=== PATIENT | male | born 1950 | race Caucasian/White ===

== ENCOUNTER 2021-02-06 06:33 | Day surgery (SDC) | payer OTHER ==
--- NOTE | 2021-02-05 14:53 | RAD REPORT ---
EXAM DESCRIPTION: RAD - Chest Pa And Lat (2 Views) - 02/05/2021 2:48 pm CLINICAL HISTORY: preop Chest pain. COMPARISON: CHEST PA AND LAT 2 VIEW dated 08/25/2012 FINDINGS: The lungs are clear. The heart is moderately enlarged in size. No displaced fractures.
[2021-02-05 14:56] LABS: Absolute Lymphocytes (CBC) 0.9 K/uL (0.7-4.9); Basophils % 0.5 % (0-1.3); Hematocrit 38.7 % (39.6-49.0); Lymphocytes % 9.6 % (15.3-44.8); MPV 10.2 fL (7.6-11.3); RBC Red Blood Cell Count 4.23 M/uL (4.33-5.43)
[2021-02-05 15:10] LABS: Potassium 3.9 mmol/L (3.5-5.1)
[2021-02-06] MEDS ORDERED: Ringers Lactate 1,000 ML IV ONE ×2 (07:10→08:52)
[2021-02-06] MEDS ORDERED: propofoL 200 MG/20 ML VIAL IV ONE (07:43)
[2021-02-06] MEDS ORDERED: LIDOCAINE 2% MPF 5 ML VIAL ONE (07:44)
[2021-02-06] MEDS ORDERED: ONDANSETRON 4 MG/2 ML VIAL ONE ×2 (07:44→09:22)
[2021-02-06] MEDS ORDERED: FENTANYL CITR 100 MCG/2 ML ONE ×2 (07:44→08:16)
[2021-02-06] MEDS ORDERED: KETOROLAC 30 MG/ML INJ ONE (07:44)
[2021-02-06] MEDS ORDERED: dexAMETHasone 4 MG/ML VIAL ONE (07:44)
[2021-02-06] MEDS ORDERED: CEFAZOLIN/SWI 1gm 1 GM/10 ML SYR ONE (07:48)
[2021-02-06] MEDS ORDERED: Phenylephrine HCl 10 MG/ML 1 ML VIAL ONE (08:04)
[2021-02-06] MEDS ORDERED: NS 0.9% VIAL 10 ML ONE (08:04)
[2021-02-06] MEDS ORDERED: ROCURONIUM 50 MG/5 ML VIAL IV ONE (08:06)
--- NOTE | 2021-02-06 08:35 | P.BOP ---
Preoperative diagnosis: tender recurrent right inguinal hernia, tender umbilical hernia Postoperative diagnosis: same Primary procedure: 1. Open repair tender recurrent right inguinal hernia with mesh Secondary procedure: 2. Open repair tender umbilical hernia Learning And Development Officer: YELENA ROUSSEAU (TELECOM SPECIALIST) Estimated blood loss: <10cc Specimen: hernia sac Findings: as above Anesthesia: General Complications: None Implants: medium mesh and plug Transferred to: Recovery Room Condition: Good
[2021-02-06] MEDS ORDERED: NA CHLORIDE 0.9% 50 ML ONE (08:44)
[2021-02-06] MEDS ORDERED: GLYCOPYRROLATE 0.2 MG/ML SYR ONE (08:47)
[2021-02-06] MEDS ORDERED: NEOSTIGMINE 1 MG/ML -5 ML ONE (08:51)
[2021-02-06] MEDS: FENTANYL CITR 250 MCG/5 ML ONE ×3 (09:07→09:18)
[2021-02-06] MEDS ORDERED: HYDROMORPHONE HCL 1 MG/ML INJ ONE (09:42)
[2021-02-06] MEDS ORDERED: PROMETHAZINE INJ 25 MG/ML AMP ONE (09:42)
[2021-02-06] MEDS ORDERED: HYDROCODONE/APAP 10/325 TAB ONE (10:37)
[2021-02-06 11:22] VITALS: BP 148/99; TEMP 96.9
[2021-02-06 11:24] VITALS: O2SAT 95
== END 2021-02-06 10:24 | disposition home or self-care (01) ==
LOC: OR 06:33
PROVIDERS: ATTEND Surgery
PROC: 0WQF0ZZ Repair Abdominal Wall, Open Approach (ICD-10-PCS; principal; 2021-02-06 07:30)
PROC: 0YU50JZ Supplement Right Inguinal Region with Synthetic Substitute, Open Approach (ICD-10-PCS; 2021-02-06 07:30)
DX: K40.91 Unilateral inguinal hernia, without obstruction or gangrene, recurrent (principal); K42.9 Umbilical hernia without obstruction or gangrene; Z20.822 Contact with and (suspected) exposure to COVID-19
CPT/HCPCS: 85025; 80048; 36415; 88302; 71046; 49585; 49505; U0003; J2704; J1100; J2550; J2370; J3010 ×3; J1170; J2710; J0690; J7120 ×2; J2405 ×2; 88304

== ENCOUNTER 2021-04-12 20:05 | Emergency (ER) | payer OTHER ==
[2021-04-12 21:11] LABS: Basophils % 1.3 % (0-1.3); Hematocrit 16.5 % (39.6-49.0); Lymphocytes % 16.5 % (15.3-44.8); MPV 9.1 fL (7.6-11.3); RBC Red Blood Cell Count 2.12 M/uL (4.33-5.43)
[2021-04-12 21:18] LABS: Protime INR 3.82
[2021-04-12] MEDS ORDERED: NA CHLORIDE 0.9% 250 ML ONE ×2 (21:22→22:38)
[2021-04-12] MEDS ORDERED: PANTOPRAZOLE 40 MG INJ ONE (21:22)
--- NOTE | 2021-04-12 21:27 | RAD REPORT ---
EXAM DESCRIPTION: CT - Head Brain Wo Cont - 04/12/2021 9:15 pm CLINICAL HISTORY: Syncope;Dizziness Headache, drowsiness COMPARISON: Abdomen Pelvis Wo Contrast dated 04/12/2021 TECHNIQUE: All CT scans are performed using dose optimization technique as appropriate and may inclu de automated exposure control or mA/KV adjustment according to patient size. FINDINGS: No intracranial hemorrhage, hydrocephalus or extra-axial fluid collection.Mild generalized brain atrophy noted.No areas of brain edema or evidence of midline shift. The paranasal sinuses and mastoids are clear. The calvarium is intact. IMPRESSION: No acute intracranial abnormality.
--- NOTE | 2021-04-12 21:33 | RAD REPORT ---
EXAM DESCRIPTION: CT - Abdomen Pelvis Wo Contrast - 04/12/2021 9:21 pm CLINICAL HISTORY: Abdominal pain. GI BLEED COMPARISON: No comparisons TECHNIQUE: CT imaging of the abdomen and pelvis was performed without contrast. Solid organ, bowel a nd vascular assessment is limited due to lack of IV and oral contrast. All CT scans are performed using dose optimization technique as appropriate and may include automated exposure control or mA/KV adjustment according to patient size. FINDINGS: Small right pleural effusion.Mild free fluid is seen in the upper abdomen. The liver contains a vague 12 mm low-density lesion in the left lobe, incompletely assessed.No aggres sive liver lesion or biliary dilatation seen. The spleen, pancreas, adrenal glands and kidneys are wi thin normal limits. Mild free fluid is seen in the pelvis. There is significant stool in the rectosigmoid colon. Prominen t diverticulosis of the sigmoid colon is present. No evidence of diverticulitis. No free air or bowel obstruction. The appendix is normal. The osseous structures are within normal limits. IMPRESSION: Advanced sigmoid diverticulosis coli without diverticulitis. Small right pleural effusion. Mild free fluid in the abdomen and pelvis. A limited non-contrast examination was performed as detailed.
[2021-04-12 21:36] LABS: Anisocytosis 1+; Bilirubin Direct 0.7 mg/dL (0-0.2); Bilirubin Total 1.4 mg/dL (0.2-1.0); Blood Morphology Comment NOTED (NOT SEEN); Magnesium 2.2 mg/dL (1.8-2.4); Platelet Estimate ADEQ; Protein, Total 6.1 g/dL (6.4-8.2); Troponin (Emerg Dept Use Only) 0.02 ng/mL (0.0-0.045); White Blood Cell Scan OK (OK)
[2021-04-12 21:37] LABS: Potassium 2.9 mmol/L (3.5-5.1)
--- NOTE | 2021-04-12 21:45 | RAD REPORT ---
EXAM DESCRIPTION: RAD - Chest Single View - 04/12/2021 9:36 pm CLINICAL HISTORY: dizziness Chest pain. COMPARISON: Chest Pa And Lat (2 Views) dated 02/05/2021; CHEST PA AND LAT 2 VIEW dated 08/25/2012 FINDINGS: Portable technique limits examination quality. The lungs are grossly clear. The heart is moderately enlarged. No displaced fractures.
[2021-04-12 21:58] LABS: Urine Blood 1+ (Negative); Urine Glucose Negative (Negative); Urine Protein 1+ (Negative); Urine Specific Gravity 1.015 (1.005-1.030)
--- NOTE | 2021-04-12 22:34 | EDPHYS ---
[facility] Name: Deonte Rojo Age: 70 yrs Sex: Male : 1950 Arrival Date: 04/12/2021 Time: 20:10 Bed 4 Private MD: ED Physician Gavin Lee HPI: 04/12 20:43 This 70 yrs old Male presents to ER via EMS with complaints of Near Syncope. mh7 20:43 The patient has experienced near-syncope, almost passed out, felt dizzy, felt faint. mh7 Onset: The symptoms/episode began/occurred today. Duration: This was a single episode, that lasted an unknown period of time. Context: the episode(s) was witnessed, by no one, occurred at home, occurred while the patient was standing, walking, Just prior to the episode the patient experienced dizziness, lightheadedness. Associated injury: The patient did not suffer any apparent associated injury. 20:44 Associated signs and symptoms: Pertinent positives: dizziness, lightheadedness, mh7 shortness of breath, Pertinent negatives: abdominal pain, agitation, ataxia, blurred vision, chest pain, combativeness, confusion, diaphoresis, diarrhea, headache, nausea, numbness, palpitations, seizure, tingling, vertigo, vomiting, weakness, dark stools for the past few days. Current symptoms: Currently, the patient is not experiencing any symptoms, the patient feels back to baseline, no decreased level of consciousness, no confusion, no dysphasia, no headache, no paralysis, no visual changes. Historical: - Allergies: 20:15 No Known Allergies; em - PMHx: 20:15 Hyperlipidemia; Hypertension; Atrial Fib; em - PSHx: 20:15 Hernia repair; em - Immunization history:: Adult Immunizations up to date, Client reports receiving the 2nd dose of the Covid vaccine. - Social history:: Smoking status: Patient denies any tobacco usage or history of. ROS: 20:44 Constitutional: Negative for fever, chills, and weight loss, Eyes: Negative for injury, mh7 pain, redness, and discharge, ENT: Negative for injury, pain, and discharge, Neck: Negative for injury, pain, and swelling, Cardiovascular: Negative for chest pain, palpitations, and edema, Respiratory: Negative for shortness of breath, cough, wheezing, and pleuritic chest pain, Abdomen/GI: Negative for abdominal pain, nausea, vomiting, diarrhea, and constipation, Back: Negative for injury and pain, : Negative for injury, bleeding, discharge, and swelling, MS/Extremity: Negative for injury and deformity, Skin: Negative for injury, rash, and discoloration, Neuro: Negative for headache, weakness, numbness, tingling, and seizure, Psych: Negative for depression, anxiety, suicide ideation, homicidal ideation, and hallucinations, Allergy/Immunology: Negative for hives, rash, and allergies, Endocrine: Negative for neck swelling, polydipsia, polyuria, polyphagia, and marked weight changes, Hematologic/Lymphatic: Negative for swollen nodes, abnormal bleeding, and unusual bruising. Exam: 20:44 Constitutional: This is a well developed, well nourished patient who is awake, alert, mh7 and in no acute distress. Head/Face: Normocephalic, atraumatic. 20:44 Neck: Trachea midline, no thyromegaly or masses palpated, and no cervical lymphadenopathy. Supple, full range of motion without nuchal rigidity, or vertebral point tenderness. No Meningismus. Chest/axilla: Normal chest wall appearance and motion. Nontender with no deformity. No lesions are appreciated. Cardiovascular: Regular rate and rhythm with a normal S1 and S2. No gallops, murmurs, or rubs. Normal PMI, no JVD. No pulse deficits. Respiratory: Lungs have equal breath sounds bilaterally, clear to auscultation and percussion. No rales, rhonchi or wheezes noted. No increased work of breathing, no retractions or nasal flaring. Abdomen/GI: Soft, non-tender, with normal bowel sounds. No distension or tympany. No guarding or rebound. No evidence of tenderness throughout. 20:44 Back: No spinal tenderness. No costovertebral tenderness. Full range of motion. 20:44 MS/ Extremity: Pulses equal, no cyanosis. Neurovascular intact. Full, normal range of motion. Neuro: Awake and alert, GCS 15, oriented to person, place, time, and situation. Cranial nerves II-XII grossly intact. Motor strength 5/5 in all extremities. Sensory grossly intact. Cerebellar exam normal. Normal gait. Psych: Awake, alert, with orientation to person, place and time. Behavior, mood, and affect are within normal limits. 20:44 Eyes: Periorbital structures: appear normal, Pupils: equal, round, and reactive to light and accomodation, Extraocular movements: intact throughout, Conjunctiva: pale, bilaterally, Corneas: are normal, Sclera: no appreciated abnormality. 20:44 Abdomen/GI: Rectal exam: Prostate: normal, rectal tone normal, Stool: brown, guaiac positive, hemorrhoid(s), are not appreciated, mass, is not appreciated, swelling, is not appreciated, tenderness, is not appreciated, fecal impaction, is not appreciated, the exam is chaperoned by the nurse. 20:44 Skin: Appearance: Color: pale. Vital Signs: 20:10 BP 132 / 82; Pulse 89; Resp 18; Temp 97.8(O); Pulse Ox 97% on R/A; Weight 97.98 kg; em Height 6 ft. 1 in. (185.42 cm); Pain 0/10; 22:47 BP 112 / 69; Pulse 82; Resp 15; Temp 98.8; Pulse Ox 100% on 2 lpm NC; ea 23:27 BP 106 / 72; Pulse 83; Resp 14 S; Pulse Ox 97% ; bb 04/13 01:00 BP 116 / 70; Pulse 83; Resp 16; Temp 98.1; Pulse Ox 99% ; ea 02:00 BP 134 / 81; Pulse 80; Resp 16; Temp 97.8; Pulse Ox 99% ; ea 04/12 20:10 Body Mass Index 28.50 (97.98 kg, 185.42 cm) em MDM: 04/12 22:31 Differential Diagnosis: cardiac arrhythmia, cerebrovascular accident, drug effect, mh7 emotional response, GI bleed, idiopathic syncope, pseudo seizure, seizure, sepsis, transient ischemic attack, vasovagal episode. Data reviewed: vital signs, nurses notes, EMS record, lab test result(s), cardiac enzymes, CBC, electrolytes, urinalysis. Data interpreted: Pulse oximetry: on room air is 97 %. Interpretation: normal. Counseling: I had a detailed discussion with the patient and/or guardian regarding: the historical points, exam findings, and any diagnostic results supporting the discharge/admit diagnosis, lab results, radiology results, the need to transfer to another facility, [facility] does not immediately have the required specialist. Response to treatment: the patient's symptoms have mildly improved after treatment. 22:33 Patient medically screened. [facility] 04/12 20:34 Order name: Basic Metabolic Panel [facility] 04/12 20:34 Order name: CBC with Diff [facility] 04/12 20:34 Order name: LFT's [facility] 04/12 20:34 Order name: Magnesium [facility] 04/12 20:34 Order name: NT PRO-BNP; Complete Time: 21:43 [facility] 04/12 20:34 Order name: PT-INR; Complete Time: 21:25 [facility] 04/12 20:34 Order name: Troponin (emerg Dept Use Only); Complete Time: 21:43 [facility] 04/12 20:34 Order name: Type And Screen [facility] 04/12 20:35 Order name: Basic Metabolic Panel; Complete Time: 21:43 [facility] 04/12 20:35 Order name: CBC with Automated Diff; Complete Time: 21:43 [facility] 04/12 20:35 Order name: Liver (Hepatic) Function; Complete Time: 21:43 [facility] 04/12 20:35 Order name: Magnesium; Complete Time: 21:43 [facility] 04/12 21:05 Order name: Lipase; Complete Time: 21:43 [facility] 04/12 20:34 Order name: XRAY Chest (1 view); Complete Time: 21:51 [facility] 04/12 20:34 Order name: EKG; Complete Time: 20:35 [facility] 04/12 20:34 Order name: Cardiac monitoring; Complete Time: 21:10 [facility] 04/12 20:34 Order name: EKG - Nurse/Tech; Complete Time: 21:10 [facility] 04/12 20:42 Order name: CT Head Brain wo Cont; Complete Time: 21:35 [facility] 04/12 20:42 Order name: CT Abd/Pelvis - Without Contrast; Complete Time: 21:35 [facility] 04/12 21:36 Order name: CBC Smear Scan; Complete Time: 21:43 [facility] 04/12 21:52 Order name: Packed RBC Leukored [facility] 04/12 21:57 Order name: Urine Dipstick-Ancillary; Complete Time: 22:00 [facility] 04/12 22:35 Order name: ABO/RH no charge [facility] 04/12 20:34 Order name: IV Saline Lock; Complete Time: 21:10 [facility] 04/12 20:34 Order name: Labs collected and sent; Complete Time: 21:10 [facility] 04/12 20:34 Order name: O2 Per Protocol; Complete Time: 21:10 [facility] 04/12 20:34 Order name: O2 Sat Monitoring; Complete Time: 21:10 [facility] 04/12 20:34 Order name: Urine Dipstick-Ancillary (obtain specimen); Complete Time: 22:00 [facility] Administered Medications: 21:09 Drug: ProTONIX (pantoprazole) 80 mg Route: IVP; Site: right antecubital; 22:01 Follow up: Response: No adverse reaction 21:09 Drug: ProTONIX (pantoprazole) 8 mg/hr Route: IV; Rate: 25 ml/hr; Site: right ea antecubital; 04/13 02:16 Follow up: Response: No adverse reaction; IV Status: Infusion continued upon transfer 04/12 23:28 Drug: D5-1/2 NS with KCl 20 mEq/L 1000 ml Route: IV; Rate: 100 ml/hr; Site: right ea antecubital; 04/13 02:17 Follow up: Response: No adverse reaction; IV Status: Infusion continued upon transfer Disposition: 04/12/21 22:33 Transfer ordered to [facility]. Diagnosis are Symptomatic Anemia, GI Bleed, Coagulopathy. - Reason for transfer: Higher level of care. - Accepting physician is Dr. Burgos. - Condition is Stable. - Problem is new. - Symptoms have improved. Signatures: Dispatcher [employer] EDOR Jovan Morales RN RN em Attema, Lee, AR[employer] RANGER-C AR[employer] RANGER-Cla1 Yvette Sadnhu RN RN ea Holmes, Maurice, MD MD [facility] Corrections: (The following items were deleted from the chart) 04/12 21:05 20:43 LIPASE+C.LAB.BRZ ordered. EDOR EDMS 21:50 21:19 PACKED RBC LEUKORED -1+BB.LAB.BRZ ordered. EDOR EDMS 21:50 21:20 ABO/RH typing ordered. [facility] EDOR 21:50 21:20 Antibody Screen ordered. [facility] 04/13 00:02 04/12 22:33 04/12/2021 22:33 Transfer ordered to [facility]. mh7 Diagnosis is Symptomatic Anemia; GI Bleed; Coagulopathy. Reason for transfer: Higher level of care. Accepting physician is Dr. Coffey. Condition is Stable. Problem is new. Symptoms have improved. mh7 04/13 02:16 00:02 04/12/2021 22:33 Transfer ordered to [facility]. ea Diagnosis is Symptomatic Anemia; GI Bleed; Coagulopathy. Reason for transfer: Higher level of care. Accepting physician is Dr. Burgos. Condition is Stable. Problem is new. Symptoms have improved. mh7
--- NOTE | 2021-04-12 22:34 | ER ---
Nurse's Notes [facility] Name: Deonte Rojo Age: 70 yrs Sex: Male : 1950 Arrival Date: 04/12/2021 Time: 20:10 Bed 4 Private MD: Diagnosis: Symptomatic Anemia;GI Bleed;Coagulopathy Presentation: 04/12 20:10 Chief complaint: EMS states: was at home and had a near syncope, felt dizzy for a few em days, also reports dark stools for a few days, denies pain, had a hernia repair on February 13. Coronavirus screen: Client denies travel out of the [place] in the last 14 days. Ebola Screen: Patient negative for fever greater than or equal to 101.5 degrees Fahrenheit, and additional compatible Ebola Virus Disease symptoms Patient denies exposure to infectious person. Patient denies travel to an Ebola-affected area in the 21 days before illness onset. No symptoms or risks identified at this time. Initial Sepsis Screen: Does the patient meet any 2 criteria? No. Patient's initial sepsis screen is negative. Does the patient have a suspected source of infection? No. Patient's initial sepsis screen is negative. Risk Assessment: Do you want to hurt yourself or someone else? Patient reports no desire to harm self or others. Onset of symptoms was April 12, 2021. 20:10 Method Of Arrival: EMS: [facility] em 20:10 Acuity: [place] 3 em Historical: - Allergies: 20:15 No Known Allergies; em - PMHx: 20:15 Hyperlipidemia; Hypertension; Atrial Fib; em - PSHx: 20:15 Hernia repair; em - Immunization history:: Adult Immunizations up to date, Client reports receiving the 2nd dose of the Covid vaccine. - Social history:: Smoking status: Patient denies any tobacco usage or history of. Screenin:43 Abuse screen: Denies threats or abuse. Nutritional screening: No deficits noted. ea Tuberculosis screening: No symptoms or risk factors identified. Fall Risk IV access (20 points). Assessment: 20:50 General: Appears in no apparent distress. Behavior is appropriate for age. Pain: Denies ea pain. Neuro: Level of Consciousness is awake, alert, obeys commands, Oriented to person, place, situation. Cardiovascular: Patient's skin is warm and dry. Respiratory: Airway is patent Respiratory effort is even, unlabored, Respiratory pattern is regular, symmetrical. Derm: Skin is dry, Skin is pale, Skin temperature is warm. 21:30 Reassessment: Patient and/or family updated on plan of care and expected duration. Pain ea level reassessed. Pt alert and oriented x 3. Respirations unlabored, skin warm, and dry. 23:28 Reassessment: Patient is alert, oriented x 3, equal unlabored respirations, skin bb warm/dry/pink. pt awaiting transfer. 04/13 01:10 Reassessment: Patient and/or family updated on plan of care and expected duration. Pain ea level reassessed. Patient is alert, oriented x 3, equal unlabored respirations, skin warm/dry/pink. Report called to receiving nurse at [facility]. Awaiting on ambulance for transportation. 02:14 Reassessment: Patient and/or family updated on plan of care and expected duration. Pain ea level reassessed. Patient is alert, oriented x 3, equal unlabored respirations, skin warm/dry/pink. [facility] at facility for transfer. Pt left ED via stretcher per EMS. Pt tolerating well. Vital Signs: 04/12 20:10 BP 132 / 82; Pulse 89; Resp 18; Temp 97.8(O); Pulse Ox 97% on R/A; Weight 97.98 kg; em Height 6 ft. 1 in. (185.42 cm); Pain 0/10; 22:47 BP 112 / 69; Pulse 82; Resp 15; Temp 98.8; Pulse Ox 100% on 2 lpm NC; ea 23:27 BP 106 / 72; Pulse 83; Resp 14 S; Pulse Ox 97% ; bb 04/13 01:00 BP 116 / 70; Pulse 83; Resp 16; Temp 98.1; Pulse Ox 99% ; ea 02:00 BP 134 / 81; Pulse 80; Resp 16; Temp 97.8; Pulse Ox 99% ; ea 04/12 20:10 Body Mass Index 28.50 (97.98 kg, 185.42 cm) em ED Course: 04/12 20:10 Patient arrived in ED. em 20:15 Triage completed. em 20:15 Arm band placed on. em 20:20 Gavin Lee MD is Attending Physician. [facility] 20:43 Yvette Sandhu, RN is Primary Nurse. ea 20:50 Patient has correct armband on for positive identification. Bed in low position. Call ea light in reach. Side rails up X2. 21:15 CT Head Brain wo Cont In Process Unspecified. EDMS 21:21 CT Abd/Pelvis - Without Contrast In Process Unspecified. EDMS 21:37 XRAY Chest (1 view) In Process Unspecified. EDMS 21:46 initiated a transfer with Leslie Dinh from [facility]. mw2 22:[address] Lee with the GI doctor from [facility]. mw2 22:02 No provider procedures requiring assistance completed. ea 22:[address] Lee with the Hospitalist from [facility]. mw2 22:[address] [facility] called to inform us that "we will have beds mw2 to accommodate the patient, but they are dirty right now when they are available we will call you back.". 23:34 Patient transferred, IV remains in place. ea 23:55 administrative approval given by Leslie Dinh/ patient has been accepted to [address] bed 2439/ Dr. Burgos accepted the patient in transfer/ report to be called to [phone]. Administered Medications: 21:09 Drug: ProTONIX (pantoprazole) 80 mg Route: IVP; Site: right antecubital; ea 22:01 Follow up: Response: No adverse reaction ea 21:09 Drug: ProTONIX (pantoprazole) 8 mg/hr Route: IV; Rate: 25 ml/hr; Site: right ea antecubital; 04/13 02:16 Follow up: Response: No adverse reaction; IV Status: Infusion continued upon transfer 04/12 23:28 Drug: D5-1/2 NS with KCl 20 mEq/L 1000 ml Route: IV; Rate: 100 ml/hr; Site: right ea antecubital; 04/13 02:17 Follow up: Response: No adverse reaction; IV Status: Infusion continued upon transfer Outcome: 04/12 22:33 ER care complete, transfer ordered by . [facility] 23:34 Instructed on the need for transfer, Demonstrated understanding of instructions. ea 04/13 02:14 Transferred by ground EMS to [facility], Transfer form completed. ea Condition: stable 02:16 Patient left the ED. ea Signatures: Dispatcher [employer] Jovan Hoffmann RN RN Hermila Montoya RN RN bb Antunez, Elena, RN RN ea [place], MyKena 2 Gavin Lee MD MD mh7
[2021-04-12] MEDS ORDERED: D5.45NS W/KCL 20MEQ 1,000 ML IV ONE (23:10)
[2021-04-13 02:30] VITALS: O2SAT 99
[2021-04-13 02:32] VITALS: BP 134/81; TEMP 97.8
--- NOTE | 2021-04-13 06:57 | EKG ---
Test Date: 2021-04-12 Test Time: 20:55:57 Blueprint Processor: SHELLIE MEASUREMENT RESULTS: Intervals: Rate: 86 HI: QRSD: 108 QT: 428 QTc: 512 [place]: P: HI: QRS: 91 T: -68 INTERPRETIVE STATEMENTS: Atrial fibrillation Rightward axis Cannot rule out Anterior infarct, age undetermined ST & T wave abnormality, consider inferolateral ischemia or digitalis effect Prolonged QT Abnormal ECG Compared to ECG 12/16/2017 08:05:54 Right-axis deviation now present Myocardial infarct finding now present ST (T wave) deviation now present Possible ischemia now present Prolonged QT interval now present Sinus bradycardia no longer present Sinus arrhythmia no longer present Electronically Signed On 04-13-21 06:56:11 CDT by Paddy Sanz
== END 2021-04-13 02:16 | disposition short-term general hospital (02) ==
LOC: ER 20:05
PROC: 30233N1 Transfusion of Nonautologous Red Blood Cells into Peripheral Vein, Percutaneous Approach (ICD-10-PCS; principal; 2021-04-13)
DX: D64.9 Anemia, unspecified (principal); D68.9 Coagulation defect, unspecified; K92.2 Gastrointestinal hemorrhage, unspecified; I10 Essential (primary) hypertension; I48.91 Unspecified atrial fibrillation
CPT/HCPCS: 93005; 85025; 80048; 36415; 86900; 83735; 86850; 85610; 86901; 80076; 81003; 84484; 83690; 83880; 70450; 74176; 71045; 36430; C9113; P9016 ×2; J7050 ×2; 96365; 96366; 99285

== ENCOUNTER 2022-02-10 23:03 | Inpatient (IN) | payer OTHER ==
--- OUTSIDE RECORDS SUMMARY | 2022-02-10 23:08 | XMS REPORT | Continuity of Care Document ---
:1950 Author Organization [facility] t Address [address] [place] [address] Care Team Providers Name Role Phone Unknown Primary Care Physician Unavailable RUY Attending Clinician Unavailable NITESH HIGH Attending Clinician Unavailable LILLY Attending Clinician Unavailable RUY Attending Clinician Unavailable RUY Admitting Clinician Unavailable NITESH HIGH Admitting Clinician Unavailable Payers Payer Name Policy Type Policy Number Effective Date Expiration Date S el MEDICARE A B [id number] 2013 00:00:00 GENERIC MEDICARE [id number] 2021 SUPPLEMENT 00:00:00 MEDICARE PART A AND [id number] 2013 B 00:00:00 MEDICARE PART A \\T\\ [id number] 2013 B - MEDICARE 00:00:00 MEDIGAP-GENERIC - [id number] 2021 GENERIC PAYOR 00:00:00 Problems This patient has no known problems. Allergies, Adverse Reactions, Alerts Allergy Allergy Status Severity Reaction(s) Onset Inactive Treating Comm ents Source Name Type Date Date Clinician NO KNOWN Allergy Active [facility] Social History Social Habit Start Date Stop Date Quantity Comments Source Exposure to Not sure [facility] SARS-CoV-2 (event) Tobacco use and 2021-11-18 2021-11-18 Former smokeless [facility] exposure 00:00:00 00:00:00 tobacco user Alcohol intake 2021-11-18 2021-11-18 Ex-drinker [facility] 00:00:00 00:00:00 (finding) Sex Assigned At [birth year] [facility] 00:00:00 00:00:00 Smoking Status Start Date Stop Date Source Ex-smoker 2021-11-18 00:00:00 2021-11-18 [facility]00:00 [facility] Ordered Filled Start Stop Current Ordering Indication Dosage Frequency Signature Comments Components Source Medication Medication Date Date Medication? Clinician (SIG) Name Name atenolol Yes 1{tbl} QD Take 1 [facility] (Tenormin) 1-28 tablet by [facility] th 100 MG 00:00: mouth 1 tablet 00 (one) time each day. furosemide Yes 40mg QD Take 40 mg U T (Lasix) 40 1-20 by mouth 1 Hea lth MG tablet 00:00: (one) time 00 each day. Eliquis 5 Yes 5mg Q.5D Take 5 mg UT MG tablet 1-20 by mouth 2 Heal th 00:00: (two) 00 times a day. azelastine Yes 1{spray QD Administer UT (Astelin) 1-13 } 1 spray [facility] 0.1 % nasal 00:00: into each spray 00 nostril 1 (one) time each day. zolpidem Yes 1{tbl} QD Take 1 UT (Ambien) 10 1-11 tablet by [facility] lth MG tablet 00:00: mouth 1 00 (one) time each day. potassium 2020-10 Yes 20meq QD Take 20 UT chloride CR 2-20 mEq by [facility] (Klor-Con 00:00: mouth 1 M20) 20 MEQ 00 (one) time ER tablet each day. with food irbesartan 2020-10 Yes 150mg QD Take 150 UT (Avapro) 2-16 mg by [facility] 150 MG 00:00: mouth 1 tablet 00 (one) time each day. rosuvastati 2020-10 Yes 1{tbl} QD Take 1 UT n (Crestor) 2-02 tablet by [facility] lt 20 MG 00:00: mouth 1 tablet 00 (one) time each day. gabapentin Yes 300mg Take 300 UT (Neurontin) 9-29 mg by [facility] 300 MG 00:00: mouth capsule 00 every night. TAKE 1 CAPSULE BY MOUTH EVERY DAY AT BEDTIME potassium 2020-0 2021- No 40meq QD Take 40 UT chloride CR 6-29 11-[facility] (K-Tab[facility] 20 00:00: 00:00 mouth 1 MEQ ER 00 :00 (one) time tablet each day. Flovent HFA Yes 1{puff} Inhale 1 UT 110 MCG/ACT 5-31 puff 1 Health inhaler 00:00: (one) time 00 each day if needed. hydroCHLORO Yes 12.5mg QD Take 12.5 UT thiazide 4-13 mg by Health (HYDRODiuri 00:00: mouth 1 l) 12.5 MG 00 (one) time tablet each day. Xarelto 20 Yes 20mg Take 20 mg U T MG tablet 4-11 by mouth 1 Heal th 00:00: (one) time 00 each day before evening meal. Vital Signs Vital Name Observation Time Observation Value Comments Source WEIGHT 2021-04-13 03:37:00 99.111 kg HEIGHT 2021-04-13 03:37:00 188 cm Systolic blood pressure 2021-11-18 16:29:00 161 mm[Hg] [facility] Diastolic blood pressure 2021-11-18 16:29:00 93 mm[Hg] [facility] Heart rate 2021-11-18 16:29:00 89 /min [facility] Body temperature 2021-11-18 16:29:00 36.28 Marie [facility] Body height 2021-11-18 16:29:00 185.4 cm [facility] 2021-11-18 16:29:00 82.555 kg [facility] BMI 2021-11-18 16:29:00 24.01 kg/m2 [facility] WEIGHT 2021-04-13 03:37:00 99.111 kg HEIGHT 2021-04-13 03:37:00 188 cm Procedures This patient has no known procedures. Encounters Start End Encounter Admission Attending Care Care Encounter Source Date/Time Date/Time Type Type Clinicians Facility Department ID 2021-07-28 Outpatient CARINA REDMOND Surgery [id number] [facility] 04:47:31 [facility] 2021-04-13 Inpatient ER CARINA HIGH Internal [id number] [facility] 03:21:00 [facility] 2021-11-18 2021-11-18 Office [facility] [id number] [place] 10:45:00 11:15:00 Visit ARIEL BURNS [id number] H [facility] [id number] [facility] [id number] 2021-05-01 2021-05-01 Outpatient DOM REDMOND M [id number] [facility] 16:21:23 16:38:26 [facility] Results Test Description Test Time Test Comments Results Result Comments Source TISSUE EXAM 2021-04-17 Surgical Pathology 08:12:00 Report Case: [id number] Authorizing Provider: Chester Redmond MD Collected: 04/15/2021 02:56 PM Ordering Location: [address] Received: 04/16/2021 09:23 AM Service Pathologist: Liam Daniel MD Specimens: A) - Polyp, Colon - Right/Ascending, Ascending Colon Polyp with Hot Snare B) - Polyp, Colon - Sigmoid, Sigmoid Colon Polyp with Hot Snare PART A RIGHT ASCENDING COLON POLYP, POLYPECTOMY:SPECIMEN CONSISTS OF FIBRINOUS DEBRIS AND ACUTE INFLAMMATORY CELLS. PART B SIGMOID COLON POLYP, POLYPECTOMY:TUBULAR ADENOMA. Signing Pathologist Direct Phone Line: [phone] ically signed by Liam Daniel MD on 04/17/2021 at 8:12 [id number] BLEEDA. Ascending colonB. Sigmoid colonA. Received in formalin labeled the patient's name, accession number and "ascending colon polyp" is a 0.8 x 0.3 x 0.2 cm velasquez soft tissue fragment which is submitted in toto in A1.B. Received in formalin labeled the patient's name, accession number and "sigmoid colon polyp" is a 0.2 x 0.2 x 0.1 cm velasquez soft tissue fragment which is filtered and submitted in toto in B1.LAKSHMI Laio, MILTON (ASCP)[facility], [facility] of Pathology, [address] [place] [address], [facility], Department of Pathology, [address] [place] [address], [facility], Department of Pathology, [address] [place] [address], [place] [address], BASIC METABOLIC PANEL 2021-04-16 07:41:00 Test Item Value Reference Range Interpretation Comme nts SODIUM (BEAKER) (test code 138 meq/L 136-145 = 381) POTASSIUM (BEAKER) (test 3.2 meq/L 3.5-5.1 L code = 379) CHLORIDE (BEAKER) (test 110 meq/L 98-107 H code = 382) CO2 (BEAKER) (test code = 21 meq/L 22-29 L 355) BLOOD UREA NITROGEN 9 mg/dL 7-21 (BEAKER) (test code = 354) CREATININE (BEAKER) (test 1.02 mg/dL 0.57-1.25 code = 358) GLUCOSE RANDOM (BEAKER) 95 mg/dL 70-105 (test code = 652) CALCIUM (BEAKER) (test code 8.5 mg/dL 8.4-10.2 = 697) EGFR (BEAKER) (test code = 72 mL/min/1.73 sq m ESTIMATED GFR IS NOT 1092) ACCURATE CRE ATININE CLEARANCE IN SC EDICTING GLOMERULAR FILT RATION RATE. ESTIMATED GFR IS NOT APPLICABLE FOR DIALYSIS PATIENTS. Metaphysics Teacher ID - BOBRAHUL [id number] 07:41:00 Test Item Value Reference Range Interpretation Comments MAGNESIUM (BEAKER) (test code = 2.2 mg/dL 1.6-2.6 627) Metaphysics Teacher ID - SHANTANU LPROTHROMBIN [id number] 07:25:00 Test Item Value Reference Range Interpretation Comments PROTIME (BEAKER) 19.0 seconds 11.9-14.2 H (test code = 759) INR (BEAKER) (test 1.62 See_Comment [Automat ed message] code = 370) The system AdhereTx generated this result transmitted ref erence range: <=5.90. The reference range was not used to int erpret this result as normal/abnormal . RECOMMENDED COUMADIN/WARFARIN INR THERAPY RANGESSTANDARD DOSE: 2.0 - 3.0 Includes: PROPHYLAXIS forvenous thrombosis, systemic embolization; TREATMENT for venous thrombosis and/or pulmonary embolus.HIGH RISK: Target INR is 2.5-3.5 for patients with mechanical heart valves.CBC W/PLT COUNT & AUTO DIFFERENTIAL 2021-04-16 07:20:00 Test Item Value Reference Range Interpretation Comments WHITE BLOOD CELL COUNT (BEAKER) 8.6 K/ L 3.5-10.5 (test code = 775) RED BLOOD CELL COUNT (BEAKER) 2.99 M/ L 4.63-6.08 L (test code = 761) HEMOGLOBIN (BEAKER) (test code = 7.4 GM/DL 13.7-17.5 L 410) HEMATOCRIT (BEAKER) (test code = 25.0 % 40.1-51.0 L 411) MEAN CORPUSCULAR VOLUME (BEAKER) 83.6 fL 79.0-92.2 (test code = 753) MEAN CORPUSCULAR HEMOGLOBIN 24.7 pg 25.7-32.2 L (BEAKER) (test code = 751) MEAN CORPUSCULAR HEMOGLOBIN CONC 29.6 GM/DL 32.3-36.5 L (BEAKER) (test code = 752) RED CELL DISTRIBUTION WIDTH 18.4 % 11.6-14.4 H (BEAKER) (test code = 412) PLATELET COUNT (BEAKER) (test 194 K/CU MM 150-450 code = 756) MEAN PLATELET VOLUME (BEAKER) 10.7 fL 9.4-12.4 (test code = 754) NUCLEATED RED BLOOD CELLS 1 /100 WBC 0-0 H (BEAKER) (test code = 413) NEUTROPHILS RELATIVE PERCENT 71 % (BEAKER) (test code = 429) LYMPHOCYTES RELATIVE PERCENT 17 % (BEAKER) (test code = 430) MONOCYTES RELATIVE PERCENT 9 % (BEAKER) (test code = 431) EOSINOPHILS RELATIVE PERCENT 1 % (BEAKER) (test code = 432) BASOPHILS RELATIVE PERCENT 0 % (BEAKER) (test code = 437) NEUTROPHILS ABSOLUTE COUNT 6.15 K/ L 1.78-5.38 H (BEAKER) (test code = 670) LYMPHOCYTES ABSOLUTE COUNT 1.46 K/ L 1.32-3.57 (BEAKER) (test code = 414) MONOCYTES ABSOLUTE COUNT (BEAKER) 0.81 K/ L 0.30-0.82 (test code = 415) EOSINOPHILS ABSOLUTE COUNT 0.12 K/ L 0.04-0.54 (BEAKER) (test code = 416) BASOPHILS ABSOLUTE COUNT (BEAKER) 0.03 K/ L 0.01-0.08 (test code = 417) IMMATURE GRANULOCYTES-RELATIVE 1 % 0-1 PERCENT (BEAKER) (test code = 2801) HEMOGLOBIN AND [id number] 17:06:00 Test Item Value Reference Range Interpretation Comments HEMOGLOBIN (BEAKER) (test code = 7.6 GM/DL 13.7-17.5 L 410) HEMATOCRIT (BEAKER) (test code = 26.3 % 40.1-51.0 L 411) Metaphysics Teacher ID - [id number] BLOOD SMEAR - PATHOLOGIST [id number] 13:01:00 Test Item Value Reference Range Interpretation Comments RBC MORPHOLOGY Anisocytosis (BEAKER) (test code = 2846) RBC MORPHOLOGY Poikilocytosis (BEAKER) (test code = 21771) RBC MORPHOLOGY Hypochromasia (BEAKER) (test code = 65998) PERIPHERAL SMR REVIEW Cell counts confirmed. (BEAKER) (test code = 2640) [id number] Reva Jimenez M.D. (BEAKER) (test code = (electronic signature) 0486) HEPATITIS PANEL, [id number] 11:48:00 Test Item Value Reference Range Interpretation Comments HEPATITIS A IGM ANTIBODY (BEAKER) Nonreactive Nonreactive (test code = 498) HEPATITIS B CORE IGM ANTIBODY Nonreactive Nonreactive (BEAKER) (test code = 645) HEPATITIS C ANTIBODY (BEAKER) Nonreactive Nonreactive (test code = 367) HEPATITIS B SURFACE ANTIGEN (2) Nonreactive Nonreactive (BEAKER) (test code = 2585) Metaphysics Teacher ID - AAHAMIDHEPATITIS C [id number] 11:48:00 Test Item Value Reference Range Interpretation Comments HEPATITIS C ANTIBODY (BEAKER) Nonreactive Nonreactive (test code = 367) [id number] 08:57:00 Test Item Value Reference Range Interpretation Comments MAGNESIUM (BEAKER) (test code = 2.1 mg/dL 1.6-2.6 627) Metaphysics Teacher ID - AAHAMIDBASIC METABOLIC [id number] 05:57:00 Test Item Value Reference Range Interpretation Comments SODIUM (BEAKER) 140 meq/L 136-145 (test code = 381) POTASSIUM (BEAKER) 3.2 meq/L 3.5-5.1 L (test code = 379) CHLORIDE (BEAKER) 110 meq/L 98-107 H (test code = 382) CO2 (BEAKER) (test 21 meq/L 22-29 L code = 355) BLOOD UREA NITROGEN 9 mg/dL 7-21 (BEAKER) (test code = 354) CREATININE (BEAKER) 1.07 mg/dL 0.57-1.25 (test code = 358) GLUCOSE RANDOM 90 mg/dL 70-105 (BEAKER) (test code = 652) CALCIUM (BEAKER) 8.7 mg/dL 8.4-10.2 (test code = 697) EGFR (BEAKER) (test 68 mL/min/1.73 ESTIMA MICHAEL GFR IS code = 1092) sq m NOT ACCURATE CREATININE CLEARANCE IN PREDICTING GLOMERULAR FILTRATION RATE . ESTIMATED GFR I S NOT APPLICABLE FOR DIALYSIS PATIEN TS. Metaphysics Teacher ID - SHAHEED WSpecimen slightly ictericLACTATE DEHYDROGENASE (LDH) 2021-04-15 05:57:00 Test Item Value Reference Range Interpretation Comments LACTATE DEHYDROGENASE (BEAKER) (test 194 U/L 125-220 code = 635) Metaphysics Teacher ID - SHAHEED [id number] 05:52:00 Test Item Value Reference Range Interpretation Comments HAPTOGLOBIN (BEAKER) (test code = 136 mg/dL 14-258 366) Metaphysics Teacher ID Chiquis HUMMEL WCBC W/PLT COUNT & AUTO [id number] 05:50:00 Test Item Value Reference Range Interpretation Comments WHITE BLOOD CELL COUNT (BEAKER) 7.1 K/ L 3.5-10.5 (test code = 775) RED BLOOD CELL COUNT (BEAKER) 3.11 M/ L 4.63-6.08 L (test code = 761) HEMOGLOBIN (BEAKER) (test code = 7.6 GM/DL 13.7-17.5 L 410) HEMATOCRIT (BEAKER) (test code = 26.1 % 40.1-51.0 L 411) MEAN CORPUSCULAR VOLUME (BEAKER) 83.9 fL 79.0-92.2 (test code = 753) MEAN CORPUSCULAR HEMOGLOBIN 24.4 pg 25.7-32.2 L (BEAKER) (test code = 751) MEAN CORPUSCULAR HEMOGLOBIN CONC 29.1 GM/DL 32.3-36.5 L (BEAKER) (test code = 752) RED CELL DISTRIBUTION WIDTH 17.9 % 11.6-14.4 H (BEAKER) (test code = 412) PLATELET COUNT (BEAKER) (test 201 K/CU MM 150-450 code = 756) MEAN PLATELET VOLUME (BEAKER) 10.6 fL 9.4-12.4 (test code = 754) NUCLEATED RED BLOOD CELLS 2 /100 WBC 0-0 H (BEAKER) (test code = 413) NEUTROPHILS RELATIVE PERCENT 65 % (BEAKER) (test code = 429) LYMPHOCYTES RELATIVE PERCENT 18 % (BEAKER) (test code = 430) MONOCYTES RELATIVE PERCENT 14 % (BEAKER) (test code = 431) EOSINOPHILS RELATIVE PERCENT 1 % (BEAKER) (test code = 432) BASOPHILS RELATIVE PERCENT 1 % (BEAKER) (test code = 437) NEUTROPHILS ABSOLUTE COUNT 4.62 K/ L 1.78-5.38 (BEAKER) (test code = 670) LYMPHOCYTES ABSOLUTE COUNT 1.30 K/ L 1.32-3.57 L (BEAKER) (test code = 414) MONOCYTES ABSOLUTE COUNT (BEAKER) 0.99 K/ L 0.30-0.82 H (test code = 415) EOSINOPHILS ABSOLUTE COUNT 0.09 K/ L 0.04-0.54 (BEAKER) (test code = 416) BASOPHILS ABSOLUTE COUNT (BEAKER) 0.05 K/ L 0.01-0.08 (test code = 417) IMMATURE GRANULOCYTES-RELATIVE 0 % 0-1 PERCENT (BEAKER) (test code = 2801) PROTHROMBIN [id number] 05:50:00 Test Item Value Reference Range Interpretation Comments PROTIME (BEAKER) 17.8 seconds 11.9-14.2 H (test code = 759) INR (BEAKER) (test 1.49 See_Comment [Automat ed message] code = 370) The system AdhereTx generated this result transmitted ref erence range: <=5.90. The reference range was not used to int erpret this result as normal/abnormal . RECOMMENDED COUMADIN/WARFARIN INR THERAPY RANGESSTANDARD DOSE: 2.0 - 3.0 Includes: PROPHYLAXIS forvenous thrombosis, systemic embolization; TREATMENT for venous thrombosis and/or pulmonary embolus.HIGH RISK: Target INR is 2.5-3.5 for patients with mechanical heart valves.HEMOGLOBIN AND [id number] 14:50:00 Test Item Value Reference Range Interpretation Comments HEMOGLOBIN (BEAKER) (test code = 7.8 GM/DL 13.7-17.5 L 410) HEMATOCRIT (BEAKER) (test code = 25.7 % 40.1-51.0 L 411) Metaphysics Teacher ID - [id number] FUNCTION [id number] 10:19:00 Test Item Value Reference Range Interpretation Comments TOTAL PROTEIN (BEAKER) (test code = 5.6 gm/dL 6.0-8.3 L 770) ALBUMIN (BEAKER) (test code = 1145) 3.3 g/dL 3.5-5.0 L BILIRUBIN TOTAL (BEAKER) (test code 2.4 mg/dL 0.2-1.2 H = 377) BILIRUBIN DIRECT (BEAKER) (test 0.9 mg/dL 0.1-0.5 H code = 706) ALKALINE PHOSPHATASE (BEAKER) (test 115 U/L 40-150 code = 346) AST (SGOT) (BEAKER) (test code = 36 U/L 5-34 H 353) ALT (SGPT) (BEAKER) (test code = 28 U/L 6-55 347) Metaphysics Teacher ID - ALEXYS Varner slightly ictericGAMMA GLUTAMYL TRANSFERASE (GGT) 2021-04-14 10:19:00 Test Item Value Reference Range Interpretation Comments GAMMA GLUTAMYL TRANSFERASE (BEAKER) 82 U/L 9-64 H (test code = 364) Metaphysics Teacher ID Chiquis Varner slightly ictericBASIC METABOLIC [id number] 05:40:00 Test Item Value Reference Range Interpretation Comments SODIUM (BEAKER) 142 meq/L 136-145 (test code = 381) POTASSIUM (BEAKER) 3.1 meq/L 3.5-5.1 L (test code = 379) CHLORIDE (BEAKER) 110 meq/L 98-107 H (test code = 382) CO2 (BEAKER) (test 22 meq/L 22-29 code = 355) BLOOD UREA NITROGEN 12 mg/dL 7-21 (BEAKER) (test code = 354) CREATININE (BEAKER) 1.07 mg/dL 0.57-1.25 (test code = 358) GLUCOSE RANDOM 93 mg/dL 70-105 (BEAKER) (test code = 652) CALCIUM (BEAKER) 8.5 mg/dL 8.4-10.2 (test code = 697) EGFR (BEAKER) (test 68 mL/min/1.73 ESTIMA MICHAEL GFR IS code = 1092) sq m NOT ACCURATE CREATININE CLEARANCE IN PREDICTING GLOMERULAR FILTRATION RATE . ESTIMATED GFR I S NOT APPLICABLE FOR DIALYSIS PATIEN TS. Metaphysics Teacher ID - SHAHEED PRIESTpecimeshabana slightly ictericPROTHROMBIN [id number] 05:22:00 Test Item Value Reference Range Interpretation Comments PROTIME (BEAKER) 19.4 seconds 11.9-14.2 H (test code = 759) INR (BEAKER) (test 1.67 See_Comment [Automat ed message] code = 370) The system AdhereTx generated this result transmitted ref erence range: <=5.90. The reference range was not used to int erpret this result as normal/abnormal . RECOMMENDED COUMADIN/WARFARIN INR THERAPY RANGESSTANDARD DOSE: 2.0 - 3.0 Includes: PROPHYLAXIS forvenous thrombosis, systemic embolization; TREATMENT for venous thrombosis and/or pulmonary embolus.HIGH RISK: Target INR is 2.5-3.5 for patients with mechanical heart valves.CBC W/PLT COUNT & AUTO DIFFERENTIAL 2021-04-14 05:18:00 Test Item Value Reference Range Interpretation Comments WHITE BLOOD CELL COUNT (BEAKER) 6.3 K/ L 3.5-10.5 (test code = 775) RED BLOOD CELL COUNT (BEAKER) 2.97 M/ L 4.63-6.08 L (test code = 761) HEMOGLOBIN (BEAKER) (test code = 7.3 GM/DL 13.7-17.5 L 410) HEMATOCRIT (BEAKER) (test code = 24.3 % 40.1-51.0 L 411) MEAN CORPUSCULAR VOLUME (BEAKER) 81.8 fL 79.0-92.2 (test code = 753) MEAN CORPUSCULAR HEMOGLOBIN 24.6 pg 25.7-32.2 L (BEAKER) (test code = 751) MEAN CORPUSCULAR HEMOGLOBIN CONC 30.0 GM/DL 32.3-36.5 L (BEAKER) (test code = 752) RED CELL DISTRIBUTION WIDTH 17.4 % 11.6-14.4 H (BEAKER) (test code = 412) PLATELET COUNT (BEAKER) (test 183 K/CU MM 150-450 code = 756) MEAN PLATELET VOLUME (BEAKER) 10.4 fL 9.4-12.4 (test code = 754) NUCLEATED RED BLOOD CELLS 2 /100 WBC 0-0 H (BEAKER) (test code = 413) NEUTROPHILS RELATIVE PERCENT 69 % (BEAKER) (test code = 429) LYMPHOCYTES RELATIVE PERCENT 17 % (BEAKER) (test code = 430) MONOCYTES RELATIVE PERCENT 13 % (BEAKER) (test code = 431) EOSINOPHILS RELATIVE PERCENT 1 % (BEAKER) (test code = 432) BASOPHILS RELATIVE PERCENT 1 % (BEAKER) (test code = 437) NEUTROPHILS ABSOLUTE COUNT 4.33 K/ L 1.78-5.38 (BEAKER) (test code = 670) LYMPHOCYTES ABSOLUTE COUNT 1.07 K/ L 1.32-3.57 L (BEAKER) (test code = 414) MONOCYTES ABSOLUTE COUNT (BEAKER) 0.81 K/ L 0.30-0.82 (test code = 415) EOSINOPHILS ABSOLUTE COUNT 0.04 K/ L 0.04-0.54 (BEAKER) (test code = 416) BASOPHILS ABSOLUTE COUNT (BEAKER) 0.04 K/ L 0.01-0.08 (test code = 417) IMMATURE GRANULOCYTES-RELATIVE 0 % 0-1 PERCENT (BEAKER) (test code = 2801) U/S, ABDOMINAL, [id number] 02:12:00Abdomen limited area? Add comment if clarification is needed.->Right upper quadrantReason for exam:->Elevated INR, elevated bilirubin [facility] CENTERName: BRIAN MARINELLI : 1950 Sex: MFINAL REPORT Exam: Limited abdominal ultrasound. Clinical History: E levated INR, elevated bilirubin. Comparison: No prior study for direct comparison. Findings: Sonographic evaluation of the right upper quadrant of the abdomen was performed. Liver: 20 cm in length atthe right midclavicular line. Mildly increased echogenicity. No lesion is identified by ultrasound. Main portal vein is patent measuring 1.3 cm in diameter and demonstrates hepatopetal flow. Pulsatile flow in the main portal vein. Biliary tree: Common duct 5 mm. No intrahepatic biliary ductal dilatation. Gallbladder: No shadowing calculus/calculi. No wall thickening. No pericholecystic fluid. Negative sonographic Padilla's sign. Pancreas: Partially obscured by bowel gas but the visualizedportions are unremarkable. Ascites: None seen. Right kidney: 11.4 x 5.4 x 5.5 cm with cortical thickness of 2 cm. Normal cortical echogenicity. No mass. No shadowing calculus. No hydronephrosis.IVC/Aorta: Segments partially seen. Unremarkable. Impression:Hepatomegaly.Mildly echogenic liver suggesting parenchymal disease such as steatosis.Sonographically normal gallbladder. No biliary ductaldilatation.Pulsatile flow in the main portal vein, which may be due to hepatic or cardiac disease. No portal vein thrombosis. Signed: Everett Ferrelleport Verified Date/Time: 04/14/2021 02:12:11 SARS-COV2/RT-PCR ([facility])2021-04-13 18:18:00 Test Item Value Reference Range Interpretation Comments SARS-COV2/RT-PCR (test Negative Not Detected, Negative, code = 1777145) See external report for linked test SARS-COV-2 PERFORMING LAB [facility] (test code = 2084585) Negative result for this test determines that SARS-CoV-2 RNA was not present in the specimen above the Limit of Detection (LOD). However, Negative results do not preclude SARS-CoV-2 infection and should not be used as the sole basis for treatment or patient management decisions. Negative results mustbe combined with clinical observations, patient history, and epidemiological information. A false negative result may occur if a specimen is improperly collected, transported or handled. A false negative result should be considered if patient's recent exposures or clinical presentation indicate that COVID-19 (SARS-CoV-2) is likely and diagnostic tests for other causes of illness are negative. Re-testing should be considered in cases of suspected false negatives.The limit of detection for this assay is 800 copies/mL.This SARS CoV-2 test is a real-time RT-PCR test intended for the qualitative detection of nucleic acid from SARS-CoV-2 in a nasopharyngeal swab specimen collected from individuals susp ected of COVID-19 by their healthcare provider.This test has not been Food and Drug Administration (FDA) cleared or approved. This is a modified version of an approved Emergency Use Authorization (EUA) and is in the process of review by the FDA. Once authorized by the FDA, the issued EUA will be effective until the declaration that circumstances exist justifying the authorization of the emergency use of in vitro diagnostic tests for detection and/or diagnosis of COVID-19 is terminated under Section 564(b)(2) of the Act or the EUA is revoked under Section 564(g) of the Act.Fact Sheet for Healthcare Providers:https://www.[employer].com/sites/default/files/product/documents/Fact_Shee n_BP_Sjdsgzqfg_Xmqo_XGGU-WgL-5.pdfFact Sheet for Healthcare Patients:https://www.[employer]/sites/default/files/product/ documents/Dwdc_Jsoxl_Bklyptex_Oahn_AXBA-DaP-8.pdfPerforming Laboratory:[facility], [place] [address]HMJRLQQSVB AND [id number] 17:52:00 Test Item Value Reference Range Interpretation Comments HEMOGLOBIN (BEAKER) (test code = 6.4 GM/DL 13.7-17.5 L 410) HEMATOCRIT (BEAKER) (test code = 21.8 % 40.1-51.0 L 411) Metaphysics Teacher ID - [id number] 12:34:00 Test Item Value Reference Range Interpretation Comments RETICULOCYTE COUNT PCT (BEAKER) (test 1.9 % 0.5-1.8 H code = 575) Metaphysics Teacher ID - [id number] ID - [id number], TIBC, % SAT. (WITHOUT FERRITIN) 2021-04-13 12:21:00 Test Item Value Reference Range Interpretation Comments IRON (BEAKER) (test code = 547) 14.0 ug/dL 40.0-160.0 L TOTAL IRON BINDING CAPACITY 448 ug/dL 250-450 (BEAKER) (test code = 769) IRON % SATURATION (2) (BEAKER) 3 % 20-55 L (test code = 2590) Metaphysics Teacher ID - ADMINVITAMIN [id number] AND [id number] 12:07:00 Test Item Value Reference Range Interpretation Comments VITAMIN B12 1427 pg/mL 213-816 H (BEAKER) (test code = 774) FOLATE (BEAKER) 14.40 ng/mL See_Comment [Automated message] (test code = 362) The system which generated this result transmitted ref erence range: >=7.00. The reference range was not used to interpr et this result as normal/abnormal . Metaphysics Teacher ID - [id number] 12:07:00 Test Item Value Reference Range Interpretation Comments FERRITIN (BEAKER) (test code = 6.43 ng/mL 5.00-275.00 361) Metaphysics Teacher ID - ADMINPROTHROMBIN [id number] 11:33:00 Test Item Value Reference Range Interpretation Comments PROTIME (BEAKER) 24.2 seconds 11.9-14.2 H (test code = 759) INR (BEAKER) (test 2.20 See_Comment [Automat ed message] code = 370) The system [employer] h generated this result transmitted ref erence range: <=5.90. The reference range was not used to int erpret this result as normal/abnormal . RECOMMENDED COUMADIN/WARFARIN INR THERAPY RANGESSTANDARD DOSE: 2.0 - 3.0 Includes: PROPHYLAXIS forvenous thrombosis, systemic embolization; TREATMENT for venous thrombosis and/or pulmonary embolus.HIGH RISK: Target INR is 2.5-3.5 for patients with mechanical heart valves.[id number] 10:51:00 Test Item Value Reference Range Interpretation Comments MAGNESIUM (BEAKER) (test code = 2.1 mg/dL 1.6-2.6 627) Metaphysics Teacher ID - BSBASIC METABOLIC [id number] 07:25:00 Test Item Value Reference Range Interpretation Comments SODIUM (BEAKER) 139 meq/L 136-145 (test code = 381) POTASSIUM (BEAKER) 2.7 meq/L 3.5-5.1 L (test code = 379) CHLORIDE (BEAKER) 107 meq/L 98-107 (test code = 382) CO2 (BEAKER) (test 21 meq/L 22-29 L code = 355) BLOOD UREA NITROGEN 14 mg/dL 7-21 (BEAKER) (test code = 354) CREATININE (BEAKER) 1.12 mg/dL 0.57-1.25 (test code = 358) GLUCOSE RANDOM 103 mg/dL 70-105 (BEAKER) (test code = 652) CALCIUM (BEAKER) 8.3 mg/dL 8.4-10.2 L (test code = 697) EGFR (BEAKER) (test 64 mL/min/1.73 ESTIMA MICHAEL GFR IS code = 1092) sq m NOT ACCURATE CREATININE CLEARANCE IN PREDICTING GLOMERULAR FILTRATION RATE . ESTIMATED GFR I S NOT APPLICABLE FOR DIALYSIS PATIEN TS. Metaphysics Teacher ID - BSHEPATIC FUNCTION [id number] 07:25:00 Test Item Value Reference Range Interpretation Comments TOTAL PROTEIN (BEAKER) (test code = 5.5 gm/dL 6.0-8.3 L 770) ALBUMIN (BEAKER) (test code = 1145) 3.3 g/dL 3.5-5.0 L BILIRUBIN TOTAL (BEAKER) (test code 1.8 mg/dL 0.2-1.2 H = 377) BILIRUBIN DIRECT (BEAKER) (test 1.1 mg/dL 0.1-0.5 H code = 706) ALKALINE PHOSPHATASE (BEAKER) (test 110 U/L 40-150 code = 346) AST (SGOT) (BEAKER) (test code = 33 U/L 5-34 353) ALT (SGPT) (BEAKER) (test code = 24 U/L 6-55 347) Metaphysics Teacher ID - BSCBC W/PLT COUNT & AUTO [id number] 06:55:00 Test Item Value Reference Range Interpretation Comments WHITE BLOOD CELL COUNT (BEAKER) 5.8 K/ L 3.5-10.5 (test code = 775) RED BLOOD CELL COUNT (BEAKER) 2.44 M/ L 4.63-6.08 L (test code = 761) HEMOGLOBIN (BEAKER) (test code = 6.0 GM/DL 13.7-17.5 LL 410) HEMATOCRIT (BEAKER) (test code = 20.0 % 40.1-51.0 L 411) MEAN CORPUSCULAR VOLUME (BEAKER) 82.0 fL 79.0-92.2 (test code = 753) MEAN CORPUSCULAR HEMOGLOBIN 24.6 pg 25.7-32.2 L (BEAKER) (test code = 751) MEAN CORPUSCULAR HEMOGLOBIN CONC 30.0 GM/DL 32.3-36.5 L (BEAKER) (test code = 752) RED CELL DISTRIBUTION WIDTH 17.6 % 11.6-14.4 H (BEAKER) (test code = 412) PLATELET COUNT (BEAKER) (test 195 K/CU MM 150-450 code = 756) MEAN PLATELET VOLUME (BEAKER) 10.7 fL 9.4-12.4 (test code = 754) NUCLEATED RED BLOOD CELLS 1 /100 WBC 0-0 H (BEAKER) (test code = 413) NEUTROPHILS RELATIVE PERCENT 61 % (BEAKER) (test code = 429) LYMPHOCYTES RELATIVE PERCENT 23 % (BEAKER) (test code = 430) MONOCYTES RELATIVE PERCENT 15 % (BEAKER) (test code = 431) EOSINOPHILS RELATIVE PERCENT 1 % (BEAKER) (test code = 432) BASOPHILS RELATIVE PERCENT 1 % (BEAKER) (test code = 437) NEUTROPHILS ABSOLUTE COUNT 3.53 K/ L 1.78-5.38 (BEAKER) (test code = 670) LYMPHOCYTES ABSOLUTE COUNT 1.30 K/ L 1.32-3.57 L (BEAKER) (test code = 414) MONOCYTES ABSOLUTE COUNT (BEAKER) 0.87 K/ L 0.30-0.82 H (test code = 415) EOSINOPHILS ABSOLUTE COUNT 0.04 K/ L 0.04-0.54 (BEAKER) (test code = 416) BASOPHILS ABSOLUTE COUNT (BEAKER) 0.03 K/ L 0.01-0.08 (test code = 417) IMMATURE GRANULOCYTES-RELATIVE 0 % 0-1 PERCENT (BEAKER) (test code = 2801) PROTHROMBIN [id number] 06:38:00 Test Item Value Reference Range Interpretation Comments PROTIME (KOMAL) 25.9 seconds 11.9-14.2 H (test code = 759) INR (BEAKER) (test 2.40 See_Comment [Automat ed message] code = 370) The system [employer] generated this result transmitted ref erence range: <=5.90. The reference range was not used to int erpret this result as normal/abnormal . RECOMMENDED COUMADIN/WARFARIN INR THERAPY RANGESSTANDARD DOSE: 2.0 - 3.0 Includes: PROPHYLAXIS forvenous thrombosis, systemic embolization; TREATMENT for venous thrombosis and/or pulmonary embolus.HIGH RISK: Target INR is 2.5-3.5 for patients with mechanical heart valves.
[2022-02-10] MEDS ORDERED: ONDANSETRON 4 MG/2 ML VIAL ONE (23:16)
[2022-02-10] MEDS ORDERED: HYDROMORPHONE HCL 1 MG/ML INJ ONE ×2 (23:16→23:34)
[2022-02-10] MEDS ORDERED: FAMOTIDINE 20 MG/2 ML VIAL IV ONE (23:16)
[2022-02-10 23:35] LABS: Protime INR 1.67
[2022-02-10 23:49] LABS: Albumin 4.1 g/dL (3.4-5.0); Bilirubin Total 1.9 mg/dL (0.2-1.0); Magnesium 2.2 mg/dL (1.8-2.4); Potassium 3.3 mmol/L (3.5-5.1); Protein, Total 7.4 g/dL (6.4-8.2); Troponin High Sensitivity 9.1 pg/mL (<58.9)
[2022-02-11 00:07] LABS: Absolute Lymphocytes (CBC) 1.6 K/uL (0.7-4.9); Hematocrit 40.3 % (39.6-49.0); Lymphocytes % 29.3 % (15.3-44.8); MPV 10.3 fL (7.6-11.3); RBC Red Blood Cell Count 4.28 M/uL (4.33-5.43)
[2022-02-11] MEDS ORDERED: NA CHLORIDE 0.9% 100 ML IV ONE ×2 (00:47→08:51)
[2022-02-11] MEDS ORDERED: PIPERACIL/TAZO 3.375 GM VIAL IV ONE ×2 (00:48→08:51)
[2022-02-11] MEDS ORDERED: HYDROMORPHONE HCL 1 MG/ML INJ ONE (01:00)
--- NOTE | 2022-02-11 01:22 | EDPHYS ---
Physician Documentation [facility] Name: Deonte Rojo Age: 71 yrs Sex: Male : 1950 Arrival Date: 02/10/2022 Time: 23:05 Bed 20 Private MD: ED Physician Rivas Chand HPI: 02/10 23:30 This 71 yrs old Male presents to ER via EMS with complaints of Chest Pain and Abdomen cp Pain. 23:30 The patient or guardian reports chest pain that is located primarily in the anterior cp chest wall, bilaterally. 23:30 Onset: suddenly, tonight at about 2100. The patient presents with abdominal pain that cp is diffuse. Onset: The symptoms/episode began/occurred suddenly, after eating tomato. Associated signs and symptoms: Pertinent positives: nausea and vomiting, right groin pain, Pertinent negatives: constipation, diarrhea, fever, palpitations, shortness of breath. The symptoms are described as constant. Historical: - Allergies: 23:26 No Known Allergies; bb - PMHx: 23:26 Atrial Fib; Hyperlipidemia; Hypertension; hernia; GI bleed; bb - Immunization history:: Adult Immunizations up to date. - Social history:: Smoking status: unknown. ROS: 23:33 Constitutional: Negative for body aches, chills, fever, poor PO intake. cp 23:33 Eyes: Negative for injury, pain, redness, and discharge. cp 23:33 ENT: Negative for drainage from ear(s), ear pain, sore throat, difficulty swallowing, difficulty handling secretions. 23:33 Cardiovascular: Positive for chest pain, Negative for edema, palpitations. 23:33 Respiratory: Negative for cough, shortness of breath, wheezing. 23:33 Abdomen/GI: Positive for abdominal pain, nausea and vomiting, Negative for diarrhea, constipation, hematemesis, black/tarry stool, rectal bleeding. 23:33 Neuro: Negative for altered mental status, headache, weakness. 23:33 All other systems are negative. Exam: 23:35 Constitutional: The patient appears alert, awake, non-diaphoretic, non-toxic, well cp developed, well nourished, in obvious pain, uncomfortable. 23:35 Head/Face: Normocephalic, atraumatic. cp 23:35 Eyes: Periorbital structures: appear normal, Conjunctiva: normal, no exudate, no injection, Sclera: no appreciated abnormality, Lids and lashes: appear normal, bilaterally. 23:35 ENT: External ear(s): are unremarkable, Nose: is normal, Mouth: Lips: moist, Oral mucosa: moist, Posterior pharynx: Airway: no evidence of obstruction, patent. 23:35 Chest/axilla: Inspection: normal, Palpation: is normal, no crepitus, no tenderness. 23:35 Cardiovascular: Rate: normal, Rhythm: regular, Edema: is not appreciated, JVD: is not appreciated. 23:35 Respiratory: the patient does not display signs of respiratory distress, Respirations: normal, no use of accessory muscles, no retractions, labored breathing, is not present, Breath sounds: are clear throughout, no decreased breath sounds, no stridor, no wheezing. 23:35 Abdomen/GI: Inspection: abdomen appears normal, Bowel sounds: active, all quadrants, Palpation: soft, in all quadrants, severe abdominal tenderness, in all quadrants, rebound tenderness, is not appreciated, voluntary guarding, is elicited in all quadrants. 23:35 Back: pain, is absent, ROM is normal. 23:35 Skin: no rash present. 23:35 Neuro: Orientation: to person, place \\T\\ time. Mentation: is normal, Motor: moves all fours, strength is normal. 23:45 ECG was reviewed by the Attending Physician. cp Vital Signs: 23:24 BP 144 / 106; Pulse 80; Resp 20 S; Temp 97.7(O); Pulse Ox 97% on R/A; Weight 85.28 kg bb (R); Height 6 ft. 2 in. (187.96 cm) (R); Pain 9/10; 02/11 01:00 BP 134 / 77; Pulse 78; Resp 16; Pulse Ox 98% on R/A; jb4 02:00 BP 127 / 84; Pulse 79; Resp 16; Pulse Ox 93% on R/A; jb4 03:00 BP 131 / 80; Pulse 80; Resp 15; Pulse Ox 100% on 2 lpm NC; jb4 02/10 23:24 Body Mass Index 24.14 (85.28 kg, 187.96 cm) bb MDM: 02/10 23:09 Patient medically screened. cp 23:43 Differential diagnosis: acute myocardial infarction, cholecystitis, Cholelithiasis cp pancreatitis, pneumonia, pneumothorax, pulmonary embolus, stable angina, AAA, appendicitis, bowel obstruction, Ureterolithiasis, urinary tract infection, mesenteric ischemia. 02/11 01:22 Differential diagnosis: cholecystitis, Cholelithiasis, diverticulitis, gastritis, simona gastroesophageal reflux disease, GI Bleed, sympomatic leaking abdominal aortic aneurysm, pancreatitis, Peptic Ulcer Disease, Peritonitis. Data reviewed: vital signs, nurses notes, EMS record, lab test result(s), EKG, radiologic studies, CT scan, plain films, ultrasound. Data interpreted: manager monitoring: rate is 78 beats/min, rhythm is atrial fibrillation, Pulse oximetry: on room air is 98 %. Test interpretation: by ED physician or midlevel provider: ECG, plain radiologic studies. Counseling: I had a detailed discussion with the patient and/or guardian regarding: the historical points, exam findings, and any diagnostic results supporting the discharge/admit diagnosis, lab results. 02/10 23:08 Order name: Basic Metabolic Panel 02/10 23:55 Interpretation: Normal except: K 3.3; GLUC 113; BUN 26; GFR 54. 02/10 23:08 Order name: CBC with Diff; Complete Time: 00:11 02/11 00:12 Interpretation: Normal except: RBC 4.28; HGB 13.2; MCV 94.1; PLT 125. 02/10 23:08 Order name: LFT's 02/11 00:22 Interpretation: Normal except: ALK 168; BILIT 1.9; BILID 1.0. 02/10 23:08 Order name: Magnesium 02/10 23:08 Order name: PT-INR; Complete Time: 23:36 02/10 23:36 Interpretation: Reviewed. 02/10 23:08 Order name: Troponin HS 02/10 23:08 Order name: Lactate; Complete Time: 00:53 02/10 23:42 Order name: Lipase [facility] 02/10 23:56 Order name: COVID-19/FLU A+B (Document "Date of Onset" if Symptomatic) 02/11 01:15 Order name: NT PRO-BNP [facility] 02/11 03:16 Order name: Lactate Sepsis 2 HR Follow-up [facility] 02/11 03:59 Order name: CBC with Automated Diff [facility] 02/10 23:08 Order name: XRAY Chest (1 view) 02/10 23:48 Order name: Angio Aorta For Dissection [facility] 02/10 23:55 Order name: US Abdomen Limited: RUQ/epigastric 02/11 04:04 Order name: Comprehensive Metabolic Panel [facility] 02/11 04:04 Order name: Lipase [facility] 02/11 07:07 Order name: CREATININE WHOLE BLOOD [facility] 02/11 09:16 Order name: Urine Dipstick-Ancillary [facility] 02/11 09:32 Order name: Urinalysis [facility] 02/10 23:08 Order name: EKG; Complete Time: 23:08 cp 02/10 23:08 Order name: Cardiac monitoring; Complete Time: 23:58 cp 02/10 23:08 Order name: EKG - Nurse/Tech; Complete Time: 23:58 cp 02/10 23:08 Order name: IV Saline Lock; Complete Time: 23:24 cp 02/10 23:08 Order name: Labs collected and sent; Complete Time: 23:24 cp 02/10 23:08 Order name: O2 Per Protocol; Complete Time: 23:24 cp 02/10 23:08 Order name: O2 Sat Monitoring; Complete Time: 23:24 cp EC/25 23:45 Rate is 75 beats/min. Rhythm is irregular. QRS interval is prolonged at 116 msec. QT cp interval is normal. T waves are Inverted in lead aVR. Interpreted by me. Reviewed by me. Administered Medications: 23:11 Drug: Dilaudid (HYDROmorphone) 1 mg Route: IVP; Site: right forearm; 02/11 00:00 Follow up: Response: No adverse reaction; [facility] 02/10 23:12 Drug: Zofran (Ondansetron) 4 mg Route: IVP; Site: right forearm; 02/11 00:00 Follow up: Response: No adverse reaction; [facility] 02/10 23:14 Drug: Pepcid (famotidine) 20 mg Route: IVP; Site: right forearm; 02/11 00:00 Follow up: Response: No adverse reaction [facility] 02/10 23:36 Drug: Dilaudid (HYDROmorphone) 1 mg Route: IVP; Site: right antecubital; [facility] 02/11 00:00 Follow up: Response: No adverse reaction; Marked relief of symptoms jb4 01:02 Drug: Dilaudid (HYDROmorphone) 1 mg Route: IVP; Site: right antecubital; jb4 01:30 Follow up: Response: No adverse reaction; Marked relief of symptoms jb4 01:05 Drug: Zosyn (piperacillin-tazobactam) 3.375 grams Route: IVPB; Infused Over: 60 mins; jb4 Site: right antecubital; 02:05 Follow up: Response: No adverse reaction; IV Status: Completed infusion; IV Intake: jb4 100ml Disposition: : Co-signature as Attending Physician, Rivas Chand MD I agree with the assessment and simona plan of care. 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 EDOH EDMS 02/11 01:15 01:07 PROBNP+C.LAB.BRZ ordered. EDOH EDMS :44 01:22 Telemetry/MedSurg (Inpatient) simona anayeli :44 01:22 simona anayeli 12:13 01:44 [facility] ER HOLD anayeli michele 12:13 01:44 ERHOLD- mw dw
--- NOTE | 2022-02-11 01:22 | ER ---
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 Coronavirus screen: At this time, the client does not indicate any symptoms associated with coronavirus-19. Ebola Screen: No symptoms or risks identified at this time. Initial Sepsis Screen: Does the patient meet any 2 criteria? No. Patient's initial sepsis screen is negative. Does the patient have a suspected source of infection? No. Patient's initial sepsis screen is negative. Risk Assessment: Do you want to hurt yourself or someone else? Patient reports no desire to harm self or others. Onset of symptoms was February 10, 2022. 23:24 Method Of Arrival: EMS: [facility] bb 23:24 Acuity: BRODERICK 2 bb Historical: - Allergies: 23:26 No Known Allergies; bb - PMHx: 23:26 Atrial Fib; Hyperlipidemia; Hypertension; hernia; GI bleed; bb - Immunization history:: Adult Immunizations up to date. - Social history:: Smoking status: unknown. Screenin:15 Abuse screen: Denies threats or abuse. Nutritional screening: No deficits noted. jb4 Tuberculosis screening: No symptoms or risk factors identified. Fall Risk None identified. Assessment: 23:15 General: Appears in no apparent distress. uncomfortable, Behavior is calm, cooperative, jb4 appropriate for age. Pain: Complains of pain in abdomen Pain does not radiate. Pain currently is 9 out of 10 on a pain scale. Neuro: Level of Consciousness is awake, alert, obeys commands, Oriented to person, place, time, situation. Cardiovascular: Patient's skin is warm and dry. Respiratory: Airway is patent Respiratory effort is even, unlabored, Respiratory pattern is regular, symmetrical. GI: Abdomen is round distended, Abd is soft X 4 quads Abdomen is tender to palpation X 4 quads. : No signs and/or symptoms were reported regarding the genitourinary system. EENT: No signs and/or symptoms were reported regarding the EENT system. Derm: Skin is intact, Skin is pink, warm \T\ dry. Musculoskeletal: Circulation, motion, and sensation intact. Range of motion: intact in all extremities. 02/11 00:18 Reassessment: Patient appears in no apparent distress at this time. Patient and/or jb4 family updated on plan of care and expected duration. Pain level reassessed. Patient is alert, oriented x 3, equal unlabored respirations, skin warm/dry/pink. 01:18 Reassessment: Patient appears in no apparent distress at this time. Patient and/or jb4 family updated on plan of care and expected duration. Pain level reassessed. Patient is alert, oriented x 3, equal unlabored respirations, skin warm/dry/pink. Patient states feeling better. 02:15 Reassessment: Patient appears in no apparent distress at this time. Patient and/or jb4 family updated on plan of care and expected duration. Pain level reassessed. Patient is alert, oriented x 3, equal unlabored respirations, skin warm/dry/pink. Vital Signs: 02/10 23:24 BP 144 / 106; Pulse 80; Resp 20 S; Temp 97.7(O); Pulse Ox 97% on R/A; Weight 85.28 kg bb (R); Height 6 ft. 2 in. (187.96 cm) (R); Pain 9/10; 02/11 01:00 BP 134 / 77; Pulse 78; Resp 16; Pulse Ox 98% on R/A; jb4 02:00 BP 127 / 84; Pulse 79; Resp 16; Pulse Ox 93% on R/A; jb4 03:00 BP 131 / 80; Pulse 80; Resp 15; Pulse Ox 100% on 2 lpm NC; jb4 02/10 23:24 Body Mass Index 24.14 (85.28 kg, 187.96 cm) ED Course: 02/10 23:05 Patient arrived in ED. mw2 23:05 Rivas Ramirez PA is PHCP. cp 23:05 Initial lab(s) drawn, by me, sent to lab. Inserted saline lock: 18 gauge in right bb forearm, using aseptic technique. Blood collected. 23:06 Rivas Chand MD is Attending Physician. cp 23:15 Patient has correct armband on for positive identification. Bed in low position. Call [facility] light in reach. Side rails up X 1. conveyor monitor on. Pulse ox on. NIBP on. 23:23 Ciaran Tomas RN is Primary Nurse. [facility] 23:26 Triage completed. 23:26 Arm band placed on Patient placed in an exam room, on a stretcher, on pulse oximetry. bb 23:31 XRAY Chest (1 view) In Process Unspecified. EDMS 02/11 00:19 Angio Aorta For Dissection In Process Unspecified. EDMS 00:27 US Abdomen Limited: RUQ/epigastric In Process Unspecified. EDMS 01:18 Kirk Kilgore MD is Hospitalizing Provider. [facility] 02:58 No provider procedures requiring assistance completed. Patient admitted, IV remains in jb place. Administered Medications: 02/10 23:11 Drug: Dilaudid (HYDROmorphone) 1 mg Route: IVP; Site: right forearm; 02/11 00:00 Follow up: Response: No adverse reaction; Marked relief of symptoms [facility] 02/10 23:12 Drug: Zofran (Ondansetron) 4 mg Route: IVP; Site: right forearm; 02/11 00:00 Follow up: Response: No adverse reaction; Marked relief of symptoms [facility] 02/10 23:14 Drug: Pepcid (famotidine) 20 mg Route: IVP; Site: right forearm; 02/11 00:00 Follow up: Response: No adverse reaction [facility] 02/10 23:36 Drug: Dilaudid (HYDROmorphone) 1 mg Route: IVP; Site: right antecubital; [facility] 02/11 00:00 Follow up: Response: No adverse reaction; Marked relief of symptoms jb4 01:02 Drug: Dilaudid (HYDROmorphone) 1 mg Route: IVP; Site: right antecubital; 4 01:30 Follow up: Response: No adverse reaction; Marked relief of symptoms jb4 01:05 Drug: Zosyn (piperacillin-tazobactam) 3.375 grams Route: IVPB; Infused Over: 60 mins; jb4 Site: right antecubital; 02:05 Follow up: Response: No adverse reaction; IV Status: Completed infusion; IV Intake: jb4 100ml Intake: 02:05 IV: 100ml; Total: 100ml. jb4 Outcome: 01:22 Decision to Hospitalize by Provider. [facility] 02:58 Admitted to ER Hold. Please see [facility] for further documentation. jb4 02:58 Condition: stable 02:58 Discharge instructions given to patient, Instructed on the need for admit, Demonstrated understanding of instructions. 13:57 Patient left the ED. traci Signatures: Dispatcher [employer] EDMS Rivas Chand MD MD cha Ballard, Brenda, RN RN Rivas Smith PA PA cp Bryson, James, RN RN jb4 Magdaleno Ayon2 Alla Lopez, RN RN ww
[2022-02-11 01:56] LABS: SARS-COV-2 RT PCR NEGATIVE (NEGATIVE)
--- NOTE | 2022-02-11 02:39 | P.HP ---
Certification for Inpatient Patient admitted to: Observation With expected LOS: <2 Midnights Patient will require the following post-hospital care: None Practitioner: I am a practitioner with admitting privileges, knowledge of patient current condition, hospital course, and medical plan of care. Services: Services provided to patient in accordance with Admission requirements found in Title 42 Section 412.3 of the Code of Federal Regulations <MisaelOsiel Chun - Last Filed: 02/11/22 02:33> Patient History Date of Service: 02/11/22 Reason for admission: Abdominal tenderness History of Present Illness: 71-year-old male with history of atrial fibrillation on chronic anticoagulation therapy, hypertension, hyperlipidemia, right inguinal hernia presents emergency department for abdominal pain and vomiting. Patient reports that a few hours after eating dinner which consisted of a desai tomato sandwich patient began having abdominal pain, epigastric pain. Patient was evaluated in the emergency department his labs were remarkable for mild hypokalemia elevated BNP, mild elevations in the total and direct bili normal AST/ALT/lipase he had a CT dissection protocol which showed no evidence for significant aneurysm or dissection of the thoracic aorta and abdominal aorta minimal atherosclerotic disease of the abdominal aorta cardiomegaly with right atrial enlargement with engorgement of the inferior vena cava and reflux of contrast into the hepatic veins suggesting right ventricular dysfunction with small amount of ascites tracking into the right paracolic gutter pelvis and right inguinal canal. Follow-up ultrasound of the right upper quadrant shows probable cholelithiasis small amount of ascites and gallbladder wall thickening most likely corresponding to ascites. On exam patient did have mild right upper quadrant tenderness he also has a right inguinal hernia which was easily reducible. ED provider wishes to admit under observation for abdominal tenderness, possible right ventricular dysfunction and chronic A. fib on anticoagulation - Past Medical/Surgical History -: Atrial fibrillation on chronic anticoagulation therapy -: Hypertension -: Hyperlipidemia -: GI bleed -: Hernia repair x2 Psychosocial/ Personal History: Patient lives at home with his - Family History Family History: Reviewed- Non-Contributory - Social History Smoking Status: Never smoker Alcohol use: No CD- Drugs: No Caffeine use: Yes Place of Residence: Home <Osiel Douglas - Last Filed: 02/11/22 02:33> Date of Service: 02/11/22 <Kirk Kilgore - Last Filed: 02/11/22 18:51> Allergies No Known Allergies Allergy (Verified 02/05/21 13:47) Home Medications: Atenolol [Tenormin] 100 mg PO DAILY 02/05/21 Azelastine [Astelin 137MCG/Metered [place]] 137 mcg NS BID 02/05/21 Fluticasone [Flovent Hfa 110] 2 sprays IH BIDP PRN 02/05/21 Irbesartan 150 mg PO DAILY 02/05/21 Multivitamin/Iron/Folic Acid [Centrum Adults Tablet] 1 each PO DAILY 02/05/21 Rosuvastatin Calcium [Crestor] 20 mg PO BEDTIME 02/05/21 Vit A/Vit C/Vit E/Zinc/Copper [Eye Multivitamin Tablet] 2 each PO BEDTIME 02/05/21 Apixaban [Eliquis] 5 mg PO BID 02/11/22 Furosemide [Lasix] 20 mg PO DAILY 02/11/22 Potassium Chloride 1 tab PO DAILY 02/11/22 Review of Systems 10-point ROS is otherwise unremarkable Gastrointestinal: Nausea, Vomiting, Abdominal Pain, As per HPI <Osiel Douglas - Last Filed: 02/11/22 02:33> Physical Examination - Physical Exam General: Alert, In no apparent distress, Oriented x3 HEENT: Atraumatic, PERRLA, Mucous membr. moist/pink, EOMI, Sclerae nonicteric Neck: Supple, 2+ carotid pulse no bruit, No LAD, Without JVD or thyroid abnormality Respiratory: Clear to auscultation bilaterally, Normal air movement Cardiovascular: Regular rate/rhythm, Normal S1 S2 Capillary refill: <2 Seconds Gastrointestinal: Normal bowel sounds, Other (Easily reducible right inguinal hernia), Tenderness (Mild right upper quadrant tenderness) Musculoskeletal: No tenderness Integumentary: No rashes Neurological: Normal speech, Normal strength at 5/5 x4 extr, Normal tone, Normal affect - Studies Laboratory Data (last 24 hrs) 02/10/22 23:36: Lipase Cancelled 02/10/22 23:05: PT 18.6 H, INR 1.67 02/10/22 23:05: WBC 5.3, Hgb 13.2 L, Hct 40.3, Plt Count 125 L 02/10/22 23:05: Sodium 141, Potassium 3.3 L, BUN 26 H, Creatinine 1.30, Glucose 113 H, Magnesium 2.2, Total Bilirubin 1.9 H, AST 25, ALT 22, Alkaline Phosphatase 168 H, Lipase 191 <Osiel Douglas - Last Filed: 02/11/22 02:33> - Studies Laboratory Data (last 24 hrs) 02/10/22 23:36: Lipase Cancelled 02/10/22 23:05: PT 18.6 H, INR 1.67 02/10/22 23:05: WBC 5.3, Hgb 13.2 L, Hct 40.3, Plt Count 125 L 02/10/22 23:05: Sodium 141, Potassium 3.3 L, BUN 26 H, Creatinine 1.30, Glucose 113 H, Magnesium 2.2, Total Bilirubin 1.9 H, AST 25, ALT 22, Alkaline Phosphatase 168 H, Lipase 191 <Kirk Kilgore - Last Filed: 02/11/22 18:51> Assessment and Plan - Plan Assessment: Abdominal tenderness, cholelithiasis Cardiomegaly, right atrial enlargement, atrial fibrillation on chronic anticoagulation therapy Hypertension Hyperlipidemia Inguinal hernia Plan: Abdominal tenderness, cholelithiasis: Ultrasound demonstrates probable cholelithiasis, small amount of ascites, gallbladder wall thickening most likely corresponding to ascites, patient with mild right upper quadrant abdominal tenderness on exam. Patient was started on Zosyn and is currently NPO. Will consult general surgery for additional input. AST/ALT/lipase within normal limits total and direct bili mildly elevated. Cardiomegaly, right atrial enlargement, atrial fibrillation on chronic anticoagulation therapy: Cardiology consulted for cardiac clearance in case of possible intervention in regards to gallbladder in addition to presence of cardiomegaly, right atrial enlargement, vascular engorgement of the inferior vena cava and reflux of contrast into hepatic veins suggesting right ventricular dysfunction. Patient with known history of atrial fibrillation and is currently on Eliquis, will be holding Eliquis for the time being given possibility of need for surgical intervention regards to the gallbladder. Appreciate further input from cardiology, echocardiogram ordered, continue to medications when appropriate. Hypertension: Hold p.o. meds at this time restart when appropriate Hyperlipidemia: Hold p.o. meds at this time restart when appropriate Inguinal hernia: Easily reducible, reduced by ED provider reports he had attempted surgical intervention approximately 1 year ago which failed. DVT PPX: SCD Code status: Full Discharge Plan: Home Plan to discharge in: 24 Hours - Advance Directives Does patient have a Living Will: No Does patient have a Durable POA for Healthcare: No - Code Status/Comfort Care Code Status Assessed: Yes (Full code) Critical Care: No Time Spent Managing Pts Care (In Minutes): 55 <Osiel Douglas - Last Filed: 02/11/22 02:33> - Plan Patient seen and examined on rounds this morning. Agree with plan of care as noted above. Pain improved with pain medication. no nausea/vomiting. cardiology consulted for clearance. surgery tomorrow since he took eliquis yesterday <Kirk Kilgore - Last Filed: 02/11/22 18:51>
[2022-02-11] MEDS ORDERED: ONDANSETRON 4 MG/2 ML VIAL IV PRN (03:18)
[2022-02-11 03:53] LABS: Absolute Lymphocytes (CBC) 0.8 K/uL (0.7-4.9); Hematocrit 38.8 % (39.6-49.0); Lymphocytes % 12.2 % (15.3-44.8); MPV 10.5 fL (7.6-11.3); RBC Red Blood Cell Count 4.09 M/uL (4.33-5.43)
[2022-02-11 04:00] VITALS: BMI 24.1
[2022-02-11 04:03] LABS: Potassium 3.7 mmol/L (3.5-5.1); Protein, Total 7.1 g/dL (6.4-8.2)
[2022-02-11] MEDS ORDERED: MORPHINE 2 MG/ML SYR ONE (05:20)
[2022-02-11] MEDS: MORPHINE 2 MG/ML SYR IV PRN ×2 (05:20→18:25)
[2022-02-11] MEDS: PIPER TAZO 3.375 GM in NA CHLORIDE 0.9% 100 ML IV SCH ×2 (09:00→16:02)
[2022-02-11 09:16] LABS: Urine Blood Negative (Negative); Urine Glucose Negative (Negative); Urine Protein 1+ (Negative); Urine pH 5.5 (5.0-7.0)
[2022-02-11 09:32] LABS: Urine Appearance Clear (Clear); Urine Bilirubin Negative (Negative); Urine Blood Negative (Negative); Urine Color Yellow (Yellow); Urine Glucose Negative (Negative); Urine Protein 1+ (Negative); Urine pH 5.5 (5.0-7.0)
[2022-02-11 09:33] LABS: Urine Bacteria NONE SEEN /HPF (NONE SEEN); Urine Microscopic Reflex ORDER UMIC; Urine RBC NONE SEEN /HPF (NONE SEEN)
--- NOTE | 2022-02-11 10:24 | RAD REPORT ---
EXAM DESCRIPTION: RAD - Chest Single View - 02/10/2022 11:29 pm CLINICAL HISTORY: Abdominal distention. COMPARISON: None. TECHNIQUE: AP Chest. FINDINGS: There is moderate globular cardiac enlargement. Normal cardiothymic contours. Normal pulmo nary vascularity. Lungs and pleural spaces are clear. No pneumothorax. Normal soft tissues and bones. IMPRESSION: Globular cardiomegaly may indicate pericardial effusion. Electronically signed by: Adelaide Morrison DO 02/10/2022 11:42 PM CDT Due to temporary technical issues with the PACS/Fluency reporting system, reports are being signed by the in house radiologist without review as a courtesy to ensure prompt reporting. The interpreting r adiologist is fully responsible for the content of the report.
--- NOTE | 2022-02-11 10:25 | RAD REPORT ---
EXAM DESCRIPTION: CT - Angio Aorta For Dissection - 02/11/2022 6:53 am CLINICAL HISTORY: 71 years, Male, CHEST PAIN COMPARISON: 04/12/2021. TECHNIQUE: Multiple transaxial tomograms from the thoracic and abdominal aorta from the lung apex to the ischial tuberosities performed before and after the administration of large bolus of IV contrast for complete opacification of the thoracic, abdominal aorta and iliac arteries utilizing 3 mm slice thickness at 3 mm interval reconstruction. 2-D and 3-D multiplanar reformats, volume rendering technique and maximum intensity projection images were generated and reviewed. This exam was performed according to our departmental dose-optimization protocol, which includes auto mated exposure control, adjustment of the mA and/or kV according to patient size and/or use of iterat daljit reconstruction technique. FINDINGS: Thoracic aorta: The thoracic aorta demonstrate to be within normal limits. No evidence for significant aneurysm and/o r dissection allowing for the motion artifact along the aortic root, ascending thoracic aorta measure s 3.4 x 2.3 cm on image 42, aortic arch measured 3.0 cm on image 29, the descending thoracic aorta me asured 2.4 x 2.4 cm on image 66. There is normal branching pattern of the aortic arch. There is anato mical variants of origin of the left vertebral artery from the aortic arch. Abdominal aorta: Abdominal aorta demonstrate to be within normal limits. There is no evidence for dissection and/or an eurysm. Minimal atheromatous plaque formation extending into the aortic bifurcation. The proximal abd ominal aorta measured 2.5 x 2.5 cm on image 104, the mid abdominal aorta measured 2 x 2 cm on image 1 16, the distal abdominal aorta measured 2.1 x 2.0 cm on image 135. Both iliac arteries demonstrate to be patent with no evidence for significant stenosis and/or aneurysm. Chest: The lung parenchyma demonstrate to be within normal limits. No significant pulmonary nodules a nd/or masses. The trachea mainstem bronchus demonstrate to be unremarkable. There is no pleural/or pericardial effu sions. There is cardiomegaly. There are coronary artery calcifications. There is right atrial enlargement wi th engorged inferior vena cava and reflux of contrast into the hepatic veins suggesting right ventric ular dysfunction. Minimal coronary artery calcifications. There is no significant mediastinal and/or hilar lymphadenopathy. The axillary regions demonstrate to be clear. The bone windows demonstrate well-circumscribed sclerotic lesion within the posterior vert ebral body of 6 on image 36, perhaps corresponding to a bone island. Abdomen and pelvis: The liver demonstrated the presence of a lateral segment left hepatic lobe cyst m easuring 1 cm on image 103. There is small amount of ascites tracking along the right paracolic gutte r, pelvis and right inguinal canal/spermatic cord/left scrotal sac. The gallbladder, spleen, adrenal glands, pancreas demonstrate to be unremarkable. The kidneys demonstrate normal uptake of contrast media. There is no evidence for nephrolithiasis/or hydronephrosis. Grossly the unopacified stomach, small bowel and large bowel demonstrate to be within normal limits. There is diverticulosis within the sigmoid colon. The appendix is unremarkable. The urinary bladder is normal. The prostate gland is unremarkable. There is no retroperitoneal lymp hadenopathy. The bone windows demonstrate to be within normal limits. No evidence for compression def ormities. IMPRESSION: No evidence for significant aneurysm and/or dissection of the thoracic aorta, and abdomi nal aorta. Minimal atherosclerotic disease abdominal aorta. Cardiomegaly with right atrial enlargement with engorged inferior vena cava and reflux of contrast in to the hepatic veins suggesting right ventricular dysfunction. Small amount of ascites tracking along the right paracolic gutter, pelvis and right inguinal canal/sp ermatic cord/left scrotal sac. Sigmoid diverticulosis. Electronically signed by: Georgi Bhatt MD 02/11/2022 12:53 AM CDT Due to temporary technical issues with the PACS/Fluency reporting system, reports are being signed by the in house radiologist without review as a courtesy to ensure prompt reporting. The interpreting r adiologist is fully responsible for the content of the report.
--- NOTE | 2022-02-11 10:27 | RAD REPORT ---
EXAM DESCRIPTION: US - Abdomen Exam Limited - 02/11/2022 1:05 am CLINICAL HISTORY: 71 years, Male, ABD PAIN COMPARISON: None. TECHNIQUE: Utilizing a curved array transducer, real-time ultrasound evaluation of the abdominal vis cera was performed. Color Doppler imaging was used to assess vascular flow. FINDINGS: The, pancreas, aorta, kidney were not imaged and/or evaluated. The gallbladder demonstrate to be mildly distended. Tiny echogenic structure with posterior shadowing is identified corresponding to perhaps cholelithiasis. There is gallbladder wall thickening. There i s small amount of ascites. The common bile duct measures 3.9 mm. there is negative ultrasonographic M urphy sign. No intra or extrahepatic biliary duct dilatation was identified. IMPRESSION: PROBABLE CHOLELITHIASIS. SMALL AMOUNT OF ASCITES. GALLBLADDER WALL THICKENING MOST LIKELY CORRESPONDING TO ASCITES. Electronically signed by: Georgi Bhatt MD 02/11/2022 12:40 AM CDT Due to temporary technical issues with the PACS/Fluency reporting system, reports are being signed by the in house radiologist without review as a courtesy to ensure prompt reporting. The interpreting r adiologist is fully responsible for the content of the report.
--- NOTE | 2022-02-11 10:46 | P.CNS ---
Date of Consult: 02/11/22 Reason for consult: Abdominal pain History of present illness: Patient is a 71-year-old gentleman who presents to the emergency room with acute onset of epigastric abdominal pain associated with nausea and vomiting. Patient had a desai and lettuce sandwich prior to this episode. No diarrhea or constipation. No blood in the stool, dysuria or hematuria. No sore throat, runny nose, cough, headaches, dizziness, no chest pain and no fever or chills. Patient had a right inguinal hernia which was reduced by the ER physician. Review of systems: Otherwise unremarkable Past medical history: Atrial fibrillation on anticoagulationpatient last took Eliquis yesterday late afternoon. Hypertension and hyperlipidemia. Past surgical history: Right inguinal hernia repair and umbilical hernia repair Allergies: None Social history: Denies tobacco or alcohol use Family history: Noncontributory Vital signs: Vital signs stable afebrile Physical exam: Head and neck exam: Cranial nerves II through XII grossly within normal limits, no neck masses, no JVD, throat clear and neck supple Chest: Clear Heart: S1-S2 Abdomen: Soft, nondistended, positive bowel sounds, positive tenderness in the right upper quadrant with no rebound, rigidity or guarding : Patient has a reducible right inguinal hernia Extremity: Neurovascular intact and nontender Neuro: Nonfocal Diagnostic data: CT and ultrasound reviewedshowing ascites on the right side of the abdomen with hepatic venous congestion and cholelithiasis with fluid around the gallbladder seen on the ultrasound. Laboratory data reviewed alk phos and total bili are slightly elevated. AST and ALT are within normal limits. Assessment: Acute cholecystitis and cholelithiasis and the patient on anticoagulation for atrial fibrillation Plan/recommendation: Patient needs cardiac evaluation and clearance. Once that is accomplished, we will hold the Eliquis and proceed with laparoscopic cholecystectomy, possible open. As patient took his Eliquis yesterday late afternoon, we will schedule the patient for surgery tentatively for tomorrow morning. Patient understands risk, benefits, alternatives and agrees to procedure. Case discussed with Dr. Kilgore and Dr. Sanches. CC: Dr. Kilgore's office
--- NOTE | 2022-02-11 16:51 | CON ---
Date of Consultation: 02/11/2022 Reason For Consultation: Right-sided congestive heart failure and cardiac clearance for cholecystect fermin by Dr. Lieberman. History Of Present Illness: Mr. Rojo is very well known to me. He has had a history of right-inocente ed congestive heart failure that has been stable. He has had a history of paroxysmal atrial fibrilla tion, hypertension, dyslipidemia, and GI bleed. Came in with cholecystitis. Plan for surgery. No c ardiac symptoms. Past Medical History: As stated above. Allergies: NONE. Review of Systems: Negative. Social History: Negative. Family History: Noncontributory. Medications: At home include atenolol, Crestor, hydrochlorothiazide, irbesartan, inhalers. He is ta [facility] now. Physical Examination: Vital Signs: Stable. Afebrile. HEENT: Negative. Neck: Supple with no bruit. Chest: Clear. Cardiac: Revealed atrial fibrillation. Abdomen: Positive for cholecystitis. EXTREMITIES: Revealed no clubbing, cyanosis, or edema. Imaging: Echocardiogram which was done while I was in the room showed a normal ejection fraction, no rmal right ventricular ejection fraction, normal right ventricular systolic pressure, dilated right a trium. Impression And Plan: Stable right-sided congestive heart failure with normal ejection fraction, norm al right ventricular systolic pressure. No cardiac symptoms. No physical findings of congestive hea rt failure. I would hold his Eliquis. Plan for surgery tomorrow. The patient is at low risk for aviles rgery from a perioperative mortality standpoint. Regarding his atrial fibrillation, we will restart his Eliquis postoperatively. His hypertension is controlled. His dyslipidemia is controlled. I estephania l continue to follow along. DAVID/LEFTYL Voice ID: [id number] Report ID: [id number]
[2022-02-11] MEDS ORDERED: HYDROMORPHONE HCL 0.5 MG/0.5 ML INJ IV ONE (20:30)
[2022-02-12] MEDS: PIPER TAZO 3.375 GM in NA CHLORIDE 0.9% 100 ML IV SCH ×3 (00:56→17:44)
[2022-02-12] MEDS: MORPHINE 2 MG/ML SYR IV PRN ×3 (01:04→10:01)
--- NOTE | 2022-02-12 06:24 | P.PN ---
Date of Service: 02/12/22 Subjective: no acute events overnight with abdominal pain, but medication helps RUQ tenderness and pain at his inguinal hernia as well no nausea/vomiting ROS: 10 point ROS as noted above, otherwise negative Physical exam GEN: Alert, oriented, NAD HEENT: Normal conjunctiva, sclera anicteric CV: Regular rate and rhythm, no edema Pulm: Nonlabored respirations on room air ABD: Soft, moderate RUQ tenderness, reducible right inguinal hernia Neuro: Normal speech, normal affect Problem List Acute cholecystitis, with cholelithiasis Cardiomegaly, right atrial enlargement, atrial fibrillation on chronic anticoagulation therapy Hypertension Hyperlipidemia Inguinal hernia General surgery consulted, plan to go to OR today for lap argelia continue antibiotics, NPO for now Cardiology consulted and cleared for surgery corina held for surgery, will restart post-op after discussion with general surgery restart home meds as appropriate once taking PO VTE: SCDs Code: full Dispo: home, likely tomorrow, pending surgery / findings Time Spent Managing Pts Care (In Minutes): 35
[2022-02-12 06:25] LABS: Hematocrit 40.4 % (39.6-49.0); Lymphocytes % 37.1 % (15.3-44.8); MPV 9.7 fL (7.6-11.3); RBC Red Blood Cell Count 4.26 M/uL (4.33-5.43)
[2022-02-12 06:42] LABS: Albumin 4.1 g/dL (3.4-5.0); Bilirubin Total 1.9 mg/dL (0.2-1.0); Potassium 3.2 mmol/L (3.5-5.1); Protein, Total 7.4 g/dL (6.4-8.2)
[2022-02-12] MEDS ORDERED: NA CHLORIDE 0.9% 1,000 ML IV SCH (08:00)
[2022-02-12] MEDS ORDERED: FENTANYL CITR 100 MCG/2 ML ONE (11:43)
[2022-02-12] MEDS ORDERED: propofoL 200 MG/20 ML VIAL IV ONE (11:44)
[2022-02-12] MEDS ORDERED: MIDAZOLAM HCL 2 MG/2 ML INJ ONE (11:44)
[2022-02-12] MEDS ORDERED: ONDANSETRON 4 MG/2 ML VIAL ONE ×2 (11:45→14:32)
[2022-02-12] MEDS ORDERED: LIDOCAINE 1% MPF 5 ML VIAL ONE (11:45)
[2022-02-12] MEDS ORDERED: ROCURONIUM 50 MG/5 ML VIAL IV ONE (11:47)
--- NOTE | 2022-02-12 13:00 | EKG ---
Test Date: 2022-02-10 Test Time: 23:41:50 Payloader Operator: LIV MEASUREMENT RESULTS: Intervals: Rate: 75 [place]: QRSD: 116 QT: 448 QTc: 500 [place]: P: WA: QRS: 52 T: -10 INTERPRETIVE STATEMENTS: Atrial fibrillation Abnormal QRS-T angle, consider primary T wave abnormality Prolonged QT Abnormal ECG Compared to ECG 04/12/2021 20:55:57 T-wave abnormality now present Right-axis deviation no longer present Myocardial infarct finding no longer present ST (T wave) deviation no longer present Possible ischemia no longer present Electronically Signed On 02-12-22 12:57:42 CDT by Paddy Sanz
[2022-02-12] MEDS ORDERED: BUPIVACAINE 0.5% PF 10 ML VIAL ONE (13:11)
--- NOTE | 2022-02-12 13:11 | ECHO ---
HEIGHT: 6 ft 2 in WEIGHT: 188 lb 0 oz DATE OF STUDY: 02/11/[address]: Osiel Douglas NP 2-DIMENSIONAL: YES M.MODE: YES DOPPLER: YES COLOR FLOW: YES TDS: NO PORTABLE: YES DEFINITY: NO BUBBLE STUDY: NO DIAGNOSIS: ATRIAL FIBRILLATION, SUSPECT RIGHT VENTRICULAR DYSFUNCTION CARDIAC HISTORY: CATHERIZATION: NO SURGERY: NO PROSTHETIC VALVE: NO PACEMAKER: NO MEASUREMENTS (cm) DIASTOLIC (NORMALS) SYSTOLIC (NORMALS) IVSd 1.1 (0.6-1.2) LA Diam 4.3 (1.9-4.0) LVEF 50% LVIDd 4.4 (3.5-5.7) LVIDs 3.3 (2.0-3.5) %FS 25% LVPWd 1.1 (0.6-1.2) Ao Diam 3.3 (2.0-3.7) 2 DIMENSIONAL ASSESSMENT: RIGHT ATRIUM: DILATED LEFT ATRIUM: DILATED RIGHT VENTRICLE: NORMAL LEFT VENTRICLE: NORMAL TRICUSPID VALVE: NORMAL MITRAL VALVE: NORMAL PULMONIC VALVE: NORMAL AORTIC VALVE: NORMAL PERICARDIAL EFFUSION: NONE AORTIC ROOT: NORMAL LEFT VENTRICULAR WALL MOTION: NORMAL LEFT VENTRICLE AND RIGHT VENTRICULAR EJECTION FRACTION. DOPPLER/COLOR FLOW: MILD TO MODERATE MITRAL AND TRICUSPID REGURGITATION. NORMAL RIGHT VENTRICULAR SYSTOLIC PRESSURE. COMMENTS: NORMAL LEFT VENTRICULAR SIZE AND FUNCTION. NORMAL RIGHT VENTRICULAR EJECTION FRACTION. LEFT ATRIAL ENLAREGEMENT. RIGHT ATRIAL ENLARGEMENT. MILD TO MODERATE MITRAL AND TRICUSPID REGURGITATION. NORMAL RIGHT VENTRICULAR SYSTOLIC PRESSURE. TECHNOLOGIST: Malik RINCON
[2022-02-12] MEDS ORDERED: Ringers Lactate 1,000 ML IV ONE (13:20)
[2022-02-12] MEDS ORDERED: BUPIVACAINE 0.5% PF 10 ML VIAL SQ ONE (13:30)
[2022-02-12] MEDS ORDERED: KETOROLAC 30 MG/ML INJ ONE (15:24)
[2022-02-12] MEDS ORDERED: NEOSTIGMINE 1 MG/ML -5 ML ONE (15:25)
[2022-02-12] MEDS ORDERED: GLYCOPYRROLATE 0.2 MG/ML SYR ONE (15:25)
--- NOTE | 2022-02-12 15:37 | P.OP ---
Date of Service: 02/12/22 Preop diagnosis: Acute cholecystitis and cholelithiasis Postop diagnosis: Same Procedure performed: Laparoscopic cholecystectomy Surgeon: Los Lieberman MD Manager Student Services: Elsie DOZIER Estimated blood loss: Minimal Specimen: Gallbladder Findings: As above Anesthesia: General Complications: None Drains: None Fluids and blood products: Nonapplicable Disposition: Recovery room Operative note: Patient brought to the OR and placed in supine position. General anesthesia begun and patient prepped and draped in usual sterile f ashion. Marcaine 0.5% infiltrated locally. 15 blade used to make a 1 cm supraumbilical midline incision. Subcutaneous tissue divided and fascia identified and divided. #1 Vicryl stay suture placed. Peritoneal cavity entered with sharp and blunt dissection. Pneumoperitoneum established after 12 mm trocar was placed into the peritoneal cavity under direct vision. 3 5 mm trochars were placed, one in the epigastric region just to the right of midline and 2 in the right subcostal region. Laparoscopy revealed bilious ascitic fluid in the right upper quadrant which was aspirated approximately 700 cc total. The ascites was in the right upper quadrant right lower quadrant and pelvis. Gallbladder was distended. This was aspirated. Then fundus was retracted superiorly. Infundibulum was identified and retracted inferolaterally. Gallbladder wall was thickened. Cystic duct and cystic artery were clearly identified with blunt dissection. Clips were placed and both structures divided. Cautery was used to remove the gallbladder from the liver bed. Patient had evidence of chronic passive congestion of the liver. Care was taken to avoid bleeding. Gallbladder was retrieved through the umbilicus via Endo Catch bag. Right upper quadrant was irrigated, efluent was clear and there was no evidence of bleeding or bile leakage appreciated. Surgicel was placed in the gallbladder fossa as a preventive measure. All trochars were removed under direct vision. Stay sutures were tied to each other to reapproximate the fascial defect. Subcutaneous wounds irrigated and bleeding controlled with cautery. 3-0 chromic used to approximate subcutaneous tissue. Nomi to close skin. Sterile dressing applied and patient awakened. Patient taken to recovery room in good general condition. CC: Dr. Kilgore's office
[2022-02-12] MEDS ORDERED: ONDANSETRON 4 MG/2 ML VIAL IV PRN (15:48)
[2022-02-12] MEDS: MEPERIDINE HCL 25 MG/ML SYR ONE ×2 (16:05→16:10)
[2022-02-12] MEDS: HYDROCODONE/APAP 7.5/325 MG TAB PO PRN (17:53)
[2022-02-12] MEDS ORDERED: ENOXAPARIN 30 MG/0.3 ML SQ ONE (21:00)
[2022-02-12] MEDS: HYDROMORPHONE HCL 1 MG/ML INJ IV PRN (23:45)
--- NOTE | 2022-02-12 23:51 | PN ---
Date of Progress Note: 02/12/2022 Mr. Rojo was seen for history of right-sided failure, cardiac clearance for cholecystectomy. He h ad an echocardiogram, which showed normal right ventricular ejection fraction with normal right ventr icular systolic pressure and dilated right atrium. The patient had no cardiac symptoms. Today, he u nderwent a cholecystectomy without any hemodynamic compromise. He is in atrial fibrillation at rate of 94. He is on antibiotics at this point. We need to resume his Eliquis as soon as possible as wel l as atenolol, irbesartan, and Crestor. I will discuss the case with admitting physician. DAVID/JUAN Voice ID: [id number] Report ID: [id number]
[2022-02-13] MEDS: PIPER TAZO 3.375 GM in NA CHLORIDE 0.9% 100 ML IV SCH ×3 (00:03→16:44)
[2022-02-13 05:28] LABS: Absolute Lymphocytes (CBC) 0.3 K/uL (0.7-4.9); Hematocrit 35.1 % (39.6-49.0); Lymphocytes % 4.9 % (15.3-44.8); MPV 9.2 fL (7.6-11.3)
[2022-02-13 05:55] LABS: ALT/SGPT 29 U/L (12-78); AST/SGOT 48 U/L (15-37); Albumin 3.3 g/dL (3.4-5.0); Alkaline Phosphatase 124 U/L (45-117); BUN Blood Urea Nitrogen 13 mg/dL (7-18); Bicarbonate 27 mmol/L (21-32); Bilirubin Total 2.2 mg/dL (0.2-1.0); Glucose Level 97 mg/dL (74-106); Lipase 62 U/L (73-393); Potassium 3.6 mmol/L (3.5-5.1); Protein, Total 5.8 g/dL (6.4-8.2); Sodium Level 139 mmol/L (136-145)
--- NOTE | 2022-02-13 06:19 | P.PN ---
Date of Service: 02/13/22 Subjective: abdominal discomfort with movement, no nausea, +flatus ROS: 10 point ROS as noted above, otherwise negative Physical exam GEN: Alert, oriented, intermittent discomfort with movement HEENT: Normal conjunctiva, sclera anicteric CV: irregularly irregular rhythm, sligthly tachycardic, no edema Pulm: Nonlabored respirations on room air ABD: Soft, mild tenderness along surgical incisions, slight blood-tinged dressing over incisions Neuro: Normal speech, normal affect Problem List Acute cholecystitis, with cholelithiasis s/p cholecystectomy Cardiomegaly, right atrial enlargement, atrial fibrillation on chronic anti coagulation therapy Hypertension Hyperlipidemia Inguinal hernia s/p lap argelia yesterday advance diet, pain meds as needed discussed with general surgery, ok to restart eliquis this morning restart home afib medications VTE: eliquis Code: full Dispo: home, within 24hrs Time Spent Managing Pts Care (In Minutes): 35
--- NOTE | 2022-02-13 06:46 | P.PN ---
Date of Service: 02/13/22 Subjective: Patient is awake and alert. Patient is complaining of minimal incisional pain. No nausea or vomiting has occurred. Patient tolerated liquids last night. Objective: Vitals are stable and he is afebrile. Laboratory data reviewed. Abdomen: Soft, nondistended, nontender and positive bowel sounds. Dressing is clean and dry with minimal serosanguineous drainage Assessment: Status post lap argelia Plan: Advance diet as tolerated and begin anticoagulation today. Patient can start his Eliquis today. If cleared by the medical service, patient can be discharged home. Discharge instructions given. Patient can follow-up with me in my office in 1 week. CC:
--- NOTE | 2022-02-13 09:04 | RAD REPORT ---
EXAM DESCRIPTION: Fatimah Single View02/13/2022 8:54 am CLINICAL HISTORY: Fever COMPARISON: February 10, 2022 FINDINGS: The lungs appear clear of acute infiltrate. The heart is moderately to markedly enlarged IMPRESSION: No acute abnormalities displayed
[2022-02-13] MEDS: HYDROCODONE/APAP 7.5/325 MG TAB PO PRN (09:19)
[2022-02-13] MEDS: APIXABAN 5 MG TABLET PO SCH ×2 (09:20→21:24)
[2022-02-13] MEDS: atenoloL 50 MG TAB PO SCH (09:20)
[2022-02-13 10:15] LABS: Blood Morphology Comment NOTED (NOT SEEN); Hypochromasia 1+; Platelet Estimate DECR
[2022-02-13] MEDS: HYDROMORPHONE HCL 1 MG/ML INJ IV PRN (11:09)
[2022-02-13] MEDS ORDERED: NA CHLORIDE 0.9% 500 ML IV ONE (14:03)
[2022-02-13 17:52] LABS: Hematocrit 35.3 % (39.6-49.0); MPV 9.6 fL (7.6-11.3); RBC Red Blood Cell Count 3.74 M/uL (4.33-5.43)
[2022-02-13] MEDS: NA CHLORIDE 0.9% 1,000 ML IV SCH (18:15)
[2022-02-13 19:00] LABS: Albumin 3.3 g/dL (3.4-5.0); Bilirubin Total 2.4 mg/dL (0.2-1.0); Potassium 3.7 mmol/L (3.5-5.1); Protein, Total 6.1 g/dL (6.4-8.2)
[2022-02-14] MEDS: PIPER TAZO 3.375 GM in NA CHLORIDE 0.9% 100 ML IV SCH ×2 (00:57→10:31)
[2022-02-14] MEDS: HYDROMORPHONE HCL 1 MG/ML INJ IV PRN (00:59)
[2022-02-14] MEDS: atenoloL 50 MG TAB PO SCH ×2 (06:00→10:46)
[2022-02-14 06:01] LABS: Absolute Lymphocytes (CBC) 0.9 K/uL (0.7-4.9); Hematocrit 28.5 % (39.6-49.0); Lymphocytes % 16.4 % (15.3-44.8); MPV 9.7 fL (7.6-11.3); RBC Red Blood Cell Count 3.04 M/uL (4.33-5.43)
[2022-02-14 06:25] LABS: ALT/SGPT 28 U/L (12-78); AST/SGOT 37 U/L (15-37); Albumin 2.8 g/dL (3.4-5.0); Alkaline Phosphatase 105 U/L (45-117); BUN Blood Urea Nitrogen 12 mg/dL (7-18); Bicarbonate 26 mmol/L (21-32); Bilirubin Total 2.5 mg/dL (0.2-1.0); Glucose Level 94 mg/dL (74-106); Magnesium 1.9 mg/dL (1.8-2.4); Potassium 3.6 mmol/L (3.5-5.1); Protein, Total 5.3 g/dL (6.4-8.2); Sodium Level 138 mmol/L (136-145)
[2022-02-14] MEDS: NA CHLORIDE 0.9% 1,000 ML IV SCH (07:20)
[2022-02-14 08:22] VITALS: O2SAT 95
[2022-02-14] MEDS ORDERED: POTASSIUM 25 MEQ EFFERV TAB PO ONE (09:00)
--- NOTE | 2022-02-14 09:08 | P.PN ---
Date of Service: 02/14/22 Subjective: Patient is awake and alert. Patient is feeling much better with regards to abdominal pain. No nausea or vomiting has occurred. Patient is tolerating diet. Objective: Vitals are stable and he is afebrile. Laboratory data reviewed. H&H is slightly lower and total bili is 2.5. Abdomen: Soft, minimal distention, nontender and positive bowel sounds. Dressing is clean and dry with minimal serosanguineous drainage Assessment: Status post lap argelia Plan: Patient is clinically better. Discussed the case with Dr. Kilgore. We will check the H&H and direct bili at noon today. If labs are stable and patient is clinically doing well then patient can be discharged. CC:
[2022-02-14] MEDS: APIXABAN 5 MG TABLET PO SCH (10:31)
[2022-02-14 12:35] LABS: Hematocrit 29.4 % (39.6-49.0); MPV 9.2 fL (7.6-11.3); RBC Red Blood Cell Count 3.14 M/uL (4.33-5.43)
[2022-02-14 12:50] VITALS: BP 106/71; TEMP 99.3
--- NOTE | 2022-02-14 20:44 | P.DS ---
Admission Date: 02/12/22 Discharge Date: 02/14/22 Disposition: ROUTINE DISCHARGE Discharge Condition: GOOD Reason for Admission: Abdominal tenderness Consultations: General Surgery - Dr. Lieberman Procedures: Problem List Acute cholecystitis, with cholelithiasis s/p cholecystectomy Cardiomegaly, right atrial enlargement, atrial fibrillation on chronic anticoagulation therapy Hypertension Hyperlipidemia Inguinal hernia Brief History of Present Illness: 71yo M, PMH: Afib, HTN, HLD, R inguinal hernia. Presented to ED with abdominal pain and vomiting that began the night prior to admission. Workup in ED concerning for acute cholecystitis with cholelithiasis and RUQ tenderness on exam. Hospital Course: General Surgery was consulted and patient underwent lap cholecystectomy. Post-operatively patient had low grade temperature to 100.2 felt secondary to atelectasis. He also had low-normal blood pressure and was further monitored. He was empirically covered with Zosyn. Labs remained stable, and patient was feeling much better and tolerating a soft diet on day of discharge. He was deemed stable for discharge home. General surgery recommended no antibiotics needed on discharge. Follow up with General surgery next week. Vital Signs/Physical Exam: Temp Pulse Resp BP Pulse Ox 99.3 F 88 18 106/71 95 02/14/22 12:00 02/14/22 12:00 02/14/22 12:00 02/14/22 12:00 02/14/22 12:00 Physical exam GEN: Alert, oriented, NAD HEENT: Normal conjunctiva, sclera anicteric CV: irregularly irregular rhythm, no edema Pulm: Nonlabored respirations on room air ABD: Soft, mild tenderness along surgical incisions Neuro: Normal speech, normal affect Laboratory Data at Discharge: WBC 6.1 K/uL (4.3-10.9) 02/14/22 12:19 Hgb 9.9 g/dL (13.6-17.9) L 02/14/22 12:19 Hct 29.4 % (39.6-49.0) L 02/14/22 12:19 Plt Count 111 K/uL (152-406) L D 02/14/22 12:19 PT 18.6 SECONDS (9.5-12.5) H 02/10/22 23:05 INR 1.67 02/10/22 23:05 Sodium 138 mmol/L (136-145) 02/14/22 05:43 Potassium 3.6 mmol/L (3.5-5.1) 02/14/22 05:43 BUN 12 mg/dL (7-18) 02/14/22 05:43 Creatinine 0.76 mg/dL (0.55-1.3) 02/14/22 05:43 Glucose 94 mg/dL (74-106) 02/14/22 05:43 Magnesium 1.9 mg/dL (1.8-2.4) 02/14/22 05:43 Total Bilirubin 2.5 mg/dL (0.2-1.0) H 02/14/22 05:43 AST 37 U/L (15-37) 02/14/22 05:43 ALT 28 U/L (12-78) 02/14/22 05:43 Alkaline Phosphatase 105 U/L (45-117) 02/14/22 05:43 Lipase 62 U/L (73-393) L 02/13/22 05:12 Home Medications: Atenolol [Tenormin] 100 mg PO DAILY 02/05/21 Azelastine [Astelin 137MCG/Metered Shepherd*] 137 mcg NS BID 02/05/21 Fluticasone [Flovent Hfa 110*] 2 sprays IH BIDP PRN 02/05/21 Irbesartan 150 mg PO DAILY 02/05/21 Multivitamin/Iron/Folic Acid [Centrum Adults Tablet] 1 each PO DAILY 02/05/21 Rosuvastatin Calcium [Crestor] 20 mg PO BEDTIME 02/05/21 Vit A/Vit C/Vit E/Zinc/Copper [Eye Multivitamin Tablet] 2 each PO BEDTIME 02/05/21 Apixaban [Eliquis] 5 mg PO BID 02/11/22 Furosemide [Lasix] 20 mg PO DAILY 02/11/22 Potassium Chloride 1 tab PO DAILY 02/11/22 Hydrocodone 5/APAP 325 [[place] 5/325] 1 tab PO Q8H PRN #15 tab 02/14/22 New Medications: Hydrocodone 5/APAP 325 [[place] 5/325] 1 tab PO Q8H PRN #15 tab PRN Reason: Pain Physician Discharge Instructions: Remove dressing in a.m. and shower Incentive spirometry as ordered Band-Aid or dry gauze to wound daily Diet: AHA Activity: No lifting more than 10 lbs Followup: Los Lieberman MD [ACTIVE - CAN ADMIT] - 1 Week (call to schedule appointment) Time spent managing pt's care (in minutes): 45
== END 2022-02-14 15:35 | disposition home or self-care (01) | DRG 418 ==
LOC: ER 23:03 → ERHOLD 02-11 02:30 → 2ND 02-11 13:23 → OBSVTOIN 02-12 13:07
PROVIDERS: ADMIT Hospitalist; ATTEND Hospitalist
PROC: 0FT44ZZ Resection of Gallbladder, Percutaneous Endoscopic Approach (ICD-10-PCS; principal; 2022-02-12 11:45)
DX: K80.00 Calculus of gallbladder with acute cholecystitis without obstruction (principal); J98.11 Atelectasis; J95.89 Other postprocedural complications and disorders of respiratory system, not elsewhere classified; I50.30 Unspecified diastolic (congestive) heart failure; I48.91 Unspecified atrial fibrillation; K40.90 Unilateral inguinal hernia, without obstruction or gangrene, not specified as recurrent; E78.5 Hyperlipidemia, unspecified; I11.0 Hypertensive heart disease with heart failure; Z79.01 Long term (current) use of anticoagulants; Z20.822 Contact with and (suspected) exposure to COVID-19
CPT/HCPCS: 0240U; 36415; 71045; 71275; 74175; 76705; 80048; 80053; 80076; 81003; 81015; 82248; 82565; 82947; 83605; 83690; 83735; 83880; 84484; 85025; 85027; 85610; 88304; 93005; 93306; 94010; 99285; G0378; J1170; J1650; J2175; J2250; J2270; J2405; J2543; J2704; J2710; J3010; J3490; J7030; J7040; J7120; Q9967

== ENCOUNTER 2022-03-06 20:28 | Emergency (ER) | payer OTHER ==
--- OUTSIDE RECORDS SUMMARY | 2022-03-06 20:31 | XMS REPORT | Continuity of Care Document ---
:1950 Author Organization [facility] t Address [address] [place] [address] Care Team Providers Name Role Phone Unknown Primary Care Physician Unavailable RUY Attending Clinician Unavailable NITESH HIGH Attending Clinician Unavailable Aroldo Attending Clinician Unavailable LILLY Attending Clinician Unavailable RUY Attending Clinician Unavailable RUY Admitting Clinician Unavailable NITESH HIGH Admitting Clinician Unavailable Aroldo Admitting Clinician Unavailable Payers Payer Name Policy Type Policy Number Effective Date Expiration Date S el MEDICARE A B [id number] 2013 00:00:00 GENERIC MEDICARE [id number] 2021 SUPPLEMENT 00:00:00 MEDICARE PART A AND [id number] 2013 B 00:00:00 MEDICARE PART A \\T\\ [id number] 2013 B - MEDICARE 00:00:00 MEDIGAP-GENERIC - [id number] 2021 GENERIC PAYOR 00:00:00 Problems This patient has no known problems. Allergies, Adverse Reactions, Alerts Allergy Allergy Status Severity Reaction(s) Onset Inactive Treating Comm ents Source Name Type Date Date Clinician kassandra JENNINGS Active [facility] 5-16 Clear 00:00: Cabrera [address] [address] NO KNOWN Allergy Active [facility] Social History Social Habit Start Date Stop Date Quantity Comments Source Exposure to Not sure [facility] SARS-CoV-2 (event) Tobacco use and 2021-11-18 2021-11-18 Former smokeless [facility] exposure 00:00:00 00:00:00 tobacco user Alcohol intake 2021-11-18 2021-11-18 Ex-drinker [facility] 00:00:00 00:00:00 (finding) Sex Ass[birth year] [facility] 00:00:00 00:00:00 Smoking Status Start Date Stop Date Source Ex-smoker 2021-11-18 00:00:00 2021-11-18 00:00:00 [facility] Ordered Filled Start Stop Current Ordering Indication Dosage Frequency Signature Comments Components Source Medication Medication Date Date Medication? Clinician (SIG) Name Name atenolol Yes 1{tbl} QD Take 1 UT (Tenormin) 1-28 tablet by [facility] th 100 MG 00:00: mouth 1 tablet [...] Administer UT (Astelin) 1-13 } 1 spray [facility] 0.1 % nasal 00:00: into each spray 00 nostril 1 (one) time each day. zolpidem Yes 1{tbl} QD Take 1 UT (Ambien) 10 1-11 tablet by [facility] MG tablet 00:00: mouth 1 00 (one) time each day. potassium 2020-10 Yes 20meq QD Take 20 UT chloride CR 2-20 mEq by [facility] (Klor-Con 00:00: mouth 1 M20) 20 MEQ 00 (one) time ER tablet each day. with food irbesartan 2020-10 Yes 150mg QD Take 150 UT (Avapro) 2-16 mg by [facility] 150 MG 00:00: mouth 1 tablet 00 (one) time each day. rosuvastati 2020-10 Yes 1{tbl} QD Take 1 UT n (Crestor) 2-02 tablet by [facility] lt 20 MG 00:00: mouth 1 tablet 00 (one) time each day. gabapentin Yes 300mg Take 300 UT (Neurontin) 9-29 mg by [facility] 300 MG 00:00: mouth capsule 00 every night. TAKE 1 CAPSULE BY MOUTH EVERY DAY AT BEDTIME potassium 2021- No 40meq QD Take 40 UT chloride CR 6-29 01-31 [facility] (K-Tab) 20 00:00: 00:00 mouth 1 MEQ ER 00 :00 (one) time tablet each day. Flovent HFA Yes 1{puff} Inhale 1 UT 110 MCG/ACT 5-31 puff 1 Health inhaler 00:00: (one) time 00 each day if needed. hydroCHLORO Yes 12.5mg QD Take 12.5 UT thiazide 4-13 mg by [facility] (HYDRODiuri 00:00: mouth 1 l) 12.5 MG [...] Systolic blood pressure 2021-11-18 16:29:00 161 mm[Hg] [facility] Diastolic blood pressure 2021-11-18 16:29:00 93 mm[Hg] [facility] Heart rate 2021-11-18 16:29:00 89 /min [facility] Body temperature 2021-11-18 16:29:00 36.28 Marie [facility] Body height 2021-11-18 16:29:00 185.4 cm [facility] Body weight 2021-11-18 16:29:00 82.555 kg [facility] BMI 2021-11-18 16:29:00 24.01 kg/m2 [facility] WEIGHT 2021-04-13 03:37:00 99.111 kg HEIGHT 2021-04-13 03:37:00 188 cm Procedures This patient has no known procedures. Encounters Start End Encounter Admission Attending Care Care Encounter Source Date/Time Date/Time Type Type Clinicians Facility Department ID 2021-07-28 Outpatient [facility]D [facility] [id number] [facility] 04:47:31 [facility] 2021-04-13 Inpatient ER CARINA HIGH Internal [id number] SLE 03:21:00 [facility] 2022-03-05 2022-03-05 Inpatient RIMMA Kendrick [facility] INTE.02 [id number] [facility] 13:04:00 18:00:00 Aubrey 88 [facility] 2022-03-05 2022-03-05 Inpatient GINA SantosCL INTE.02 [id number] [facility] 13:04:00 18:00:00 Aubrey [address] [facility] 2021-11-18 2021-11-18 Office ANDRASSY, UTP [id number] [place] 10:45:00 11:15:00 Visit ARIEL BURNS [id number] [facility] MEDICAL [id number] [facility] [id number] 2021-05-01 2021-05-01 Outpatient DOM REDMOND [facility] [id number] [facility] 16:21:23 16:38:26 [facility] Results Test Description Test Time Test Comments Results Result Comments Source ACT-ISTAT 2022-03-05 10:17:00 Test Item Value Reference Range Interpretation Comme nts ACT-ISTAT (test code = ACTI) 283 SEC 74-137 H Performed by certified reflow operator at [facility] Novel Coronavirus 2018 [id number] 17:47:00 Test Item Value Reference Range Interpretation Comments Novel Coronavirus Negative Negative Positive r esults are 2019 Inhouse (test indicativ e of the presence code = COVNONPUI) ofSARS-CoV -2 RNA, clinical correlation wit h patient historyand othe r diagnostic info rmation is necessary to determinepatien t infection status. Positiv e results do not rule out bacterial infection or co -infection with other viru ses. Negative result s do not preclude SARS-C oV-2 infection andsh ould not be used as the carmen e basis for patient managementdecis ions. Negative result s must be combined with otherclinical observations, p atient history, and epidemiological information . Detection of SARS-CoV-2 RNA may be affe cted bysample collec tion methods, storag e conditions, and /or stageof infection. Lory l RNA mutations, vacc inations, antiviraltherap eutics, antibiotics, chemotherapeuti c orimmunosuppres mukund drugs have not been e valuated for effectson d etection. Results are for the identification of SARS-CoV-2 RNA usingreal-time (RT) polymerase radha n reaction (PCR) technolog yfor the qualitative det ection of nucleic acids f rom hpbANCU-ShF-[id number] v irus and diagnosis of SA RS-CoV-2 virusinfection. It is an Emergency Use Authorization ( EUA) testauthorized by the U.S. FDA. PROTHROMBIN [id number] 15:32:00 Test Item Value Reference Range Interpretation Comments PROTHROMBIN TIME 17.3 SECONDS 9.3-12.9 H PATIENT (test code = PTP) INTERNATIONAL NORMAL 1.6 0.8-1.2 H TARGET RATIO (test code = INR BY IN DICATION INR) Indication INR1. Prophyl axis of venous thrombos is 2.0 - 3. 0 (orthopedic gilbert bethanie), Prophylaxis of venous thrombos is (other than hig h-risk surgery), Inez tment of Deep Vein Thrombosis/Pulm onary Embolism, Preve ntion of systemic emb olism - Tissue heart va lves, Acute Myocardia l Infarction (to prevent systemic embo lism), Valvular heart disease, Atri al Fibrillation, Bileaflet mecha nical valve in aortic position.2. Mec hanical prosthetic valv es (high risk), 2.5 - 3.5 Presence of Lupus Anticoagu lant or Antiphospholi pid Antibodies, Pre vention of systemic e mbolism - Acute Myocard ial Infarction (t o prevent recurre nt infarct). BASIC METABOLIC [id number] 15:18:00 Test Item Value Reference Range Interpretation Comments SODIUM (test code = NA) 136 mEq/L 134-147 N POTASSIUM (test code = 4.4 mEq/L 3.4-5.0 N K) CHLORIDE (test code = 102 mEq/L 100-108 N CL) CARBON DIOXIDE (test 28 mEq/l 21-33 N code = CO2) ANION GAP (test code = 11 0-20 N GAP) GLUCOSE (test code = 97 mg/dL 70-110 N GLU) BLOOD UREA NITROGEN 20 mg/dL 7-18 H (test code = BUN) GLOMERULAR FILTRATION 73.2 70-80 N Units of measure = RATE (test code = GFR) ml/mi n/1.73 m2 CREATININE (test code = 1.0 mg/dL 0.6-1.3 N CREAT) CALCIUM (test code = 9.4 mg/dL 8.0-10.5 N CA) [id number] 15:18:00 Test Item Value Reference Range Interpretation Comments PREALBUMIN (test code = PREALB) 9.9 mg/dL 16.0-40.0 L CBC W/AUTO [id number] 15:14:00 Test Item Value Reference Range Interpretation Comments WHITE BLOOD CELL (test code = 6.9 x10 3/uL 4.5-11.0 N WBC) RED BLOOD CELL (test code = 3.90 x10 6/uL 4.00-5.60 L RBC) HEMOGLOBIN (test code = HGB) 11.9 g/dL 12.5-16.9 L HEMATOCRIT (test code = HCT) 37.6 % 37.5-50.7 N MEAN CELL VOLUME (test code = 96.4 fL 81.0-99.0 N MCV) MEAN CELL HGB (test code = MCH) 30.5 pg 27.0-33.0 N MEAN CELL HGB CONCETRATION 31.6 g/dL 33.0-37.0 L (test code = MCHC) RED CELL DISTRIBUTION WIDTH CV 14.4 % 11.5-14.5 N (test code = RDW) RED CELL DISTRIBUTION WIDTH SD 50.1 fL 37.0-54.0 N (test code = RDW-SD) PLATELET COUNT (test code = 223 x10 3/uL 150-400 N PLT) MEAN PLATELET VOLUME (test code 10.4 fL 7.0-9.0 H = MPV) NEUTROPHIL % (test code = NT%) 64.8 % 56.0-77.0 N IMMATURE GRANULOCYTE % (test 0.3 % 0.0-2.0 N code = IG%) LYMPHOCYTE % (test code = LY%) 13.2 % 14.0-32.0 L MONOCYTE % (test code = MO%) 10.7 % 4.8-9.0 H EOSINOPHIL % (test code = EO%) 10.0 % 0.3-3.7 H BASOPHIL % (test code = BA%) 1.0 % 0.0-2.0 N NUCLEATED RBC % (test code = 0.0 % 0-0 N NRBC%) NEUTROPHIL # (test code = NT#) 4.48 x10 3/uL 2.0-7.6 N IMMATURE GRANULOCYTE # (test 0.02 x10 3/uL 0.00-0.03 N code = IG#) LYMPHOCYTE # (test code = LY#) 0.91 x10 3/uL 1.0-3.8 L MONOCYTE # (test code = MO#) 0.74 x10 3/uL 0.1-0.8 N EOSINOPHIL # (test code = EO#) 0.69 x10 3/uL 0.0-0.2 H BASOPHIL # (test code = BA#) 0.07 x10 3/uL 0.0-0.2 N NUCLEATED RBC # (test code = 0.00 x10 3/uL 0.0-0.1 N NRBC#) MANUAL DIFF REQUIRED (test code NO = MDIFF) - XR CHEST 2 [id number] 00:00:00 [facility] BRIAN MARINELLI : 1950 Sex: M FAX: Rayray Abrams III [phone] [place]: St: PRE FAX: Aubrey Duff MD [phone] Name: BRIAN MARINELLI [facility] : 1950 Age/S: 71/M [address] [place] [address] Blvd Unit #: [id number] Loc: [place] [address] Phys: Aubrey Kendrick MD Acct: [id number] Dis Date: Status: PRE SDC PHONE #: [phone] Exam Date: 03/03/2022 1436 FAX #: [phone]: PREOP EXAMS: CPT CODE: [id number] XR CHEST 2 V 76687 PROCEDURE INFORMATION: Exam: XR Chest Exam date and time: 03/03/2022 1:59 PM Age: 71 years old Clinical indication: Screening exam; Pre-operative exam; Cardiovascular screening; Additional info: Preop TECHNIQUE: Imaging protocol: XR of the chest. Views: 2 views. PA and Lateral COMPARISON: No relevant prior studies available. FINDINGS: Lungs: No consolidation. Pleural spaces: No pleural effusion. Heart /Mediastinum: Heart appears borderline in size. Bones/joints: No gross acute findings. IMPRESSION: No acute cardiopulmonary findings at 7493 Reported and signed by: Joey Poe D.O. CC: Rayray Hammer M.D.; Aubrey Kendrick MD Technologist: RT Erwin(R) Trnscrd Date/Time/By: 03/03/2022 (5566) : By: [email or web address] Orig Print D/T: S: 03/03/2022 (0808) PAGE 1 Signed Report TISSUE [id number] 08:12:00Surgical Pathology Report Case: [id number] Authorizing Provider: Chester Redmond MD Collected: 04/15/2021 02:56 PM Ordering Location: [address] Received: 04/16/2021 09:23 AM Service Pathologist: Liam Daniel MD Specimens: A) - Polyp, Colon - Right/Ascending, Ascending Colon Polyp with Hot Snare B) -Polyp, Colon - Sigmoid, Sigmoid Colon Polyp with Hot Snare PART A RIGHT ASCENDING COLON POLYP, POLYPECTOMY:SPECIMEN CONSISTS OF FIBRINOUS DEBRIS AND ACUTE INFLAMMATORY CELLS. PART B SIGMOID COLON POLYP, POLYPECTOMY:TUBULAR ADENOMA. Signing Pathologist Direct Phone Line: [phone] signed by Liam Daniel MD on 04/17/2021 at 8:12 [id number] BLEEDA. Ascending colonB. Sigmoid colonA. Received in [...] filtered and submitted in toto in B1.LAKSHMI Liao, HT (ASCP)performedMendocino Coast District Hospital, Department of Pathology, [address] [place] [address], [facility], [facility], [address] [place], [place] [address], WrwwsoSaint [facility], Department of Pathology, [address] [place], [place] [address], RJUXH METABOLIC [id number] 07:41:00 Test Item Value Reference Range Interpretation Comments SODIUM (BEAKER) 138 meq/L 136-145 (test code = 381) POTASSIUM (BEAKER) 3.2 meq/L 3.5-5.1 L (test code = 379) CHLORIDE (BEAKER) 110 meq/L 98-107 H (test code = 382) CO2 (BEAKER) (test 21 meq/L 22-29 L code = 355) BLOOD UREA NITROGEN 9 mg/dL 7-21 (BEAKER) (test code = 354) CREATININE (BEAKER) 1.02 mg/dL 0.57-1.25 (test code = 358) GLUCOSE RANDOM 95 mg/dL 70-105 (BEAKER) (test code = 652) CALCIUM (BEAKER) 8.5 mg/dL 8.4-10.2 (test code = 697) EGFR (BEAKER) (test 72 mL/min/1.73 ESTIMA MICHAEL GFR IS code = 1092) sq m NOT ACCURATE CREATININE CLEARANCE IN PREDICTING GLOMERULAR FILTRATION RATE . ESTIMATED GFR I S NOT APPLICABLE FOR DIALYSIS PATIEN TS. Retail Pharmacy Manager ID - PIRAHUL [id number] 07:41:00 Test Item Value Reference Range Interpretation Comments MAGNESIUM (BEAKER) (test code = 2.2 mg/dL 1.6-2.6 627) Retail Pharmacy Manager ID - SHANTANU LPROTHROMBIN [id number] 07:25:00 Test Item Value Reference Range Interpretation Comments PROTIME (BEAKER) 19.0 seconds 11.9-14.2 H (test code = 759) INR (BEAKER) (test 1.62 See_Comment [Automat ed message] code = 370) The system [employer] Wolly Doodle generated this result transmitted ref erence range: [...] (BEAKER) (test code = 2801) HEMOGLOBIN AND [id number] 17:06:00 Test Item Value Reference Range Interpretation Comments HEMOGLOBIN (BEAKER) (test code = 7.6 GM/DL 13.7-17.5 L 410) HEMATOCRIT (BEAKER) (test code = 26.3 % 40.1-51.0 L 411) Retail Pharmacy Manager ID - [id number] BLOOD SMEAR - PATHOLOGIST [id number] 13:01:00 Test Item Value Reference Range Interpretation Comments RBC MORPHOLOGY Anisocytosis (BEAKER) (test code = 6586) RBC MORPHOLOGY Poikilocytosis (BEAKER) (test code = 97082) RBC MORPHOLOGY Hypochromasia (BEAKER) (test code = 85072) PERIPHERAL SMR REVIEW Cell counts confirmed. (BEAKER) (test code = 2640) [id number] Reva Jimenez M.D. (BEAKER) (test code = (electronic signature) 3447) HEPATITIS PANEL, [id number] 11:48:00 Test Item Value Reference Range Interpretation Comments HEPATITIS A IGM ANTIBODY (BEAKER) Nonreactive Nonreactive (test code = 498) HEPATITIS B CORE IGM ANTIBODY Nonreactive Nonreactive (BEAKER) (test code = 645) HEPATITIS C ANTIBODY (BEAKER) Nonreactive Nonreactive (test code = 367) HEPATITIS B SURFACE ANTIGEN (2) Nonreactive Nonreactive (BEAKER) (test code = 2585) Retail Pharmacy Manager ID - AAHAMIDHEPATITIS C [id number] 11:48:00 Test Item Value Reference Range Interpretation Comments HEPATITIS C ANTIBODY (BEAKER) Nonreactive Nonreactive (test code = 367) [id number] 08:57:00 Test Item Value Reference Range Interpretation Comments MAGNESIUM (BEAKER) (test code = 2.1 mg/dL 1.6-2.6 627) Retail Pharmacy Manager ID - AAHAMIDBASIC METABOLIC [id number] 05:57:00 Test Item Value Reference Range Interpretation [...] S NOT APPLICABLE FOR DIALYSIS PATIEN TS. Retail Pharmacy Manager ID - SHAHEED WSpecimen slightly ictericLACTATE DEHYDROGENASE (LDH) 2021-04-15 05:57:00 Test Item Value Reference Range Interpretation Comments LACTATE DEHYDROGENASE (BEAKER) (test 194 U/L 125-220 code = 635) Retail Pharmacy Manager ID - SHAHEED [id number] 05:52:00 Test Item Value Reference Range Interpretation Comments HAPTOGLOBIN (BEAKER) (test code = 136 mg/dL 14-258 366) Retail Pharmacy Manager ID - SHAHEED WCBC W/PLT COUNT & AUTO [id number] 05:50:00 Test Item Value Reference Range Interpretation [...] PERCENT (BEAKER) (test code = 2801) PROTHROMBIN [id number] 05:50:00 Test Item Value Reference Range Interpretation Comments PROTIME (BEAKER) 17.8 seconds 11.9-14.2 H (test code = 759) INR (BEAKER) (test 1.49 See_Comment [Automat ed message] code = 370) The system L[employer] Wolly Doodle generated this result transmitted ref erence range: <=5.90. The reference range was not used to int erpret this result as normal/abnormal . RECOMMENDED COUMADIN/WARFARIN INR THERAPY RANGESSTANDARD DOSE: 2.0 - 3.0 Includes: PROPHYLAXIS forvenous thrombosis, systemic embolization; TREATMENT for venous thrombosis and/or pulmonary embolus.HIGH RISK: Target INR is 2.5-3.5 for patients with mechanical heart valves.HEMOGLOBIN AND [id number] 14:50:00 Test Item Value Reference Range Interpretation Comments HEMOGLOBIN (BEAKER) (test code = 7.8 GM/DL 13.7-17.5 L 410) HEMATOCRIT (BEAKER) (test code = 25.7 % 40.1-51.0 L 411) Retail Pharmacy Manager ID - [id number] FUNCTION [id number] 10:19:00 Test Item Value Reference Range Interpretation [...] (test code = 28 U/L 6-55 347) Retail Pharmacy Manager ID - ALEXYS Varner slightly ictericGAMMA GLUTAMYL TRANSFERASE (GGT) 2021-04-14 10:19:00 Test Item Value Reference Range Interpretation Comments GAMMA GLUTAMYL TRANSFERASE (BEAKER) 82 U/L 9-64 H (test code = 364) Retail Pharmacy Manager ID Chiquis Varner slightly ictericBASIC METABOLIC [id number] 05:40:00 Test Item Value Reference Range Interpretation [...] S NOT APPLICABLE FOR DIALYSIS PATIEN TS. Retail Pharmacy Manager ID Chiquis Varner slightly ictericPROTHROMBIN [id number] 05:22:00 Test Item Value Reference Range Interpretation Comments PROTIME (BEAKER) 19.4 seconds 11.9-14.2 H (test code = 759) INR (BEAKER) (test 1.67 See_Comment [Automat ed message] code = 370) The system L[employer] Wolly Doodle generated this result transmitted ref erence range: [...] (BEAKER) (test code = 2801) U/S, ABDOMINAL, [id number] 02:12:00Abdomen limited area? Add comment if clarification is needed.->Right upper quadrantReason for exam:->Elevated INR, elevated bilirubin [facility] Aydin : 1950 Sex: MFINAL REPORT Exam: Limited [...] disease. No portal vein thrombosis. Signed: Everett Ferrell MDReport Verified Date/Time: 04/14/2021 02:12:11 SARS-COV2/RT-PCR ([facility])2021-04-13 18:18:00 Test Item Value Reference Range Interpretation Comments SARS-COV2/RT-PCR (test Negative Not Detected, Negative, code = 1540072) See external report for linked test SARS-COV-2 PERFORMING LAB [facility] (test code = 5704748) Negative result for this test determines that [...] 564(g) of the Act.Fact Sheet for Healthcare Providers:https://www.[employer]/sites/default/files/product/documents/Fact_Shee m_CX_Prsrbbkmg_Qsrp_FZYD-FeQ-4.pdfFact Sheet for Healthcare Patients:https://www.[employer]/sites/default/files/product/ documents/Bbeq_Imstd_Aiqmlncm_Raxe_JHMP-BtU-4.pdfPerforming Laboratory:[address], [place] [address]TJZEREGRUM AND [id number] 17:52:00 Test Item Value Reference Range Interpretation Comments HEMOGLOBIN (BEAKER) (test code = 6.4 GM/DL 13.7-17.5 L 410) HEMATOCRIT (BEAKER) (test code = 21.8 % 40.1-51.0 L 411) Retail Pharmacy Manager ID - 6000RETICULOCYTE [id number] 12:34:00 Test Item Value Reference Range Interpretation Comments RETICULOCYTE COUNT PCT (BEAKER) (test 1.9 % 0.5-1.8 H code = 575) Retail Pharmacy Manager ID - [id number] ID - [id number], TIBC, % SAT. (WITHOUT FERRITIN) 2021-04-13 12:21:00 Test Item Value Reference Range Interpretation Comments IRON (BEAKER) (test code = 547) 14.0 ug/dL 40.0-160.0 L TOTAL IRON BINDING CAPACITY 448 ug/dL 250-450 (BEAKER) (test code = 769) IRON % SATURATION (2) (BEAKER) 3 % 20-55 L (test code = 2590) Retail Pharmacy Manager ID - [id number] 12:07:00 Test Item Value Reference Range Interpretation Comments FERRITIN (BEAKER) (test code = 6.43 ng/mL 5.00-275.00 361) Retail Pharmacy Manager ID - ADMINVITAMIN B12 AND [id number] 12:07:00 Test Item Value Reference Range Interpretation Comments VITAMIN B12 1427 pg/mL 213-816 H (BEAKER) (test code = 774) FOLATE (BEAKER) 14.40 ng/mL See_Comment [Automated message] (test code = 362) The system which generated this result transmitted ref erence range: >=7.00. The reference range was not used to interpr et this result as normal/abnormal . Retail Pharmacy Manager ID - ADMINPROTHROMBIN TIME/[id number] 11:33:00 Test Item Value Reference Range Interpretation Comments PROTIME (BEAKER) 24.2 seconds 11.9-14.2 H (test code = 759) INR (BEAKER) (test 2.20 See_Comment [Automat ed message] code = 370) The system whic h generated this result transmitted ref erence range: <=5.90. The reference range was not used to int erpret this result as normal/abnormal . RECOMMENDED COUMADIN/WARFARIN INR THERAPY RANGESSTANDARD DOSE: 2.0 - 3.0 Includes: PROPHYLAXIS forvenous thrombosis, systemic embolization; TREATMENT for venous thrombosis and/or pulmonary embolus.HIGH RISK: Target INR is 2.5-3.5 for patients with mechanical heart valves.[id number] 10:51:00 Test Item Value Reference Range Interpretation Comments MAGNESIUM (BEAKER) (test code = 2.1 mg/dL 1.6-2.6 627) Retail Pharmacy Manager ID - BSBASIC METABOLIC [id number] 07:25:00 Test Item Value Reference Range Interpretation [...] S NOT APPLICABLE FOR DIALYSIS PATIEN TS. Retail Pharmacy Manager ID - BSHEPATIC FUNCTION [id number] 07:25:00 Test Item Value Reference Range Interpretation [...] (test code = 24 U/L 6-55 347) Retail Pharmacy Manager ID - BSCBC W/PLT COUNT & AUTO [id number] 06:55:00 Test Item Value Reference Range Interpretation [...] PERCENT (BEAKER) (test code = 2801) PROTHROMBIN [id number] 06:38:00 Test Item Value Reference Range Interpretation Comments PROTIME (BEAKER) 25.9 seconds 11.9-14.2 H (test code = 759) INR (BEAKER) (test 2.40 See_Comment [Automat ed message] code = 370) The system L[employer] Wolly Doodle generated this result transmitted ref erence range: <=5.90. The reference range was not used to int erpret this result as normal/abnormal . RECOMMENDED COUMADIN/WARFARIN INR THERAPY RANGESSTANDARD DOSE: 2.0 - 3.0 Includes: PROPHYLAXIS forvenous thrombosis, systemic embolization; TREATMENT for venous thrombosis and/or pulmonary embolus.HIGH RISK: Target INR is 2.5-3.5 for patients with mechanical heart valves.
[2022-03-06] MEDS ORDERED: ONDANSETRON 4 MG/2 ML VIAL ONE (21:31)
[2022-03-06] MEDS ORDERED: MEPERIDINE HCL 25 MG/ML SYR ONE (21:31)
[2022-03-06 21:40] LABS: Absolute Lymphocytes (CBC) 1.1 K/uL (0.7-4.9); Hematocrit 39.7 % (39.6-49.0); Lymphocytes % 14.2 % (15.3-44.8); MPV 8.7 fL (7.6-11.3); RBC Red Blood Cell Count 4.32 M/uL (4.33-5.43)
[2022-03-06 21:49] LABS: Protime INR 1.36
[2022-03-06] MEDS ORDERED: PROMETHAZINE INJ 25 MG/ML AMP ONE (21:56)
[2022-03-06] MEDS ORDERED: HYDROMORPHONE HCL 1 MG/ML INJ ONE (21:57)
[2022-03-06] MEDS ORDERED: NA CHLORIDE 0.9% 50 ML ONE (21:57)
[2022-03-06 21:58] LABS: Albumin 3.7 g/dL (3.4-5.0); Bilirubin Total 1.2 mg/dL (0.2-1.0); Potassium 3.8 mmol/L (3.5-5.1); Protein, Total 7.2 g/dL (6.4-8.2)
--- NOTE | 2022-03-06 23:39 | ER ---
Nurse's Notes [facility] Name: Deonte Rojo Age: 71 yrs Sex: Male : 1950 Arrival Date: 03/06/2022 Time: 20:44 Bed 19 Private MD: Diagnosis: Other and unspecified intestinal obstruction;Unilateral inguinal hernia, with obstruction, without gangrene, not specified as recurrent;Hematemesis Presentation: 03/06 21:29 Chief complaint: EMS states: abd pain starting around 5pm, nausea and vomiting at 6pm. sm5 Coronavirus screen: At this time, the client does not indicate any symptoms associated with coronavirus-19. Ebola Screen: No symptoms or risks identified at this time. Initial Sepsis Screen: Does the patient meet any 2 criteria? No. Patient's initial sepsis screen is negative. Does the patient have a suspected source of infection? No. Patient's initial sepsis screen is negative. Risk Assessment: Do you want to hurt yourself or someone else? Patient reports no desire to harm self or others. Onset of symptoms was March 06, 2022. 21:29 Method Of Arrival: EMS: [facility] 5 21:29 Acuity: BRODERICK 3 sm5 Triage Assessment: 21:30 General: Appears distressed, Behavior is appropriate for age. Pain: Complains of pain sm5 in abdomen. Neuro: No deficits noted. Level of Consciousness is awake, alert, obeys commands, Oriented to person, place, time, situation. Cardiovascular: No deficits noted. Capillary refill < 3 seconds Patient's skin is warm and dry. Respiratory: No deficits noted. Airway is patent Trachea midline Respiratory effort is even, unlabored. GI: Reports lower abdominal pain, upper abdominal pain, nausea, vomiting. Historical: - Allergies: 21:31 Codeine; sm5 - PMHx: 21:31 Atrial Fib; GI Bleed; Hernia; Hyperlipidemia; Hypertension; sm5 - Immunization history:: unknown. - Social history:: Smoking status: unknown. - Family history:: not pertinent. - Hospitalizations: : No recent hospitalization is reported. Screenin:31 Abuse screen: Denies threats or abuse. Denies injuries from another. Nutritional sm5 screening: No deficits noted. Tuberculosis screening: No symptoms or risk factors identified. Fall Risk None identified. Assessment: 21:40 Reassessment: see triage assessment. 5 22:45 Reassessment: No changes from previously documented assessment. Patient and/or family sm5 updated on plan of care and expected duration. Pain level reassessed. 23:45 Reassessment: Patient and/or family updated on plan of care and expected duration. Pain sm5 level reassessed. Patient is alert, oriented x 3, equal unlabored respirations, skin warm/dry/pink. Patient states feeling better. Vital Signs: 21:29 BP 136 / 77; Pulse 74; Resp 21; Pulse Ox 100% on R/A; Weight 77.11 kg; Height 6 ft. 1 sm5 in. (185.42 cm); Pain 10/10; 22:00 BP 128 / 63; Pulse 66; Resp 19; Pulse Ox 100% on R/A; sm5 03/07 00:42 BP 92 / 56; Pulse 54; Resp 18; Pulse Ox 100% on R/A; sm5 04:18 BP 103 / 69; Pulse 80; Resp 18; Pulse Ox 100% on R/A; sm5 03/06 21:29 Body Mass Index 22.43 (77.11 kg, 185.42 cm) [facility] ED Course: 03/06 20:44 Patient arrived in ED. rn 20:44 Saman Kilgore MD is Attending Physician. rn 21:18 Ashley Ko RN is Primary Nurse. sm5 21:29 Protime (+inr) Sent. sm5 21:29 Ptt, Activated Sent. sm5 21:29 CBC with Diff Sent. sm5 21:29 CMP Sent. sm5 21:29 Lipase Sent. sm5 21:30 Triage completed. sm5 21:31 Arm band placed on right wrist. sm5 21:32 Maintain EMS IV. Dressing intact. Good blood return noted. Site clean \T\ dry. Gauge \T\ sm 5 site: 20G RAC. 22:42 Abdomen In Process Unspecified. EDMS 22:45 Gastric Occult Blood Sent. sm5 23:47 Inserted saline lock: 20 gauge in left forearm, using aseptic technique. 5 23:48 Initiated call for transfer, spoke to Sindhu Freitas. 03/07 00:44 No provider procedures requiring assistance completed. 5 00:44 Patient has correct armband on for positive identification. Bed in low position. Call 5 light in reach. Side rails up X2. 01:16 Pt accepted for transfer to [facility] and the Dr. accepting is Dr. Ron Luo in Rm A506. 01:22 NGT: inserted 16 Fr. via right nare. verified placement of air over stomach, Patient sm5 tolerated well. 01:49 XRAY Abdomen 1 View (KUB) In Process Unspecified. EDMS 04:19 Patient transferred, IV remains in place. 5 Administered Medications: 03/06 21:28 Drug: Zofran (Ondansetron) 4 mg Route: IVP; Site: right antecubital; 5 21:59 Follow up: Response: Nausea unchanged sm5 21:28 Drug: Demerol (meperidine) 25 mg Route: IVP; Site: right antecubital; 5 21:59 Follow up: Response: Pain is unchanged, physician notified 5 21:57 Drug: Dilaudid (HYDROmorphone) 1 mg Route: IVP; Site: right antecubital; 5 21:57 Drug: Phenergan (promethazine) 12.5 mg Route: IVP; Site: right antecubital; 5 03/07 00:22 Drug: ProTONIX (pantoprazole) 40 mg Route: IVP; Site: left forearm; 5 01:26 Follow up: Response: No adverse reaction 5 00:25 Drug: ProTONIX (pantoprazole) 8 mg/hr Route: IV; Rate: 25 ml/hr; Site: left forearm; 5 00:25 Drug: Zosyn (piperacillin-tazobactam) 3.375 grams Route: IVPB; Infused Over: 60 mins; 5 Site: right antecubital; 01:22 Drug: NS 0.9% 250 ml Route: IV; Rate: bolus; Site: right antecubital; 5 Medication: 00:44 VIS not applicable for this client. 5 Outcome: 03/06 23:39 ER care complete, transfer ordered by MD. lucas 03/07 04:18 Transferred by ground EMS to other acute care facility: [facility]. Transfer 5 form completed. X-rays sent w/ patient. Condition: stable Instructed on the need for transfer. 04:26 Patient left the ED. 5 Signatures: Dispatcher [employer] EDMS Saman Kilgore MD MD rn Echo Jj Sarah, RN RN 5
--- NOTE | 2022-03-06 23:40 | EDPHYS ---
Physician Documentation [facility] Name: Deonte Rojo Age: 71 yrs Sex: Male : 1950 Arrival Date: 03/06/2022 Time: 20:44 Bed 19 Private MD: ED Physician Saman Kilgore HPI: 03/06 20:45 This 71 yrs old Male presents to ER via Unassigned with complaints of abdominal pain. rn 20:45 The patient presents with abdominal pain in the periumbilical area. Onset: The rn symptoms/episode began/occurred today. The symptoms do not radiate. Associated signs and symptoms: Pertinent positives: nausea and vomiting, Pertinent negatives: fever, shortness of breath, vomiting blood. The symptoms are described as sharp, stabbing. Modifying factors: The symptoms are alleviated by nothing, the symptoms are aggravated by movement, touching the area. Severity of pain: At its worst the pain was moderate in the emergency department the pain is unchanged. The patient has not experienced similar symptoms in the past. The patient has been recently seen by a physician:. Pt reports sudden onset abd pain, central, vague, assoc with nausea/vomiting. No fever. Had cholecystectomy [address] Lieberman, had watchman procedure done yesterday with Dr. Kendrick. Historical: - Allergies: 21:31 Codeine; sm5 - PMHx: 21:31 Atrial Fib; GI Bleed; Hernia; Hyperlipidemia; Hypertension; sm5 - Immunization history:: unknown. - Social history:: Smoking status: unknown. - Family history:: not pertinent. - Hospitalizations: : No recent hospitalization is reported. ROS: 20:45 Constitutional: Negative for fever, chills, and weight loss, Eyes: Negative for injury, rn pain, redness, and discharge, Cardiovascular: Negative for chest pain, palpitations, and edema, Respiratory: Negative for shortness of breath, cough, wheezing, and pleuritic chest pain, Abdomen/GI: + abd pain with nausea/vomiting Back: Negative for injury and pain, MS/Extremity: Negative for injury and deformity, Skin: Negative for injury, rash, and discoloration, Neuro: Negative for headache, weakness, numbness, tingling, and seizure. Exam: 20:45 Constitutional: This is a well developed, well nourished patient who is awake, alert, rn uncomfortable, holding abdomen Head/Face: Normocephalic, atraumatic. Eyes: Periorbital areas with no swelling, redness, or edema. Cardiovascular: Tachycardic, irregular. Pulses equal. Respiratory: No increased work of breathing, no retractions or nasal flaring. Abdomen/GI: soft, + tender mid abdomen and tender near and at umbilical hernia, no skin discoloration noted. No distension. Skin: Warm, dry MS/ Extremity: Pulses equal, no cyanosis. Neuro: Awake and alert, GCS 15 Vital Signs: 21:29 BP 136 / 77; Pulse 74; Resp 21; Pulse Ox 100% on R/A; Weight 77.11 kg; Height 6 ft. 1 5 in. (185.42 cm); Pain 10/10; 22:00 BP 128 / 63; Pulse 66; Resp 19; Pulse Ox 100% on R/A; sm5 03/07 00:42 BP 92 / 56; Pulse 54; Resp 18; Pulse Ox 100% on R/A; 5 04:18 BP 103 / 69; Pulse 80; Resp 18; Pulse Ox 100% on R/A; sm5 03/06 21:29 Body Mass Index 22.43 (77.11 kg, 185.42 cm) [facility] MDM: 03/06 20:44 Patient medically screened. rn 23:13 ED course: Gastric contents + for blood, not grossly, but patient on eliquis. CT shows rn SBO, likely from right inguinal hernia. No GI here. Will have to transfer for SBO and GI bleed, although GI bleed likely small jose c rodriguez. . 23:34 ED course: Paged Dr. Lieberman on patient's request and recent surgery by him, no call rn back, will transfer. . 23:36 ED course: Attempted reduction of right inguinal hernia after dilaudid, not able to rn reduce. Overall patient doing better. . 23:36 Differential diagnosis: bowel obstruction, incarcerated hernia, GI bleed, jose c rn rodriguez. Data reviewed: vital signs, nurses notes, lab test result(s), radiologic studies, CT scan, and as a result, I will admit patient. Counseling: I had a detailed discussion with the patient and/or guardian regarding: the historical points, exam findings, and any diagnostic results supporting the discharge/admit diagnosis, lab results, radiology results, the need for further work-up and treatment in the hospital, the need to transfer to another facility, [facility] does not immediately have the required specialist. Response to treatment: the patient's symptoms have mildly improved after treatment, and as a result, I will admit patient. 03/07 00:03 ED course: Hernia now has been successfully reduced, abd pain nearly resolved, appears rn much more comfortable. Spoke with him regarding dark emesis with + test for blood, still trying transfer to [facility] for GI bleed secondary to initial bowel obstruction from incarcerated inguinal hernia which has now improved. . 03/06 20:45 Order name: CBC with Diff; Complete Time: 21:50 03/06 20:45 Order name: CMP; Complete Time: :58 03/06 20:45 Order name: Lipase; Complete Time: :58 03/06 20:45 Order name: Protime (+inr); Complete Time: :50 03/06 20:45 Order name: Ptt, Activated; Complete Time: :50 03/06 22:42 Order name: Gastric Occult Blood; Complete Time: 23:12 [facility] 03/06 20:45 Order name: CT Abd/Pelvis - IV Contrast Only 03/06 20:49 Order name: Abdomen [facility] 03/07 01:21 Order name: SARS-COV-2 RT PCR (Document "Date of Onset" if Symptomatic); Complete Time: rn 03:03/07 01:25 Order name: XRAY Abdomen 1 View (KUB) sm5 03/06 20:45 Order name: IV Saline Lock; Complete Time: : 03/06 20:45 Order name: Labs collected and sent; Complete Time: : 03/06 20:45 Order name: NPO; Complete Time: : 03/06 20:45 Order name: Cardiac monitoring; Complete Time: 22:46 03/06 20:45 Order name: O2 Sat Monitoring; Complete Time: 21: 03/06 20:45 Order name: EKG; Complete Time: 20:45 03/06 20:45 Order name: EKG - Nurse/Tech; Complete Time: 21:57 03/06 21:54 Order name: Gastrocult; Complete Time: 22:45 03/07 00:47 Order name: NG Tube; Complete Time: : rn Administered Medications: 03/06 21:28 Drug: Zofran (Ondansetron) 4 mg Route: IVP; Site: right antecubital; 5 21:59 Follow up: Response: Nausea unchanged 5 21:28 Drug: Demerol (meperidine) 25 mg Route: IVP; Site: right antecubital; 5 21:59 Follow up: Response: Pain is unchanged, physician notified 5 21:57 Drug: Dilaudid (HYDROmorphone) 1 mg Route: IVP; Site: right antecubital; 5 21:57 Drug: Phenergan (promethazine) 12.5 mg Route: IVP; Site: right antecubital; 5 03/07 00:22 Drug: ProTONIX (pantoprazole) 40 mg Route: IVP; Site: left forearm; 5 01:26 Follow up: Response: No adverse reaction [facility] 00:25 Drug: ProTONIX (pantoprazole) 8 mg/hr Route: IV; Rate: 25 ml/hr; Site: left forearm; 5 00:25 Drug: Zosyn (piperacillin-tazobactam) 3.375 grams Route: IVPB; Infused Over: 60 mins; 5 Site: right antecubital; :22 Drug: NS 0.9% 250 ml Route: IV; Rate: bolus; Site: right antecubital; 5 Disposition Summary: 03/06/22 23:39 Transfer Ordered Transfer Location: [facility] rn Reason: Higher level of care rn Condition: Stable rn Problem: new rn Symptoms: have improved rn Accepting Physician: (03/07/22 04:26) 5 Diagnosis - Other and unspecified intestinal obstruction rn - Unilateral inguinal hernia, with obstruction, without gangrene, not specified as rn recurrent - Hematemesis rn Forms: - Medication Reconciliation Form rn - SBAR form rn Signatures: Dispatcher [employer] Saman Javier MD MD rn Mazur, Sarah, RN RN 5 Corrections: (The following items were deleted from the chart) 04:26 03/06 23:39 Dr. lucas [facility]
[2022-03-06] MEDS ORDERED: PANTOPRAZOLE 40 MG INJ ONE (23:59)
[2022-03-07] MEDS ORDERED: PIPERACIL/TAZO 3.375 GM VIAL IV ONE
[2022-03-07] MEDS ORDERED: NA CHLORIDE 0.9% 100 ML IV ONE
[2022-03-07] MEDS ORDERED: LIDOCAINE VISCOUS 2% SOLN 15 ML UDC ONE (01:11)
[2022-03-07] MEDS ORDERED: NA CHLORIDE 0.9% 250 ML ONE ×2 (01:11)
[2022-03-07 04:45] VITALS: O2SAT 100
[2022-03-07 05:08] VITALS: BP 103/69
--- NOTE | 2022-03-07 09:29 | RAD REPORT ---
EXAM DESCRIPTION: CT Abdomen Pelvis W Contrast CLINICAL HISTORY: 71 years Male Abdominal pain, acute, nonlocalized TECHNIQUE: Contiguous axial images obtained through the abdomen and pelvis following intravenous con trast administration. Coronal and sagittal reformatted images provided. This CT exam was performed according to our departmental dose-optimization program, which includes on e or more of the following dose reduction techniques: automated exposure control, adjustment of the m A and/or kV according to patient size, and/or use of iterative reconstruction technique. COMPARISON: 05/12/2021 FINDINGS: Again seen is moderate to severe enlargement of the heart, incompletely imaged. This appea rs to disproportionately affect the right side of the heart, which is dilated. There is dilatation of the IVC and hepatic veins with contrast reflux into the liver. Previously seen right pleural effusion has resolved. The lung bases are clear. A moderate amount of diffuse peritoneal ascites has increased in volume since the prior exam. There h as been pronounced increase in size in the previously seen right inguinal hernia, which now extends i nto the scrotum and contains ascitic fluid as well as a few loops of mildly distended small bowel. Th is serves as the transition point for a low-grade distal small bowel obstruction, with distended loop s measuring up to 2.7 cm. No pneumatosis or free intraperitoneal air. Normal appendix. Distal colonic diverticulosis. No definite colonic inflammation or obstruction. The liver is again noted to be enlarged with a small cyst in the left lobe. Prior cholecystectomy without biliary dilatation. The pancreas, spleen, adrenal glands, and kidneys are normal. There is moderate distention of the uri nary bladder without visualized mural lesion. Atherosclerosis without abdominal aortic aneurysm or dissection. No acute osseous abnormality. IMPRESSION: Cardiomegaly with disproportionate dilatation of the right side of the heart consistent with right heart failure. Hepatomegaly. Ascites has increased since the prior exam. Right inguinal hernia has increased since the prior exam, now extending into the scrotum and containi ng fluid and mildly distended small bowel. This serves as the transition point for a low-grade distal small bowel obstruction. No pneumatosis or free air. Bladder distention. THIS REPORT CONTAINS FINDINGS THAT MAY BE CRITICAL TO PATIENT CARE: The findings were verbally discus sed via telephone conference with Dr. Saman Kilgore by Dr. Airam Kent on 03/06/2022 11:11 PM CDT . The results were acknowledged and understood. Electronically signed by: Airam Kent MD 03/06/2022 11:13 PM CDT Due to temporary technical issues with the PACS/Fluency reporting system, reports are being signed by the in house radiologists without review as a courtesy to insure prompt reporting. The interpreting radiologist is fully responsible for the content of the report.
--- NOTE | 2022-03-07 14:15 | RAD REPORT ---
EXAM DESCRIPTION: Abdomen 1 View (KUB) CLINICAL HISTORY: 71 years Male, POST NG PLACEMENT COMPARISON: None. FINDINGS: NG tube demonstrated with tip projecting over the proximal gastric body. Bowel gas pattern appears nonobstructive. There is contrast in the renal collecting systems, ureters, and bladder from prior study. Osseous structures demonstrate no acute findings. IMPRESSION: NG tube in place as above. Nonobstructive bowel gas pattern. Electronically signed by: Alvarado Norris MD 03/07/2022 3:50 AM CDT Due to temporary technical issues with the PACS/Fluency reporting system, reports are being signed by the in house radiologists without review as a courtesy to insure prompt reporting. The interpreting radiologist is fully responsible for the content of the report.
--- NOTE | 2022-03-10 11:31 | EKG ---
Test Date: 2022-03-06 Test Time: 21:45:05 Can Tester: DANIA MEASUREMENT RESULTS: Intervals: Rate: 81 CT: QRSD: 110 QT: 414 QTc: 480 [place]: P: CT: QRS: 45 T: 24 INTERPRETIVE STATEMENTS: Atrial fibrillation with premature ventricular or aberrantly conducted complexes Prolonged QT Abnormal ECG Compared to ECG 02/10/2022 23:41:50 Ventricular premature complex(es) now present T-wave abnormality no longer present Electronically Signed On 03-10-22 11:24:11 CDT by Paddy Sanz
== END 2022-03-07 04:26 | disposition short-term general hospital (02) ==
LOC: ER 20:28
DX: K56.699 Other intestinal obstruction unspecified as to partial versus complete obstruction (principal); K40.30 Unilateral inguinal hernia, with obstruction, without gangrene, not specified as recurrent; I10 Essential (primary) hypertension; Z20.822 Contact with and (suspected) exposure to COVID-19; Z98.890 Other specified postprocedural states; Z90.49 Acquired absence of other specified parts of digestive tract; Z88.5 Allergy status to narcotic agent
CPT/HCPCS: 93005; 85025; 36415; 85610; 83986; 82271; 85730; 83690; 80053; 74177; 74018; 99285; U0003; Q9967; J2550; C9113; J2175; J1170; J7050; J2405

== ENCOUNTER 2022-03-09 13:26 | Inpatient (IN) | payer OTHER ==
--- OUTSIDE RECORDS SUMMARY | 2022-03-09 13:30 | XMS REPORT | Continuity of Care Document ---
:[address] [facility] t Address [address] [place] [address] Dr. [address]. [address] [place] [address] Care Team Providers Name Role Phone Unknown Primary Care Physician Unavailable RUY Attending Clinician Unavailable NITESH HIGH Attending Clinician Unavailable SAPPHIRE BOWMAN Attending Clinician Unavailable ADRIANNA LIRA Attending Clinician Unavailable Aroldo Attending Clinician Unavailable LILLY Attending Clinician Unavailable RUY Attending Clinician Unavailable RUY Admitting Clinician Unavailable NITESH HIGH Admitting Clinician Unavailable SAPPHIRE BOWMAN Admitting Clinician Unavailable Aroldo Admitting Clinician Unavailable Payers Payer Name Policy Type Policy Number Effective Date Expiration Date S el MEDICARE A B [id number] 2013 00:00:00 GENERIC MEDICARE [id number] 2021 SUPPLEMENT 00:00:00 MEDICARE PART A AND [id number] 2013 B 00:00:00 MEDICARE PART A \\T\\ [id number] 2013 B - MEDICARE 00:00:00 MEDIGAP-GENERIC - [id number] 2021 GENERIC PAYOR 00:00:00 Problems This patient has no known problems. Allergies, Adverse Reactions, Alerts Allergy Allergy Status Severity Reaction(s) Onset Inactive Treating Comm ents Source Name Type Date Date Clinician CODEINE Allergy [facility] codeine DA Active U ITCHING [facility] Clear 00:00: Jacob [address] [place] [address] NO KNOWN Allergy Active [facility] ALLERGIE S Social History Social Habit Start Date Stop Date Quantity Comments Source Exposure to Not sure [facility] SARS-CoV-2 (event) Tobacco use and 2021-11-18 2021-11-18 Former smokeless [facility] exposure 00:00:00 00:00:00 tobacco user Alcohol intake 2021-11-18 2021-11-18 Ex-drinker [facility] 00:00:00 00:00:00 (finding) Sex [birth year] [facility] 00:00:00 00:00:00 Smoking Status Start Date Stop Date Source Ex-smoker 2021-11-18 00:00:00 2021-11-18 00:00:00 [facility] Ordered Filled Start Stop Current Ordering Indication Dosage Frequency Signature Comments Components Source Medication Medication Date Date Medication? Clinician (SIG) Name Name atenolol Yes 1{tbl} QD Take 1 UT (Tenormin) 1-28 tablet by [facility]al [facility] 100 MG 00:00: mouth 1 tablet [...] Administer UT (Astelin) 1-13 } 1 spray [facility] 0.1 % nasal 00:00: into each spray 00 nostril 1 (one) time each day. zolpidem Yes 1{tbl} QD Take 1 UT (Ambien) 10 1-11 tablet by Hea l[facility] MG tablet 00:00: mouth 1 00 (one) time each day. potassium 2020-10 Yes 20meq QD Take 20 UT chloride CR 2-20 mEq by Health (Klor-Con 00:00: mouth 1 M20) 20 MEQ 00 (one) time ER tablet each day. with food irbesartan 2020-10 Yes 150mg QD Take 150 UT (Avapro) 2-16 mg by [facility] 150 MG 00:00: mouth 1 tablet 00 (one) time each day. rosuvastati 2020-10 Yes 1{tbl} QD Take 1 UT n (Crestor) 2-02 tablet by [facility] lt 20 MG 00:00: mouth 1 tablet 00 (one) time each day. gabapentin Yes 300mg Take 300 UT (Neurontin) 9-29 mg by [facility] 300 MG 00:00: mouth capsule 00 every night. TAKE 1 CAPSULE BY MOUTH EVERY DAY AT BEDTIME potassium 40meq QD Take 40 UT chloride CR 6-29 01-31 mEq by [facility] (K-Tab) 20 00:00: 00:00 mouth 1 MEQ ER 00 :00 (one) time tablet each day. Flovent HFA Yes 1{puff} Inhale 1 UT 110 MCG/ACT 5-31 puff 1 [facility] inhaler 00:00: (one) time 00 each day if needed. hydroCHLORO Yes 12.5mg QD Take 12.5 UT thiazide 4-13 mg by [facility] (HYDRODiuri 00:00: mouth 1 l) 12.5 MG 00 (one) time tablet each day. Xarelto 20 Yes 20mg Take 20 mg U T MG tablet 4-11 by mouth 1 [facility] 00:00: (one) time 00 each day before evening meal. Vital Signs Vital Name Observation Time Observation Value Comments Source WEIGHT 2021-04-13 03:37:00 99.111 kg HEIGHT 2021-04-13 03:37:00 188 cm HEIGHT 2022-03-07 05:54:00 185.4 cm WEIGHT 2022-03-07 05:54:00 77.973 kg HEIGHT 2022-03-07 05:54:00 185.4 cm WEIGHT 2022-03-07 05:54:00 77.973 kg Systolic blood pressure 2021-11-18 16:29:00 161 mm[Hg] [facility] Diastolic blood pressure 2021-11-18 16:29:00 93 mm[Hg] [facility] Heart rate 2021-11-18 16:29:00 89 /min [facility] Body temperature 2021-11-18 16:29:00 36.28 Marie [facility] Body height 2021-11-18 16:29:00 185.4 cm [facility] Body weight 2021-11-18 16:29:00 82.555 kg [facility] BMI 2021-11-18 16:29:00 24.01 kg/m2 [facility] WEIGHT 2021-04-13 03:37:00 99.111 kg HEIGHT 2021-04-13 03:37:00 188 cm Procedures Procedure Date / Time Performed Performing Clinician Cathy hughes [id number] 2022-03-05 00:00:00 RASSA [facility] Encounters Start End Encounter Admission Attending Care Care Encounter Source Date/Time Date/Time Type Type Clinicians Facility Department ID 2021-07-28 Outpatient CARINA REDMOND Surgery [id number] 04:47:31 [place] 2021-04-13 Inpatient ER JUDD HIGH Internal [id number] [facility] 03:21:00 CHRISTOPHER Med 2022-03-07 2022-03-09 Inpatient ER [facility] [id number] [facility] 05:31:00 12:10:00 STEPHIE Med 2022-03-05 2022-03-05 Inpatient EL Aroldo, [facility] INTE.02 [id number] [facility] 13:04:00 18:00:00 Aubrey 88 [facility] 2022-03-05 2022-03-05 Inpatient RIMMA Kendrick, [facility] INTE.02 [id number] [facility] 13:04:00 18:00:00 Aubrey [address] [facility] 2021-11-18 2021-11-18 Office ANDRASSY, [facility] [[email or web address]] [phone] [id number] [place] 10:45:00 11:15:00 Visit ARIEL BURNS [id number] H [facility] MEDICAL [id number] [facility] [id number] 2021-05-01 2021-05-01 Outpatient DOM REDMOND [id number] [facility] 16:21:23 16:38:26 [facility] Results Test Description Test Time Test Comments Results Result Comments Source MAGNESIUM 2022-03-09 05:36:44 Test Item Value Reference Range Interpretation Comme nts MAGNESIUM (BEAKER) (test code = 627) 2.0 mg/dL 1.5-3.0 Specimen markedly hemolyzed Hydroelectric Plant Technician ID - [id number] ID - [id number] ID - [id number] ID - [id number] METABOLIC [id number] 05:35:27 Test Item Value Reference Range Interpretation Comments SODIUM (BEAKER) 136 meq/L 135-148 (test code = 381) POTASSIUM (BEAKER) 4.7 meq/L 3.6-5.5 Specimen markedly (test code = 379) hemolyzed CHLORIDE (BEAKER) 105 meq/L 98-106 (test code = 382) CO2 (BEAKER) (test 20 meq/L 20-29 code = 355) BLOOD UREA NITROGEN 13 mg/dL 10-26 (BEAKER) (test code = 354) CREATININE (BEAKER) 0.70 mg/dL 0.50-1.20 Specimen markedly (test code = 358) hemolyzed GLUCOSE RANDOM 86 mg/dL 70-110 (BEAKER) (test code = 652) CALCIUM (BEAKER) 8.6 mg/dL 8.5-10.5 (test code = 697) EGFR (BEAKER) (test 111 mL/min/1.73 ESTIM ATED GFR IS code = 1092) sq m NOT ACCURATE CREATININE CLEARANCE IN PREDICTING GLOMERULAR FILTRATION RATE . ESTIMATED GFR I S NOT APPLICABLE FOR DIALYSIS PATIEN TS. Hydroelectric Plant Technician ID - [id number] ID - [id number] ID - [id number] ID - [id number] ID - [id number] ID - [id number] ID - [id number] ID - [id number] ID - [id number] 05:34:08 Test Item Value Reference Range Interpretation Comments PHOSPHORUS (BEAKER) 2.8 mg/dL 2.5-4.5 Specimen markedly (test code = 604) hemolyzed Hydroelectric Plant Technician ID - [id number] W/PLT COUNT & AUTO [id number] 05:16:46 Test Item Value Reference Range Interpretation Comments WHITE BLOOD CELL COUNT (BEAKER) 8.4 K/ L 4.0-10.0 (test code = 775) RED BLOOD CELL COUNT (BEAKER) 3.96 M/ L 4.20-5.80 L (test code = 761) HEMOGLOBIN (BEAKER) (test code = 12.2 GM/DL 13.0-16.8 L 410) HEMATOCRIT (BEAKER) (test code = 37.1 % 36.0-50.0 411) MEAN CORPUSCULAR VOLUME (BEAKER) 93.7 fL 82.0-99.0 (test code = 753) MEAN CORPUSCULAR HEMOGLOBIN 30.8 pg 27.0-33.0 (BEAKER) (test code = 751) MEAN CORPUSCULAR HEMOGLOBIN CONC 32.9 GM/DL 32.0-36.0 (BEAKER) (test code = 752) RED CELL DISTRIBUTION WIDTH 13.9 % 12.0-15.0 (BEAKER) (test code = 412) PLATELET COUNT (BEAKER) (test 158 K/CU MM 150-430 code = 756) MEAN PLATELET VOLUME (BEAKER) 11.9 fL 6.0-11.5 H (test code = 754) NUCLEATED RED BLOOD CELLS 0 /100 WBC 0-0 (BEAKER) (test code = 413) NEUTROPHILS RELATIVE PERCENT 64 % (BEAKER) (test code = 429) LYMPHOCYTES RELATIVE PERCENT 16 % (BEAKER) (test code = 430) MONOCYTES RELATIVE PERCENT 11 % (BEAKER) (test code = 431) EOSINOPHILS RELATIVE PERCENT 9 % (BEAKER) (test code = 432) BASOPHILS RELATIVE PERCENT 1 % (BEAKER) (test code = 437) NEUTROPHILS ABSOLUTE COUNT 5.41 K/ L 1.80-8.00 (BEAKER) (test code = 670) LYMPHOCYTES ABSOLUTE COUNT 1.30 K/ L 1.48-4.50 L (BEAKER) (test code = 414) MONOCYTES ABSOLUTE COUNT (BEAKER) 0.88 K/ L 0.00-1.30 (test code = 415) EOSINOPHILS ABSOLUTE COUNT 0.74 K/ L 0.00-0.50 H (BEAKER) (test code = 416) BASOPHILS ABSOLUTE COUNT (BEAKER) 0.05 K/ L 0.00-0.20 (test code = 417) IMMATURE GRANULOCYTES-RELATIVE 0 % 0-0 PERCENT (BEAKER) (test code = 2801) [id number] 05:01:04 Test Item Value Reference Range Interpretation Comments MAGNESIUM (BEAKER) (test code = 1.8 mg/dL 1.5-3.0 627) Hydroelectric Plant Technician ID - LITOOperator ID - LITOOperator ID - LITOOperator ID - LITOBASIC METABOLIC [id number] 04:59:33 Test Item Value Reference Range Interpretation Comments SODIUM (BEAKER) 137 meq/L 135-148 (test code = 381) POTASSIUM (BEAKER) 4.3 meq/L 3.6-5.5 (test code = 379) CHLORIDE (BEAKER) 106 meq/L 98-106 (test code = 382) CO2 (BEAKER) (test 22 meq/L 20-29 code = 355) BLOOD UREA NITROGEN 13 mg/dL 10-26 (BEAKER) (test code = 354) CREATININE (BEAKER) 0.70 mg/dL 0.50-1.20 (test code = 358) GLUCOSE RANDOM 98 mg/dL 70-110 (BEAKER) (test code = 652) CALCIUM (BEAKER) 8.7 mg/dL 8.5-10.5 (test code = 697) EGFR (BEAKER) (test 111 mL/min/1.73 ESTIM ATED GFR IS code = 1092) sq m NOT ACCURATE CREATININE CLEARANCE IN PREDICTING GLOMERULAR FILTRATION RATE . ESTIMATED GFR I S NOT APPLICABLE FOR DIALYSIS PATIEN TS. Hydroelectric Plant Technician ID - LITOOperator ID - LITOOperator ID - LITOOperator ID - LITOOperator ID - LITOOperator ID - LITOOperator ID - LITOOperator ID - LITOOperator ID - [id number] 04:58:11 Test Item Value Reference Range Interpretation Comments PHOSPHORUS (BEAKER) (test code = 2.6 mg/dL 2.5-4.5 604) Hydroelectric Plant Technician ID - LITOCBC W/PLT COUNT & AUTO [id number] 04:40:20 Test Item Value Reference Range Interpretation Comments WHITE BLOOD CELL COUNT (BEAKER) 10.0 K/ L 4.0-10.0 (test code = 775) RED BLOOD CELL COUNT (BEAKER) 3.93 M/ L 4.20-5.80 L (test code = 761) HEMOGLOBIN (BEAKER) (test code = 12.2 GM/DL 13.0-16.8 L 410) HEMATOCRIT (BEAKER) (test code = 37.0 % 36.0-50.0 411) MEAN CORPUSCULAR VOLUME (BEAKER) 94.1 fL 82.0-99.0 (test code = 753) MEAN CORPUSCULAR HEMOGLOBIN 31.0 pg 27.0-33.0 (BEAKER) (test code = 751) MEAN CORPUSCULAR HEMOGLOBIN CONC 33.0 GM/DL 32.0-36.0 (BEAKER) (test code = 752) RED CELL DISTRIBUTION WIDTH 14.1 % 12.0-15.0 (BEAKER) (test code = 412) PLATELET COUNT (BEAKER) (test 158 K/CU MM 150-430 code = 756) MEAN PLATELET VOLUME (BEAKER) 10.6 fL 6.0-11.5 (test code = 754) NUCLEATED RED BLOOD CELLS 0 /100 WBC 0-0 (BEAKER) (test code = 413) NEUTROPHILS RELATIVE PERCENT 76 % (BEAKER) (test code = 429) LYMPHOCYTES RELATIVE PERCENT 9 % (BEAKER) (test code = 430) MONOCYTES RELATIVE PERCENT 10 % (BEAKER) (test code = 431) EOSINOPHILS RELATIVE PERCENT 4 % (BEAKER) (test code = 432) BASOPHILS RELATIVE PERCENT 1 % (BEAKER) (test code = 437) NEUTROPHILS ABSOLUTE COUNT 7.57 K/ L 1.80-8.00 (BEAKER) (test code = 670) LYMPHOCYTES ABSOLUTE COUNT 0.91 K/ L 1.48-4.50 L (BEAKER) (test code = 414) MONOCYTES ABSOLUTE COUNT (BEAKER) 0.99 K/ L 0.00-1.30 (test code = 415) EOSINOPHILS ABSOLUTE COUNT 0.42 K/ L 0.00-0.50 (BEAKER) (test code = 416) BASOPHILS ABSOLUTE COUNT (BEAKER) 0.05 K/ L 0.00-0.20 (test code = 417) IMMATURE GRANULOCYTES-RELATIVE 0 % 0-0 PERCENT (BEAKER) (test code = 2801) POCT-GLUCOSE [id number] 21:06:05 Test Item Value Reference Range Interpretation Comments POC-GLUCOSE METER 113 mg/dL 70-110 H : TESTED A T [facility] 1317 (BEAKER) (test code [address], = 1538) [place] [address] 478: Hydroelectric Plant Technician/Techni jessica ID = [id number] for Mariah Dinero POCT-GLUCOSE [id number] 17:08:50 Test Item Value Reference Range Interpretation Comments POC-GLUCOSE METER 125 mg/dL 70-110 H : TESTED A T [facility] (BEAKER) (test code [address], = 1538) [place] [address] 478: Hydroelectric Plant Technician/Techni jessica ID = [id number] for Anita Avendano IRON, TIBC, % SAT. (WITHOUT FERRITIN)2022-03-07 13:15:23 Test Item Value Reference Range Interpretation Comments IRON (BEAKER) (test code = 547) 75.0 ug/dL 45.0-170.0 TOTAL IRON BINDING CAPACITY 329 ug/dL 250-550 (BEAKER) (test code = 769) IRON % SATURATION (2) (BEAKER) 23 % 20-55 (test code = 2590) Hydroelectric Plant Technician ID - [id number] ID - [id number] METABOLIC [id number] 09:24:05 Test Item Value Reference Range Interpretation Comments SODIUM (BEAKER) 138 meq/L 135-148 (test code = 381) POTASSIUM (BEAKER) 4.7 meq/L 3.6-5.5 Specimen moderately (test code = 379) hemolyzed CHLORIDE (BEAKER) 106 meq/L 98-106 (test code = 382) CO2 (BEAKER) (test 22 meq/L 20-29 code = 355) BLOOD UREA NITROGEN 18 mg/dL 10-26 (BEAKER) (test code = 354) CREATININE (BEAKER) 0.78 mg/dL 0.50-1.20 Specimen moderately (test code = 358) hemolyzed GLUCOSE RANDOM 95 mg/dL 70-110 (BEAKER) (test code = 652) CALCIUM (BEAKER) 8.6 mg/dL 8.5-10.5 (test code = 697) EGFR (BEAKER) (test 98 mL/min/1.73 ESTIMA MICHAEL GFR IS code = 1092) sq m NOT ACCURATE CREATININE CLEARANCE IN PREDICTING GLOMERULAR FILTRATION RATE . ESTIMATED GFR I S NOT APPLICABLE FOR DIALYSIS PATIEN TS. Hydroelectric Plant Technician ID - DSENSONOperator ID - DSENSONOperator ID - DSENSONOperator ID - DSENSONOperator ID - DSENSONOperator ID - DSENSONOperator ID - DSENSONOperator ID - DSENSONOperator ID - DSENSONCBC W/PLT COUNT & AUTO DIFFERENTIAL 2022-03-07 09:19:49 Test Item Value Reference Range Interpretation Comments WHITE BLOOD CELL COUNT (BEAKER) 8.4 K/ L 4.0-10.0 (test code = 775) RED BLOOD CELL COUNT (BEAKER) 3.91 M/ L 4.20-5.80 L (test code = 761) HEMOGLOBIN (BEAKER) (test code = 12.2 GM/DL 13.0-16.8 L 410) HEMATOCRIT (BEAKER) (test code = 37.5 % 36.0-50.0 411) MEAN CORPUSCULAR VOLUME (BEAKER) 95.9 fL 82.0-99.0 (test code = 753) MEAN CORPUSCULAR HEMOGLOBIN 31.2 pg 27.0-33.0 (BEAKER) (test code = 751) MEAN CORPUSCULAR HEMOGLOBIN CONC 32.5 GM/DL 32.0-36.0 (BEAKER) (test code = 752) RED CELL DISTRIBUTION WIDTH 14.4 % 12.0-15.0 (BEAKER) (test code = 412) PLATELET COUNT (BEAKER) (test 188 K/CU MM 150-430 code = 756) MEAN PLATELET VOLUME (BEAKER) 11.6 fL 6.0-11.5 H (test code = 754) NUCLEATED RED BLOOD CELLS 0 /100 WBC 0-0 (BEAKER) (test code = 413) NEUTROPHILS RELATIVE PERCENT 72 % (BEAKER) (test code = 429) LYMPHOCYTES RELATIVE PERCENT 14 % (BEAKER) (test code = 430) MONOCYTES RELATIVE PERCENT 8 % (BEAKER) (test code = 431) EOSINOPHILS RELATIVE PERCENT 5 % (BEAKER) (test code = 432) BASOPHILS RELATIVE PERCENT 1 % (BEAKER) (test code = 437) NEUTROPHILS ABSOLUTE COUNT 6.00 K/ L 1.80-8.00 (BEAKER) (test code = 670) LYMPHOCYTES ABSOLUTE COUNT 1.19 K/ L 1.48-4.50 L (BEAKER) (test code = 414) MONOCYTES ABSOLUTE COUNT (BEAKER) 0.70 K/ L 0.00-1.30 (test code = 415) EOSINOPHILS ABSOLUTE COUNT 0.39 K/ L 0.00-0.50 (BEAKER) (test code = 416) BASOPHILS ABSOLUTE COUNT (BEAKER) 0.07 K/ L 0.00-0.20 (test code = 417) IMMATURE GRANULOCYTES-RELATIVE 0 % 0-0 PERCENT (BEAKER) (test code = 2801) [id number] 09:01:19 Test Item Value Reference Range Interpretation Comments MAGNESIUM (BEAKER) 2.1 mg/dL 1.5-3.0 Specimen moderately (test code = 627) hemolyzed Hydroelectric Plant Technician ID - DSENSONOperator ID - DSENSONOperator ID - DSENSONOperator ID - DSENSONHEPATIC FUNCTION [id number] 09:01:19 Test Item Value Reference Range Interpretation Comments TOTAL PROTEIN (BEAKER) 6.8 gm/dL 6.0-8.5 Speci men moderately (test code = 770) hemolyzed ALBUMIN (BEAKER) (test 3.6 g/dL 3.5-5.0 Speci men moderately code = 1145) hemolyzed BILIRUBIN TOTAL 1.2 mg/dL 0.1-1.2 Specimen mod erately (BEAKER) (test code = hemoly zed 377) BILIRUBIN DIRECT 0.5 mg/dL 0.0-0.4 H Specimen mo derately (BEAKER) (test code = hemoly zed 706) ALKALINE PHOSPHATASE 143 U/L 30-115 H (BEAKER) (test code = 346) AST (SGOT) (BEAKER) 35 U/L 5-40 Specimen moderately (test code = 353) hemolyzed ALT (SGPT) (BEAKER) 22 U/L 5-50 Specimen moderately (test code = 347) hemolyzed Hydroelectric Plant Technician ID - DSENSONOperator ID - DSENSONOperator ID - DSENSONOperator ID - DSENSONOperator ID - DSENSONOperator ID - DSENSONOperator ID - DSENSONPHOSPHORUS 2022-03-07 08:58:37 Test Item Value Reference Range Interpretation Comments PHOSPHORUS (BEAKER) 3.8 mg/dL 2.5-4.5 Specimen moderately (test code = 604) hemolyzed Hydroelectric Plant Technician ID - [id number] 10:17:00 Test Item Value Reference Range Interpretation Comments ACT-ISTAT (test code 283 SEC 74-137 H Perform 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 It is an Emergency Use Authorization ( EUA) testauthorized by the U.S. FDA. PROTHROMBIN [id number] 15:32:00 Test Item Value Reference Range Interpretation [...] o prevent recurre nt infarct). BASIC METABOLIC [id number] 15:18:00 Test Item Value Reference Range Interpretation [...] code = 9.4 mg/dL 8.0-10.5 N CA) [id number] 15:18:00 Test Item Value Reference Range Interpretation Comments PREALBUMIN (test code = PREALB) 9.9 mg/dL 16.0-40.0 L CBC W/AUTO [id number] 15:14:00 Test Item Value Reference Range Interpretation [...] NO = MDIFF) - XR CHEST 2 [id number] 00:00:00 [facility] JACOBName: BRIAN MARINELLI : 1950 Sex: M FAX: Rayray bArams III [phone] [place]: St: PRE FAX: Aubrey Duff MD [phone] Name: BRIAN MARINELLI [facility] [place] : 1950 Age/S: 71/M [address] [place] [address] Unit #: [id number] Loc: [place] [address] Phys: Aubrey Kendrick MD Acct: [id number] Dis Date: Status: [place] [facility] [place] #: [phone] Exam Date: 03/03/2022 [facility] FAX #: [phone]: PREOP EXAMS: CPT CODE: [id number] XR CHEST 2 V 48811 PROCEDURE INFORMATION: Exam: XR Chest Exam date [...] findings. IMPRESSION: No acute cardiopulmonary findings at 0734 Reported and signed by: Joey Poe D.O. CC: Rayray Hammer M.D.; Aubrey Kendrick MD Technologist: RT Erwin(R) Trnscrd Date/Time/By: 03/03/2022 (3097) : By: [email or web address] Orig Print D/T: S: 03/03/2022 (5284) PAGE 1 Signed Report TISSUE [id number] 08:12:00Surgical Pathology Report Case: [id number] Authorizing Provider: Chester Redmond MD Collected: 04/15/2021 02:56 PM Ordering Location: [address] Received: 04/16/2021 09:23 AM Service Pathologist: Liam Daniel MD Specimens: A) - Polyp, Colon - Right/Ascending, Ascending Colon Polyp with Hot Snare B) -Polyp, Colon - Sigmoid, Sigmoid Colon Polyp with Hot Snare PART A RIGHT ASCENDING COLON POLYP, POLYPECTOMY:SPECIMEN CONSISTS OF FIBRINOUS DEBRIS AND ACUTE INFLAMMATORY CELLS. PART B SIGMOID COLON POLYP, POLYPECTOMY:TUBULAR ADENOMA. Signing Pathologist Direct Phone Line: [phone] signed by Liam Daniel MD on 04/17/2021 at 8:12 [id number] BLEEDA. Ascending colonB. Sigmoid colonA. Received in [...] submitted in toto in B1.LAKSHMI Liao, HT (ASCP)[facility], Department of Pathology, [address] [place] [id number], [facility], [facility], [address] [place] [address], [facility], Department of Pathology, [address] [place] [address], QYTCM METABOLIC [id number] 07:41:00 Test Item Value Reference Range Interpretation [...] S NOT APPLICABLE FOR DIALYSIS PATIEN TS. Hydroelectric Plant Technician ID - SHANTANU [id number] 07:41:00 Test Item Value Reference Range Interpretation Comments MAGNESIUM (BEAKER) (test code = 2.2 mg/dL 1.6-2.6 627) Hydroelectric Plant Technician ID - SHANTANU LPROTHROMBIN [id number] 07:25:00 Test Item Value Reference Range Interpretation Comments PROTIME (BEAKER) 19.0 seconds 11.9-14.2 H (test code = 759) INR (BEAKER) (test 1.62 See_Comment [Automat ed message] code = 370) The system [employer] generated this result transmitted ref erence range: [...] (BEAKER) (test code = 2801) HEMOGLOBIN AND [id number] 17:06:00 Test Item Value Reference Range Interpretation Comments HEMOGLOBIN (BEAKER) (test code = 7.6 GM/DL 13.7-17.5 L 410) HEMATOCRIT (BEAKER) (test code = 26.3 % 40.1-51.0 L 411) Hydroelectric Plant Technician ID - 6000PERIPHERAL BLOOD SMEAR - PATHOLOGIST [id number] 13:01:00 Test Item Value Reference Range Interpretation Comments RBC MORPHOLOGY Anisocytosis (BEAKER) (test code = 2846) RBC MORPHOLOGY Poikilocytosis (BEAKER) (test code = 60559) RBC MORPHOLOGY Hypochromasia (BEAKER) (test code = 52021) PERIPHERAL SMR REVIEW Cell counts confirmed. (BEAKER) (test code = 2640) [id number] Reva Jimenez M.D. (BEAKER) (test code = (electronic signature) 4132) HEPATITIS PANEL, [id number] 11:48:00 Test Item Value Reference Range Interpretation Comments HEPATITIS A IGM ANTIBODY (BEAKER) Nonreactive Nonreactive (test code = 498) HEPATITIS B CORE IGM ANTIBODY Nonreactive Nonreactive (BEAKER) (test code = 645) HEPATITIS C ANTIBODY (BEAKER) Nonreactive Nonreactive (test code = 367) HEPATITIS B SURFACE ANTIGEN (2) Nonreactive Nonreactive (BEAKER) (test code = 2585) Hydroelectric Plant Technician ID - AAHAMIDHEPATITIS C [id number] 11:48:00 Test Item Value Reference Range Interpretation Comments HEPATITIS C ANTIBODY (BEAKER) Nonreactive Nonreactive (test code = 367) [id number] 08:57:00 Test Item Value Reference Range Interpretation Comments MAGNESIUM (BEAKER) (test code = 2.1 mg/dL 1.6-2.6 627) Hydroelectric Plant Technician ID - AAHAMIDBASIC METABOLIC [id number] 05:57:00 Test Item Value Reference Range Interpretation [...] S NOT APPLICABLE FOR DIALYSIS PATIEN TS. Hydroelectric Plant Technician ID - SHAHEED WSpecimen slightly ictericLACTATE DEHYDROGENASE (LDH) 2021-04-15 05:57:00 Test Item Value Reference Range Interpretation Comments LACTATE DEHYDROGENASE (BEAKER) (test 194 U/L 125-220 code = 635) Hydroelectric Plant Technician ID - SHAHEED [id number] 05:52:00 Test Item Value Reference Range Interpretation Comments HAPTOGLOBIN (BEAKER) (test code = 136 mg/dL 14-258 366) Hydroelectric Plant Technician ID Chiquis HUMMEL WCBC W/PLT COUNT & AUTO [id number] 05:50:00 Test Item Value Reference Range Interpretation [...] PERCENT (BEAKER) (test code = 2801) PROTHROMBIN [id number] 05:50:00 Test Item Value Reference Range Interpretation Comments PROTIME (BEAKER) 17.8 seconds 11.9-14.2 H (test code = 759) INR (BEAKER) (test 1.49 See_Comment [Automat ed message] code = 370) The system [employer] generated this result transmitted ref erence range: <=5.90. The reference range was not used to int erpret this result as normal/abnormal . RECOMMENDED COUMADIN/WARFARIN INR THERAPY RANGESSTANDARD DOSE: 2.0 - 3.0 Includes: PROPHYLAXIS forvenous thrombosis, systemic embolization; TREATMENT for venous thrombosis and/or pulmonary embolus.HIGH RISK: Target INR is 2.5-3.5 for patients with mechanical heart valves.HEMOGLOBIN AND [id number] 14:50:00 Test Item Value Reference Range Interpretation Comments HEMOGLOBIN (BEAKER) (test code = 7.8 GM/DL 13.7-17.5 L 410) HEMATOCRIT (BEAKER) (test code = 25.7 % 40.1-51.0 L 411) Hydroelectric Plant Technician ID - [id number] FUNCTION [id number] 10:19:00 Test Item Value Reference Range Interpretation [...] (test code = 28 U/L 6-55 347) Hydroelectric Plant Technician ID - ALEXYS Varner slightly ictericGAMMA GLUTAMYL TRANSFERASE (GGT) 2021-04-14 10:19:00 Test Item Value Reference Range Interpretation Comments GAMMA GLUTAMYL TRANSFERASE (BEAKER) 82 U/L 9-64 H (test code = 364) Hydroelectric Plant Technician ID Chiquis Varner slightly ictericBASIC METABOLIC [id number] 05:40:00 Test Item Value Reference Range Interpretation [...] S NOT APPLICABLE FOR DIALYSIS PATIEN TS. Hydroelectric Plant Technician ID - SHAHEED PRIESTpecimeshabana slightly ictericPROTHROMBIN [id number] 05:22:00 Test Item Value Reference Range Interpretation Comments PROTIME (BEAKER) 19.4 seconds 11.9-14.2 H (test code = 759) INR (BEAKER) (test 1.67 See_Comment [Automat ed message] code = 370) The system [employer] generated this result transmitted ref erence range: [...] (BEAKER) (test code = 2801) U/S, ABDOMINAL, [id number] 02:12:00Abdomen limited area? Add comment if clarification is needed.->Right upper quadrantReason for exam:->Elevated INR, elevated bilirubin [facility] : 1950 Sex: MFINAL [...] Everett [place] Verified Date/Time: 04/14/2021 02:12:11 SARS-COV2/RT-PCR ([facility])2021-04-13 18:18:00 Test Item Value Reference Range Interpretation Comments SARS-COV2/RT-PCR (test Negative Not Detected, Negative, code = 7573735) See external report for linked test SARS-COV-[address] [facility] (test code = 5975579) Negative result for this test determines that [...] 564(g) of the Act.Fact Sheet for Healthcare Providers:https://www.[employer].com/sites/default/files/product/documents/Fact_Shee p_KH_Oarliofza_Vrku_ILFD-QeU-0.pdfFact Sheet for Healthcare Patients:https://www.[employer].Webflakes/sites/default/files/product/ documents/Sjfx_Zzumy_Bfxdcjkg_Uqcy_RIOY-FbA-5.pdfPerforming Laboratory:[facility], [place] [address]JCQKIQNXQB AND [id number] 17:52:00 Test Item Value Reference Range Interpretation Comments HEMOGLOBIN (BEAKER) (test code = 6.4 GM/DL 13.7-17.5 L 410) HEMATOCRIT (BEAKER) (test code = 21.8 % 40.1-51.0 L 411) Hydroelectric Plant Technician ID - [id number] [id number] 12:34:00 Test Item Value Reference Range Interpretation Comments RETICULOCYTE COUNT PCT (BEAKER) (test 1.9 % 0.5-1.8 H code = 575) Hydroelectric Plant Technician ID - 6000Operator ID - [id number], TIBC, % SAT. (WITHOUT FERRITIN) 2021-04-13 12:21:00 Test Item Value Reference Range Interpretation Comments IRON (BEAKER) (test code = 547) 14.0 ug/dL 40.0-160.0 L TOTAL IRON BINDING CAPACITY 448 ug/dL 250-450 (BEAKER) (test code = 769) IRON % SATURATION (2) (BEAKER) 3 % 20-55 L (test code = 2590) Hydroelectric Plant Technician ID - ADMINVITAMIN B12 AND [id number] 12:07:00 Test Item Value Reference Range Interpretation Comments VITAMIN B12 1427 pg/mL 213-816 H (BEAKER) (test code = 774) FOLATE (BEAKER) 14.40 ng/mL See_Comment [Automated message] (test code = 362) The system which generated this result transmitted ref erence range: >=7.00. The reference range was not used to interpr et this result as normal/abnormal . Hydroelectric Plant Technician ID - [id number] 12:07:00 Test Item Value Reference Range Interpretation Comments FERRITIN (BEAKER) (test code = 6.43 ng/mL 5.00-275.00 361) Hydroelectric Plant Technician ID - ADMINPROTHROMBIN TIME/[id number] 11:33:00 Test Item Value Reference Range Interpretation Comments PROTIME (BEAKER) 24.2 seconds 11.9-14.2 H (test code = 759) INR (BEAKER) (test 2.20 See_Comment [Automat ed message] code = 370) The system [employer]: [employer] h generated this result transmitted ref erence range: <=5.90. The reference range was not used to int erpret this result as normal/abnormal . RECOMMENDED COUMADIN/WARFARIN INR THERAPY RANGESSTANDARD DOSE: 2.0 - 3.0 Includes: PROPHYLAXIS forvenous thrombosis, systemic embolization; TREATMENT for venous thrombosis and/or pulmonary embolus.HIGH RISK: Target INR is 2.5-3.5 for patients with mechanical heart valves.[id number] 10:51:00 Test Item Value Reference Range Interpretation Comments MAGNESIUM (BEAKER) (test code = 2.1 mg/dL 1.6-2.6 627) Hydroelectric Plant Technician ID - BSBASIC METABOLIC [id number] 07:25:00 Test Item Value Reference Range Interpretation [...] S NOT APPLICABLE FOR DIALYSIS PATIEN TS. Hydroelectric Plant Technician ID - BSHEPATIC FUNCTION [id number] 07:25:00 Test Item Value Reference Range Interpretation [...] (test code = 24 U/L 6-55 347) Hydroelectric Plant Technician ID - BSCBC W/PLT COUNT & AUTO [id number] 06:55:00 Test Item Value Reference Range Interpretation [...] PERCENT (BEAKER) (test code = 2801) PROTHROMBIN [id number] 06:38:00 Test Item Value Reference Range Interpretation Comments PROTIME (KOMAL) 25.9 seconds 11.9-14.2 H (test code = 759) INR (BEAKER) (test 2.40 See_Comment [Automat ed message] code = 370) The system [employer] generated this result transmitted ref erence range: <=5.90. The reference range was not used to int erpret this result as normal/abnormal . RECOMMENDED COUMADIN/WARFARIN INR THERAPY RANGESSTANDARD DOSE: 2.0 - 3.0 Includes: PROPHYLAXIS forvenous thrombosis, systemic embolization; TREATMENT for venous thrombosis and/or pulmonary embolus.HIGH RISK: Target INR is 2.5-3.5 for patients with mechanical heart valves.
[2022-03-09] MEDS ORDERED: NA CHLORIDE 0.9% 1,000 ML ONE (13:59)
[2022-03-09] MEDS ORDERED: ONDANSETRON 4 MG/2 ML VIAL ONE (13:59)
[2022-03-09] MEDS ORDERED: HYDROMORPHONE HCL 1 MG/ML INJ ONE ×2 (13:59→16:14)
[2022-03-09 14:18] LABS: Absolute Lymphocytes (CBC) 0.6 K/uL (0.7-4.9); Hematocrit 41.8 % (39.6-49.0); Lymphocytes % 9.9 % (15.3-44.8); MPV 8.9 fL (7.6-11.3); RBC Red Blood Cell Count 4.49 M/uL (4.33-5.43)
[2022-03-09 14:34] LABS: Albumin 3.2 g/dL (3.4-5.0); Bilirubin Total 1.8 mg/dL (0.2-1.0); Potassium 3.7 mmol/L (3.5-5.1); Protein, Total 6.7 g/dL (6.4-8.2)
--- NOTE | 2022-03-09 15:15 | RAD REPORT ---
EXAM DESCRIPTION: CT - Abdomen Pelvis W Contrast - 03/09/2022 2:52 pm CLINICAL HISTORY: Abdominal pain, acute, nonlocalized, neutropenic COMPARISON: Abdomen Pelvis W Contrast dated 03/06/2022; Angio Aorta For Dissection dated 02/10/2022 TECHNIQUE: Biphasic, helical CT imaging of the abdomen and pelvis was performed following 100 ml non -ionic IV contrast. No oral contrast administered. All CT scans are performed using dose optimization technique as appropriate and may include automated exposure control or mA/KV adjustment according to patient size. FINDINGS: No acute pleural or parenchymal finding seen. Cardiomegaly is present with prominent enlar gement of the right atrium. IVC from atrium into the liver is dilated. Liver shows a mottled enhancement pattern with liver capsule nodularity. No portal vein thrombus. A s uspicious focal liver lesion is not seen. This is probably an enhancement artifact related to diminis hed cardiac function. No splenomegaly or focal splenic finding. No pancreatic abnormality seen. Cholecystectomy clips are p resent. No abnormal biliary tree dilatation. Symmetric renal function is seen with no hydronephrosis or suspicious renal mass. No pyelonephritis o r acute parenchymal process. No bladder abnormalities. Urinary bladder is mostly contracted limiting assessment. No gastric dilatation or gastric wall thickening. Small bowel loops are not dilated. Moderate stool v olume scattered in the colon. There is prominent sigmoid diverticulosis without acute diverticulitis. Moderately large right inguinal hernia is present containing loops of small bowel. [place] are mildly prominent within the herniated bowel. Ascites extends into the right-side scrotum causing significant dilatation. Moderate ascites present in the abdomen and pelvis. Omental fat is congested and [place] us. No free air or pneumatosis. No bulky lymphadenopathy. Disc and bone degenerative changes are present. Phleboliths are seen along the pelvic floor. Prominen t arterial tree calcifications are seen. IMPRESSION: Large right inguinal hernia containing loops of small bowel and large amount of ascites distending the right gemini scrotum. [place] of the herniated bowel appear mildly prominent. This pattern is not significantly different from March 06 and not specific for strangulated or incarcerated hernia. Correlation is needed with any localizing symptoms. Cardiomegaly seen predominantly as right-sided chamber enlargement. Superior portion of the IVC is di lated. This matches comparison. Cirrhotic liver changes with heterogeneous enhancement believed to be secondary to decreased cardiac function. Ascites similar to prior imaging. Diverticulosis similar to prior imaging. General prominence of the bowel also similar to comparison.
[2022-03-09] MEDS ORDERED: ONDANSETRON 4 MG/2 ML VIAL IV PRN (17:50)
[2022-03-09] MEDS ORDERED: ACETAMINOPHEN 500 MG TAB PO PRN (17:50)
--- NOTE | 2022-03-09 18:36 | ER ---
Nurse's Notes [facility] Name: Deonte Rojo Age: 71 yrs Sex: Male : 1950 Arrival Date: 03/09/2022 Time: 13:27 Bed 8 Private MD: Diagnosis: Unilateral inguinal hernia, without obstruction or gangrene Presentation: 03/09 13:38 Acuity: BRODERICK 2 ss 13:38 Chief complaint: Patient states: Abd pain and hernia pain started on car ride home from [address] Coronavirus screen: Vaccine status: Patient reports receiving the 2nd dose of the covid vaccine. Client denies travel out of the [place] in the last 14 days. At this time, the client does not indicate any symptoms associated with coronavirus-19. Ebola Screen: Patient denies travel to an Ebola-affected area in the 21 days before illness onset. Initial Sepsis Screen: Does the patient meet any 2 criteria? No. Patient's initial sepsis screen is negative. Does the patient have a suspected source of infection? Yes: Acute abdominal pain. Risk Assessment: Do you want to hurt yourself or someone else? Patient reports no desire to harm self or others. Onset of symptoms was March 09, 2022. 13:38 Method Of Arrival: Wheelchair [facility] 13:38 Acuity: BRODERICK 3 1 Triage Assessment: 13:40 General: Appears uncomfortable, Behavior is cooperative, appropriate for age. Pain: [facility] Complains of pain in abdomen. GI: Reports upper abdominal pain, nausea, vomiting. : Reports R inguinal hernia pain. Historical: - Allergies: 13:38 Codeine; ll1 - PMHx: 13:38 Atrial Fib; GI Bleed; Hernia; Hyperlipidemia; Hypertension; 1 - PSHx: 13:38 Unable to Obtain; 1 - Immunization history:: Client reports receiving the 2nd dose of the Covid vaccine. - Social history:: Smoking status: Patient denies any tobacco usage or history of. Patient/guardian denies using alcohol, street drugs, The patient lives with family. - Family history:: not pertinent. Screenin:40 Abuse screen: Denies threats or abuse. Nutritional screening: No deficits noted. ll1 Tuberculosis screening: No symptoms or risk factors identified. 20:15 Fall Risk None identified. as6 Assessment: 14:05 General: Appears uncomfortable, ill, Behavior is cooperative, appropriate for age. ll1 Pain: Complains of pain in abdomen Quality of pain is described as aching, crampy. 14:27 Reassessment: No changes from previously documented assessment. Dr. Jung at bedside. ll1 15:00 Reassessment: No changes from previously documented assessment. Patient and/or family ll1 updated on plan of care and expected duration. Pain level reassessed. Patient is alert, oriented x 3, equal unlabored respirations, skin warm/dry/pink. 16:00 Reassessment: No changes from previously documented assessment. Patient and/or family ll1 updated on plan of care and expected duration. Pain level reassessed. Patient is alert, oriented x 3, equal unlabored respirations, skin warm/dry/pink. Vital Signs: 13:38 BP 144 / 86; Pulse 97; Resp 18; Temp 97.5; Weight 72.57 kg; Height 6 ft. 1 in. (185.42 ll1 cm); Pain 9/10; 14:08 BP 133 / 84; Pulse 95; Resp 18; Pulse Ox 96% ; ll1 16:44 BP 114 / 72; Pulse 92; Resp 17; ll1 17:41 BP 96 / 62; Pulse 89; Resp 17; ll1 20:00 BP 106 / 65; Pulse 96; Resp 19 S; Pulse Ox 97% on R/A; as6 13:38 Body Mass Index 21.11 (72.57 kg, 185.42 cm) ll1 ED Course: 13:27 Patient arrived in ED. ds1 13:33 Coleman Jung MD is Attending Physician. ma2 13:38 Shayla Gamboa, GERMAINE is Primary Nurse. ll1 13:38 Triage completed. ss 13:38 Arm band placed on Patient placed in an exam room, on a stretcher. ll1 13:40 Patient has correct armband on for positive identification. Call light in reach. Side ll1 rails up X2. Client placed on continuous cardiac and pulse oximetry monitoring. NIBP monitoring applied. 13:59 Inserted saline lock: 20 gauge in right forearm, using aseptic technique. zm 14:54 CT Abd/Pelvis - IV Contrast Only In Process Unspecified. EDMS 18:36 Coleman Yo MD is Hospitalizing Provider. ma2 20:14 No provider procedures requiring assistance completed. Patient admitted, IV remains in as6 place. Administered Medications: 13:53 Not Given (Patient Refused): morphine 4 mg IVP once ma2 13:56 Drug: NS 0.9% 1000 ml Route: IV; Rate: 1 bolus; Site: right forearm; ll1 16:44 Follow up: Response: No adverse reaction; IV Status: Completed infusion; IV Intake: ll1 1000ml 13:57 Drug: Zofran (Ondansetron) 4 mg Route: IVP; Site: right forearm; ll1 16:44 Follow up: Response: No adverse reaction; Nausea is decreased ll1 13:59 Drug: Dilaudid (HYDROmorphone) 1 mg Route: IVP; Site: right forearm; ll1 16:44 Follow up: Response: No adverse reaction; Pain is decreased; RASS: Alert and Calm (0) ll1 16:43 Drug: Dilaudid (HYDROmorphone) 1 mg {Note: rass 0, pain 9/10.} Route: IVP; Site: right ll1 antecubital; 20:16 Follow up: Response: No adverse reaction; RASS: Alert and Calm (0) as6 Medication: 13:40 VIS not applicable for this client. ll1 Intake: 16:44 IV: 1000ml; Total: 1000ml. ll1 Outcome: 18:36 Decision to Hospitalize by Provider. ma2 20:15 Admitted to Med/surg accompanied by tech, via stretcher, room 221, with chart. as6 20:15 Condition: stable 20:15 Instructed on the need for admit. 20:16 Patient left the ED. as6 Signatures: Dispatcher [employer] [facility] Constance Willoughby ds1 Anushka Julio RN RN ss Alzahri, Mohammad, MD MD ma2 Shayla Gamboa RN RN ll1 Ford Coon RN RN as6 Gloria Romero Corrections: (The following items were deleted from the chart) 13:38 13:38 PSHx: None; ll1 ll1
--- NOTE | 2022-03-09 18:36 | EDPHYS ---
Physician Documentation [facility] Name: Deonte Rojo Age: 71 yrs Sex: Male : 1950 Arrival Date: 03/09/2022 Time: 13:27 Bed 8 Private MD: ED Physician Coleman Jung HPI: 03/09 14:39 This 71 yrs old Male presents to ER via Wheelchair with complaints of Abdominal Pain. ma2 14:39 This is a 71-year-old male history of right inguinal hernia repair who was transferred ma2 from our hospital recently to the [employer] [facility] for incarcerated hernia, patient was admitted for few days where hernia was reduced by the patient himself, he had normal bowel movement patient was discharged 3 hours ago, on his way driving home he had the hernia out again presents with right inguinal hernia that is unable to push back pain started an hour ago.. Historical: - Allergies: 13:38 Codeine; ll1 - PMHx: 13:38 Atrial Fib; GI Bleed; Hernia; Hyperlipidemia; Hypertension; ll1 - PSHx: 13:38 Unable to Obtain; ll1 - Immunization history:: Client reports receiving the 2nd dose of the Covid vaccine. - Social history:: Smoking status: Patient denies any tobacco usage or history of. Patient/guardian denies using alcohol, street drugs, The patient lives with family. - Family history:: not pertinent. ROS: 14:39 Constitutional: Negative for fever, chills, and weight loss. ma2 14:39 All other systems are negative. Exam: 14:39 Constitutional: This is a well developed, well nourished patient who is awake, alert, ma2 and in no acute distress. Head/Face: Normocephalic, atraumatic. Eyes: Pupils equal round and reactive to light, extra-ocular motions intact. Lids and lashes normal. Conjunctiva and sclera are non-icteric and not injected. Cornea within normal limits. Periorbital areas with no swelling, redness, or edema. ENT: Nares patent. No nasal discharge, no septal abnormalities noted. Tympanic membranes are normal and external auditory canals are clear. Oropharynx with no redness, swelling, or masses, exudates, or evidence of obstruction, uvula midline. Mucous membranes moist. Neck: Trachea midline, no thyromegaly or masses palpated, and no cervical lymphadenopathy. Supple, full range of motion without nuchal rigidity, or vertebral point tenderness. No Meningismus. Chest/axilla: Normal chest wall appearance and motion. Nontender with no deformity. No lesions are appreciated. Cardiovascular: Regular rate and rhythm with a normal S1 and S2. No gallops, murmurs, or rubs. Normal PMI, no JVD. No pulse deficits. Respiratory: Lungs have equal breath sounds bilaterally, clear to auscultation and percussion. No rales, rhonchi or wheezes noted. No increased work of breathing, no retractions or nasal flaring. Back: No spinal tenderness. No costovertebral tenderness. Full range of motion. Male : Normal genitalia with no discharge or lesions. 14:39 Neuro: Awake and alert, GCS 15, oriented to person, place, time, and situation. Cranial nerves II-XII grossly intact. Motor strength 5/5 in all extremities. Sensory grossly intact. Cerebellar exam normal. Normal gait. 14:39 Abdomen/GI: Exam negative for distension, splenomegaly, Inspection: abdomen appears normal, Bowel sounds: normal, Palpation: soft, Rectal exam: Liver: no appreciated palpable abnormalities, Hernia: noted in the right femoral area, incarceration, that is moderate, tenderness, that is moderate, bowel sounds are appreciated on auscultation. Vital Signs: 13:38 BP 144 / 86; Pulse 97; Resp 18; Temp 97.5; Weight 72.57 kg; Height 6 ft. 1 in. (185.42 ll1 cm); Pain 9/10; 14:08 BP 133 / 84; Pulse 95; Resp 18; Pulse Ox 96% ; ll1 16:44 BP 114 / 72; Pulse 92; Resp 17; ll1 17:41 BP 96 / 62; Pulse 89; Resp 17; ll1 20:00 BP 106 / 65; Pulse 96; Resp 19 S; Pulse Ox 97% on R/A; as6 13:38 Body Mass Index 21.11 (72.57 kg, 185.42 cm) ll1 MDM: 13:36 Patient medically screened. ma2 16:35 Differential diagnosis: nonspecific abdominal pain, urinary retention, prostatitis, ma2 urethritis. Data reviewed: vital signs, nurses notes. Counseling: I had a detailed discussion with the patient and/or guardian regarding: the historical points, exam findings, and any diagnostic results supporting the discharge/admit diagnosis, the presence of at least one elevated blood pressure reading (>120/80) during this emergency department visit, the need for outpatient follow up. Response to treatment: the patient's symptoms have markedly improved after treatment. ED course: 71-year-old male, CT shows hernia right inguinal indirect, no signs of strangulation, discussed with Dr. Iraheta who came to the bedside to evaluate the patient, the patient was able to push the hernia himself Dr. Harris advised to request medical team to admit the patient advised for EKG and prep for surgery tomorrow, cardiac consult for clearance. 03/09 13:44 Order name: CBC with Diff; Complete Time: 16: [facility] 03/09 13:44 Order name: CMP; Complete Time: 16: [facility] 03/09 13:44 Order name: Lipase; Complete Time: 16: [facility] 03/09 13:44 Order name: Urine Microscopic Only [facility] 03/09 16:35 Order name: SARS-COV-2 RT PCR (Document "Date of Onset" if Symptomatic); Complete Time: 18:47 03/09 17:55 Order name: CBC with Automated Diff [facility] 03/09 17:55 Order name: CBC with Automated Diff [facility] 03/09 17:55 Order name: Comprehensive Metabolic Panel [facility] 03/09 17:55 Order name: Comprehensive Metabolic Panel [facility] 03/09 17:55 Order name: Magnesium [facility] 03/09 17:55 Order name: Magnesium [facility] 03/09 17:55 Order name: NT PRO-BNP [facility] 03/09 17:55 Order name: NT PRO-BNP [facility] 03/09 17:55 Order name: Protime (+INR) [facility] 03/09 13:44 Order name: CT Abd/Pelvis - IV Contrast Only; Complete Time: 16:01 [facility] 03/09 16:31 Order name: EKG; Complete Time: 16:31 [facility] 03/09 17:55 Order name: CONS Physician Consult [facility] 03/09 17:55 Order name: CONS Physician Consult [facility] 03/09 17:55 Order name: Echo with Doppler [facility] 03/09 17:55 Order name: Echo with Doppler [facility] 03/09 17:55 Order name: Protime (+INR) ED[facility] 03/09 17:55 Order name: PTT, Activated Partial Thromb [facility] 03/09 17:55 Order name: PTT, Activated Partial Thromb [facility] 03/09 17:55 Order name: Troponin High Sensitivity [facility] 03/09 17:55 Order name: Troponin High Sensitivity [facility] 03/09 13:44 Order name: IV Saline Lock; Complete Time: 14:00 dc2 03/09 13:44 Order name: Labs collected and sent; Complete Time: 13:59 dc2 03/09 17:55 Order name: NPO EDGA Administered Medications: 13:53 Not Given (Patient Refused): morphine 4 mg IVP once ma2 13:56 Drug: NS 0.9% 1000 ml Route: IV; Rate: 1 bolus; Site: right forearm; ll1 16:44 Follow up: Response: No adverse reaction; IV Status: Completed infusion; IV Intake: ll1 1000ml 13:57 Drug: Zofran (Ondansetron) 4 mg Route: IVP; Site: right forearm; ll1 16:44 Follow up: Response: No adverse reaction; Nausea is decreased 1 13:59 Drug: Dilaudid (HYDROmorphone) 1 mg Route: IVP; Site: right forearm; ll1 16:44 Follow up: Response: No adverse reaction; Pain is decreased; RASS: Alert and Calm (0) ll1 16:43 Drug: Dilaudid (HYDROmorphone) 1 mg {Note: rass 0, pain 9/10.} Route: IVP; Site: right ll1 antecubital; 20:16 Follow up: Response: No adverse reaction; RASS: Alert and Calm (0) as6 Disposition Summary: 03/09/22 18:36 Hospitalization Ordered Hospitalization Status: Inpatient Admission ma2 Provider: Coleman Yo Location: Telemetry/MedSurg (Inpatient) ma2 Condition: Stable ma2 Problem: new ma2 Symptoms: are unchanged ma2 Bed/Room Type: Standard [facility] Room Assignment: [facility](03/09/22 18:59) Diagnosis - Unilateral inguinal hernia, without obstruction or gangrene ma2 Forms: - Medication Reconciliation Form ma2 - SBAR form ma2 Signatures: Dispatcher [employer] Kadi Mejias RN RN Coleman Gambino MD MD ma2 Shayla Gamboa RN RN ll1 Karrie Rose PA PA sb3 Ford Coon RN as6 Corrections: (The following items were deleted from the chart) 13:38 13:38 PSHx: None; ll1 ll1 18:59 18:36 isabel michele
[2022-03-09] MEDS: NA CHLORIDE 0.9% 1,000 ML IV SCH (20:35)
[2022-03-09] MEDS: CEFAZOLIN 1 GM in NA CHLORIDE 0.9% 50 ML IVPB SCH (20:36)
[2022-03-09] MEDS: HYDROMORPHONE HCL 0.5 MG/0.5 ML INJ IV PRN (20:52)
[2022-03-09 21:55] VITALS: BMI 22.6
[2022-03-10] MEDS: CEFAZOLIN 1 GM in NA CHLORIDE 0.9% 50 ML IVPB SCH ×3 (00:34→17:00)
[2022-03-10] MEDS: HYDROMORPHONE HCL 0.5 MG/0.5 ML INJ IV PRN ×4 (01:14→22:02)
[2022-03-10 04:41] LABS: Absolute Lymphocytes (CBC) 1.2 K/uL (0.7-4.9); Hematocrit 34.6 % (39.6-49.0); Lymphocytes % 17.1 % (15.3-44.8); MPV 8.7 fL (7.6-11.3); RBC Red Blood Cell Count 3.82 M/uL (4.33-5.43)
[2022-03-10 04:42] LABS: Protime INR 1.43
[2022-03-10 05:01] LABS: Albumin 2.8 g/dL (3.4-5.0); Potassium 3.9 mmol/L (3.5-5.1); Protein, Total 5.8 g/dL (6.4-8.2)
--- NOTE | 2022-03-10 05:16 | P.HP ---
Certification for Inpatient Patient admitted to: Inpatient With expected LOS: >2 Midnights Patient will require the following post-hospital care: None Practitioner: I am a practitioner with admitting privileges, knowledge of patient current condition, hospital course, and medical plan of care. Services: Services provided to patient in accordance with Admission requirements found in Title 42 Section 412.3 of the Code of Federal Regulations Patient History Date of Service: 03/09/22 Reason for admission: Incarcerated right sided umbilical hernia History of Present Illness: Patient is a 71-year-old gentleman who presented to the hospital with incarcerated right inguinal hernia. The patient was having severe pain and came to the hospital for further evaluation. Patient's hernia was reduced by general surgeon. However, in light of the fact that the inguinal hernia has had repeated episodes of strangulation patient will be admitted for surgical intervention. We will consult Cardiology for cardiac clearance. Patient recently had Watchman procedure per Dr. Kendrick. Eliquis has been on hold for 4 days. Proceed with surgery if okay with Cardiology. Allergies No Known Allergies Allergy (Verified 02/05/21 13:47) Home Medications: Atenolol [Tenormin] 100 mg PO DAILY 02/05/21 Azelastine [Astelin 137MCG/Metered [place]*] 137 mcg NS BID 02/05/21 Fluticasone [Flovent Hfa 110*] 2 sprays IH BIDP PRN 02/05/21 Irbesartan 150 mg PO DAILY 02/05/21 Multivitamin/Iron/Folic Acid [Centrum Adults Tablet] 1 each PO DAILY 02/05/21 Rosuvastatin Calcium [Crestor] 20 mg PO BEDTIME 02/05/21 Vit A/Vit C/Vit E/Zinc/Copper [Eye Multivitamin Tablet] 2 each PO BEDTIME 02/05/21 Apixaban [Eliquis] 5 mg PO BID 02/11/22 Furosemide [Lasix] 20 mg PO DAILY 02/11/22 Potassium Chloride 1 tab PO DAILY 02/11/22 Hydrocodone 5/APAP 325 [[place] 5/325] 1 tab PO Q8H PRN #15 tab 02/14/22 - Past Medical/Surgical History Has patient received pneumonia vaccine in the past: Yes Diabetic: No -: Atrial fibrillation on chronic anticoagulation therapy -: Hypertension -: Hyperlipidemia -: GI bleed -: Hernia repair x2 -: gallbladder surgery Psychosocial/ Personal History: Patient lives at home with his - Family History Father Family History: Reviewed- Non-Contributory - Social History Smoking Status: Never smoker Alcohol use: No CD- Drugs: No Caffeine use: Yes Place of Residence: Home Review of Systems 10-point ROS is otherwise unremarkable Physical Examination - Vital Signs Temperature: 97.6 F Blood Pressure: 95/57 Pulse: 65 Respirations: 17 Pulse Ox (%): 97 - Physical Exam General: Alert, In no apparent distress, Oriented x3 HEENT: Atraumatic, PERRLA, Mucous membr. moist/pink, EOMI, Sclerae nonicteric Neck: Supple, 2+ carotid pulse no bruit, No LAD, Without JVD or thyroid abno rmality Respiratory: Clear to auscultation bilaterally, Normal air movement Cardiovascular: Regular rate/rhythm, Normal S1 S2, Systolic murmur Gastrointestinal: Normal bowel sounds, Soft and benign, Non-distended, No tenderness Musculoskeletal: No tenderness Integumentary: No rashes Neurological: Normal gait, Normal speech, Normal strength at 5/5 x4 extr, Normal tone, Normal affect Lymphatics: No axilla or inguinal lymphadenopathy - Studies Laboratory Data (last 24 hrs) 03/09/22 14:08: Sodium 137, Potassium 3.7, BUN 18, Creatinine 0.96, Glucose 106, Total Bilirubin 1.8 H, AST 20, ALT 21, Alkaline Phosphatase 147 H, Lipase 87 03/09/22 14:08: WBC 6.5 D, Hgb 13.4 L, Hct 41.8, Plt Count 150 L Assessment & Plan - Problems (Diagnosis) (1) Incarcerated right inguinal hernia Current Visit: Yes Status: Acute (2) Atrial fibrillation Current Visit: Yes Status: Acute (3) Presence of Watchman left atrial appendage closure device Current Visit: Yes Status: Acute (4) HTN (hypertension) Current Visit: Yes Status: Acute - Plan -management per surgery -Await cardiac clearance -DVT prophylaxis -IV hydration and IV antibiotics -advanced diet as tolerated -strict blood pressure and blood sugar control -monitor electrolytes and blood count closely -pain control Discharge Plan: Home Plan to discharge in: Greater than 2 days - Advance Directives Does patient have a Living Will: No Does patient have a Durable POA for Healthcare: No - Code Status/Comfort Care Code Status Assessed: Yes Code Status: Full Code Critical Care: No Time Spent Managing PTS Care (In Minutes): 45
[2022-03-10] MEDS ORDERED: FLUTICASONE IH PRN (06:41)
[2022-03-10] MEDS ORDERED: HYDROCODONE/APAP 5/325 MG TAB PO PRN (06:41)
[2022-03-10] MEDS: POTASSIUM CL SA 10 MEQ TAB PO SCH (09:00)
[2022-03-10] MEDS ORDERED: VALSARTAN 80 MG TAB PO SCH (09:00)
[2022-03-10] MEDS: atenoloL 50 MG TAB PO SCH (09:00)
[2022-03-10] MEDS ORDERED: FUROSEMIDE 20 MG TABLET PO SCH (09:00)
[2022-03-10] MEDS: NA CHLORIDE 0.9% 1,000 ML IV SCH (09:45)
--- NOTE | 2022-03-10 11:25 | EKG ---
Test Date: 2022-03-09 Test Time: 16:59:18 Real Estate Assessor: VIDHI MEASUREMENT RESULTS: Intervals: Rate: 89 CT: QRSD: 104 QT: 384 QTc: 467 [place]: P: CT: QRS: 92 T: 42 INTERPRETIVE STATEMENTS: Undetermined rhythm Rightward axis Borderline ECG Compared to ECG 02/10/2022 23:41:50 Right-axis deviation now present Atrial fibrillation no longer present T-wave abnormality no longer present Prolonged QT interval no longer present Electronically Signed On 03-10-22 11:23:23 CDT by Paddy Sanz
[2022-03-10] MEDS ORDERED: CEFAZOLIN SODIUM 1 GM/VIAL ONE (13:32)
[2022-03-10] MEDS ORDERED: Ringers Lactate 1,000 ML IV ONE (13:39)
--- NOTE | 2022-03-10 13:42 | P.CNS ---
Date of Consult: 03/10/22 PC: This patient, who is 71 years old, presented to the emergency room yesterday with an incarcerated right inguinal hernia. HPC: Patient has been here apparently last week. At that time was found to have an incarcerated hernia but also complicated by GI bleed. He was transferred to a higher level of care. He had a work-up which was negative for the source of his GI bleed. His hernia had been reduced, and was hoped to be fixed on a elective basis. The patient however as he was leaving the hospital car park apparently coughed or sneezed, had recurrence of his hernia. His drove at a high rate of speed to the [facility] emergency room where he presented for diagnosis and treatment. PSHx: Patient has had a previous umbilical hernia repair with mesh, a previous right inguinal hernia done open. PMHx: History of bleeding from unknown source, numerous scopes, atrial fibrillation, and heart issues Social Hx: Allergic to codeine, on Eliquis [apparently has been stopped] Sys R: Awake alert vital signs are stable, since hernia is reduced, has not been in any pain. Denies any cough or wheeze. Says however he does have severe allergies that caused him to sneeze uncontrollably. O/E: Awake alert vital signs are stable HEENT: Not jaundiced Chest: Chest movement equal bilaterally Abd: Patient's right inguinal hernia is reduced at this time [place]: Intact Data: CT scan from previous demonstrates large right inguinal recurrent hernia Impression: Incarcerated right inguinal hernia Plan: This patient, every time he stands, his hernia drops down, and he is unable to reduce it. He was in severe pain yesterday. The hernia was finally reduced by himself in the ER. When I saw him it was soft, back in the abdominal cavity. I have discussed with him the risks of the procedures. The possibility of bleeding, infection, injury to bowel blood vessels and surrounding structures. Difficulty with urination, postoperative pain, and once again recurrence were explained. He understands and wants to proceed. He has been evaluated by Dr. Harris who has given cardiac clearance.
[2022-03-10] MEDS ORDERED: NA CHLORIDE 0.9% 50 ML ONE (13:45)
[2022-03-10] MEDS ORDERED: SUCCINYLCHOLINE 20 MG/ML (10 ML) IV ONE (13:50)
[2022-03-10] MEDS ORDERED: ROCURONIUM 50 MG/5 ML VIAL IV ONE (13:59)
[2022-03-10] MEDS ORDERED: FENTANYL CITR 100 MCG/2 ML ONE ×2 (13:59→15:02)
[2022-03-10] MEDS ORDERED: MIDAZOLAM HCL 2 MG/2 ML INJ ONE (13:59)
[2022-03-10] MEDS ORDERED: propofoL 200 MG/20 ML VIAL IV ONE (13:59)
[2022-03-10] MEDS ORDERED: LIDOCAINE 1% MPF 5 ML VIAL ONE (14:09)
[2022-03-10] MEDS ORDERED: LIDOCAINE JELLY 2%- 5 ML TUBE ONE (14:11)
--- NOTE | 2022-03-10 14:19 | CON ---
Date of Consultation: 03/10/[address] Yo on 03/09/2023 with an incarcerated hernia. I saw the patient on 03/10/2022. Reason For Consultation: Cardiac clearance. History Of Present Illness: Mr. Rojo is 71 years old with history of right-sided congestive heart failure, atrial fibrillation, GI bleed, hypertension, and dyslipidemia. He is on Eliquis that has b een held. Recently, he had a gallbladder surgery and did well cardiac thorpe. The last echo was pract ically normal without any evidence of pulmonary hypertension. He has a normal ejection fraction. He has had a Watchman procedure done recently for his AFib and he does not really need Eliquis anymore. He is on atenolol, Lasix, and irbesartan. He denied any cardiac symptoms. Past Medical History: As stated above. Allergies: HE IS ALLERGIC TO CODEINE. Review of Systems: Negative. Social History: Negative. Family History: Negative. Medications: Listed earlier. Physical Examination: General: He is pleasant, atrial fibrillation, rate controlled. Vital Signs: Stable. No fever. HEENT: Negative. Neck: Supple with no bruit. Chest: Clear. Cardiac: Revealed atrial fibrillation with a tricuspid regurgitation murmur. No gallops or rubs. Abdomen: Positive for incarcerated hernia. Extremities: Revealed no clubbing, cyanosis, or edema. Diagnostic Data: EKG showed atrial fibrillation with PVCs. BNP was unremarkable. Impression And Plan: 1.Right-sided congestive heart failure, much improved. Normal right ventricular systolic pressure w ith normal ejection fraction. No cardiac symptoms. I think the patient is at low risk for periopera tive mortality surgery. 2.Chronic atrial fibrillation with Watchman. He does not need anticoagulation anymore. 3.History of gastrointestinal bleed. 4.Hypertension. 5.Dyslipidemia. All are very well controlled. We will continue to follow him postoperatively. DAVID/JUAN Voice ID: [id number] Report ID: [id number]
[2022-03-10] MEDS ORDERED: GLYCOPYRROLATE 0.2 MG/ML SYR ONE (14:27)
[2022-03-10] MEDS ORDERED: NEOSTIGMINE 1 MG/ML -10 ML VIAL ONE (14:27)
[2022-03-10] MEDS ORDERED: ONDANSETRON 4 MG/2 ML VIAL ONE (14:28)
[2022-03-10] MEDS ORDERED: dexAMETHasone 10 MG/ML VIAL ONE (14:28)
[2022-03-10] MEDS ORDERED: KETOROLAC 30 MG/ML INJ ONE (14:28)
--- NOTE | 2022-03-10 14:52 | P.PN ---
Subjective Date of Service: 03/10/22 Chief Complaint: Incarcerated right sided umbilical hernia Subjective: No new changes (Still pain over left inguinal hernia area Cleared by cardiology today) Physical Examination - Vital Signs Temperature: 97.4 F Blood Pressure: 93/59 Pulse: 80 Respirations: 16 Pulse Ox (%): 100 Assessment And Plan Discharge Plan: Home Physician Review: Patient Assessed, Agree with Above Assessment and Plan Physician Review Additional Text: - Physical Exam General: Alert, In no apparent distress, Oriented x3 HEENT: Atraumatic, PERRLA, Mucous membr. moist/pink, EOMI, Sclerae nonicteric Neck: Supple, 2+ carotid pulse no bruit, No LAD, Without JVD or thyroid abnormality Respiratory: Clear to auscultation bilaterally, Normal air movement Cardiovascular: Regular rate/rhythm, Normal S1 S2, Systolic murmur Gastrointestinal: Normal bowel sounds, Soft and benign, Non-distended, No tenderness GUright inguinal hernia tender Musculoskeletal: No tenderness Integumentary: No rashes Neurological: Normal gait, Normal speech, Normal strength at 5/5 x4 extr, Normal tone, Normal affect Lymphatics: No axilla or inguinal lymphadenopathy - Studies Laboratory Data (last 24 hrs) 03/09/22 14:08: Sodium 137, Potassium 3.7, BUN 18, Creatinine 0.96, Glucose 106, Total Bilirubin 1.8 H, AST 20, ALT 21, Alkaline Phosphatase 147 H, Lipase 87 03/09/22 14:08: WBC 6.5 D, Hgb 13.4 L, Hct 41.8, Plt Count 150 L Assessment & Plan - Problems (Diagnosis) (1) Incarcerated right inguinal hernia Current Visit: Yes Status: Acute (2) Atrial fibrillation Current Visit: Yes Status: Acute (3) Presence of Watchman left atrial appendage closure device Current Visit: Yes Status: Acute (4) HTN (hypertension) Current Visit: Yes Status: Acute - Plan -Cleared by cardiology Follow general surgery plan for repair of incarcerated hernia Follow H&H since recent GI bleed 1 week ago although unable to find source of bleeding Borderline low blood pressure, monitor closely Gentle IV fluid for now -advanced diet as tolerated -strict blood pressure and blood sugar control -monitor electrolytes and blood count closely -pain control Discharge Plan: Home Plan to discharge in: 1 to 2 days - Advance Directives Does patient have a Living Will: No Does patient have a Durable POA for Healthcare: No - Code Status/Comfort Care Code Status Assessed: Yes
[2022-03-10] MEDS: MORPHINE 4 MG/ML SYR ONE ×2 (16:37→16:49)
--- NOTE | 2022-03-10 17:17 | P.OP ---
Preoperative diagnosis: Recurrent right inguinal hernia Postoperative diagnosis: The same Primary procedure: Laparoscopic repair of right inguinal hernia Other procedure(s): Removal of all plug Estimated blood loss: Less than 15 cc Specimen: 1 plug sent for identification Operative Technique: The patient brought the operating room and placed supine on the table. After the induction of adequate general endotracheal anesthesia, the area of the abdomen was prepped with a Betadine solution, and he was draped in usual aseptic manner. A Correa catheter had been inserted prior to the draping. A subumbilical incision was made. This was brought down through the skin and subcutaneous tissue. The fascia over the rectus on the right side was opened with an 11 blade. A Yenni retractor was now used to elevate the fascia. Placing a finger in this area we were now able to pass our balloon dissector down towards the pubic symphysis where it was inflated. This allowed us to dissect the peritoneum off the posterior sheath. Having created a preperitoneal space, there was now insufflated to approximately 12 mmHg. Under direct vision a 5 mm trocar was placed in the lower midline and 1 approximately 3 fingerbreadth above this. Attention was turned towards her right lower quadrant. We could see medially just at the level of the Peng's ligament there appeared to be a small opening in this area. This corresponded to the internal ring 1 palpated for on physical exam. Attention was turned towards his anterior portion of the abdominal wall. We gently swept out laterally dissecting all the scar tissue and adhesions down from this area. As we came more medially we saw the plug that had been used for the plug and repair. Just at the area of the spermatic cord we could see where the peritoneum had most likely gone under a plug and patch. The sac was grasped with hemostats. We were now able to apply traction and gently dissecting the spermatic cord structures off the hernia sac this was traced down towards where the previous repair had been done. Applying traction we were able to identify the neck of this hernia sac. We transected this rather than pull it up from the outside due to the amount of scar tissue and adhesions in the area. This transected portion also allowed us to have a look inside the peritoneal cavity we did not see any injury to any bowel. The patient does have is considerable amount of ascitic fluid inside there. There was no evidence of any bile-stained contents or any visible compromise of the bowel in that area. This would be consistent with the ascitic fluid seen on his CT scan from a week ago. These this open area peritoneum was now closed by grasping the edges of the peritoneal defect both medially and laterally and tying them with the ligature tie. This allowed us to bring these 2 areas and opposition and a third tie was now applied on top of it to close this peritoneal defect. Attention was now turned towards the anterior abdominal wall. Peng's ligament having been identified a piece of medium mesh was now introduced into the preperitoneal space. It was fixed medially at with the protractor. 3 meade tacks were placed to hold the mesh in place. As we traced out laterally the tail was held in place with a loose tack taking only 1-1/2 spins off the tacker to fix it to the abdominal wall. At this point the was inspected to ensure adequate hemostasis. We were now able to take the patient out of Trendelenburg. Having done this we could see the peritoneum starting to come down and rolling up on the inferior edge of our mesh repair. We made sure that we had very good coverage of this area and then nothing went back underneath the mesh that had been placed preperitoneally. At this point the preperitoneal space was completely closed. Pressure was gently applied to the abdomen to try to deflate the pneumoperitoneum. Having done this 0.25% Marcaine was instilled through the 5 mm trocar. At the end of the procedure the patient was in a stable condition was sent to the recovery room. Needle sponge instrument count were correct. The umbilical defect had been closed using a absorbable suture of Max[place]. Donovan were then applied to the skin. Transferred to: Recovery Room Condition: Good
[2022-03-10] MEDS: ROSUVASTATIN 10 MG TAB PO SCH (22:03)
[2022-03-11] MEDS ORDERED: NA CHLORIDE 0.9% 500 ML IV ONE (01:52)
[2022-03-11] MEDS: CEFAZOLIN 1 GM in NA CHLORIDE 0.9% 50 ML IVPB SCH ×2 (01:54→10:06)
[2022-03-11] MEDS: NA CHLORIDE 0.9% 1,000 ML IV SCH ×2 (01:56→10:06)
[2022-03-11] MEDS: HYDROMORPHONE HCL 0.5 MG/0.5 ML INJ IV PRN ×4 (03:19→21:22)
[2022-03-11 04:55] LABS: Absolute Lymphocytes (CBC) 0.3 K/uL (0.7-4.9); Hematocrit 33.1 % (39.6-49.0); Lymphocytes % 5.7 % (15.3-44.8); MPV 8.8 fL (7.6-11.3); RBC Red Blood Cell Count 3.68 M/uL (4.33-5.43)
[2022-03-11 05:09] LABS: Albumin 2.6 g/dL (3.4-5.0); Bilirubin Total 0.9 mg/dL (0.2-1.0); Magnesium 1.9 mg/dL (1.8-2.4); Potassium 4.3 mmol/L (3.5-5.1); Protein, Total 5.8 g/dL (6.4-8.2)
[2022-03-11 05:18] LABS: Blood Morphology Comment NOT SEEN (NOT SEEN); Platelet Estimate ADEQ
[2022-03-11] MEDS: atenoloL 50 MG TAB PO SCH (09:00)
[2022-03-11] MEDS: POTASSIUM CL SA 10 MEQ TAB PO SCH (10:07)
--- NOTE | 2022-03-11 13:54 | P.PN ---
Subjective Date of Service: 03/11/22 Chief Complaint: Incarcerated right sided umbilical hernia Subjective: Improving, New changes (States some pain around the incision site. Feels much better States able to ambulate some Denies any nausea) Physical Examination - Vital Signs Temperature: 97.4 F Blood Pressure: 103/53 Pulse: 73 Respirations: 14 Pulse Ox (%): 100 Assessment And Plan Physician Review: Patient Assessed, Agree with Above Assessment and Plan Physician Review Additional Text: - Physical Exam General: Alert, In no apparent distress, Oriented x3 HEENT: Atraumatic, PERRLA, Mucous membr. moist/pink, EOMI, Sclerae nonicteric Neck: Supple, 2+ carotid pulse no bruit, No LAD, Without JVD or thyroid abnormality Respiratory: Clear to auscultation bilaterally, Normal air movement Cardiovascular: Regular rate/rhythm, Normal S1 S2, Systolic murmur Gastrointestinal: Normal bowel sounds, Soft and benign, Non-distended, No tenderness GUright inguinal hernia tender Musculoskeletal: No tenderness Integumentary: No rashes Neurological: Normal gait, Normal speech, Normal strength at 5/5 x4 extr, Normal tone, Normal affect Lymphatics: No axilla or inguinal lymphadenopathy - Studies Laboratory Data (last 24 hrs) 03/09/22 14:08: Sodium 137, Potassium 3.7, BUN 18, Creatinine 0.96, Glucose 106, Total Bilirubin 1.8 H, AST 20, ALT 21, Alkaline Phosphatase 147 H, Lipase 87 03/09/22 14:08: WBC 6.5 D, Hgb 13.4 L, Hct 41.8, Plt Count 150 L Assessment & Plan - Problems (Diagnosis) (1) Incarcerated right inguinal hernia Current Visit: Yes Status: Acute (2) Atrial fibrillation Current Visit: Yes Status: Acute (3) Presence of Watchman left atrial appendage closure device Current Visit: Yes Status: Acute (4) HTN (hypertension) Current Visit: Yes Status: Acute - Plan -Status post laparoscopic repair of right inguinal herniaincarcerated Continue early ambulation DC IV fluid As tolerated Blood pressure controlled, resolved hypertension Status post cleared by cardiology H&H remained stable, status post recent GI bleed1 week ago although unable to find source of bleeding -strict blood pressure and blood sugar control -monitor electrolytes and blood count closely -pain control Discharge Plan: Home Plan to discharge in: IN AM - Advance Directives Does patient have a Living Will: No Does patient have a Durable POA for Healthcare: No Time Spent Managing PTS Care (In Minutes): 30
[2022-03-11] MEDS ORDERED: CHLORASEPTIC LOZENGES MM PRN (18:00)
[2022-03-11] MEDS: ROSUVASTATIN 10 MG TAB PO SCH (21:22)
[2022-03-12 05:47] LABS: Absolute Lymphocytes (CBC) 1.2 K/uL (0.7-4.9); Hematocrit 34.2 % (39.6-49.0); Lymphocytes % 17.3 % (15.3-44.8); MPV 8.5 fL (7.6-11.3); RBC Red Blood Cell Count 3.72 M/uL (4.33-5.43)
[2022-03-12 06:04] LABS: Albumin 2.5 g/dL (3.4-5.0); Bilirubin Total 0.7 mg/dL (0.2-1.0); Potassium 3.8 mmol/L (3.5-5.1); Protein, Total 5.5 g/dL (6.4-8.2)
[2022-03-12] MEDS: POTASSIUM CL SA 10 MEQ TAB PO SCH (08:33)
[2022-03-12] MEDS ORDERED: atenoloL 50 MG TAB PO SCH (09:00)
[2022-03-12] MEDS ORDERED: POTASSIUM CL SA 10 MEQ TAB PO ONE (09:00)
--- NOTE | 2022-03-12 10:34 | P.DS ---
Admission Date: 03/09/22 Discharge Date: 03/12/22 Disposition: ROUTINE DISCHARGE Discharge Condition: FAIR Reason for Admission: Incarcerated right sided umbilical hernia Brief History of Present Illness: istory of Present Illness: Patient is a 71-year-old gentleman who presented to the hospital with incarcerated right inguinal hernia. The patient was having severe pain and came to the hospital for further evaluation. Patient's hernia was reduced by general surgeon. However, in light of the fact that the inguinal hernia has had repeated episodes of strangulation patient will be admitted for surgical intervention. We will consult Cardiology for cardiac clearance. Patient recently had Watchman procedure per Dr. Kendrick. Eliquis has been on hold for 4 days. Proceed with surgery if okay with Cardiology. Allergies No Known Allergies Allergy (Verified 02/05/21 13:47) Home Medications: Atenolol [Tenormin] 100 mg PO DAILY 02/05/21 Azelastine [Astelin 137MCG/Metered [place]*] 137 mcg NS BID 02/05/21 Fluticasone [Flovent Hfa 110*] 2 sprays IH BIDP PRN 02/05/21 Irbesartan 150 mg PO DAILY 02/05/21 Multivitamin/Iron/Folic Acid [Centrum Adults Tablet] 1 each PO DAILY 02/05/21 Rosuvastatin Calcium [Crestor] 20 mg PO BEDTIME 02/05/21 Vit A/Vit C/Vit E/Zinc/Copper [Eye Multivitamin Tablet] 2 each PO BEDTIME 02/05/21 Apixaban [Eliquis] 5 mg PO BID 02/11/22 Furosemide [Lasix] 20 mg PO DAILY 02/11/22 Potassium Chloride 1 tab PO DAILY 02/11/22 Hydrocodone 5/APAP 325 [[place] 5/325] 1 tab PO Q8H PRN #15 tab 02/14/22 Hospital Course: Course Patient with history of hypertension A. fib admitted for incarcerated right inguinal hernia. Patient was started on gentle IV fluid with pain medication regimen. He was evaluated by general surgery he underwent laparoscopic inguinal hernia repair. Postop patient tolerated well. His pain significantly improved. He is ambulatory and tolerating p.o. well. He will be discharged home on his anticoagulation has been resumed. Vital Signs/Physical Exam: Temp Pulse Resp BP Pulse Ox 97.6 F 86 12 113/74 96 03/12/22 08:00 03/12/22 08:34 03/12/22 08:33 03/12/22 08:34 03/12/22 08:33 General: Alert, In no apparent distress, Oriented x3 HEENT: Atraumatic, Normocephalic, PERRLA Neck: Supple, 2+ carotid pulse no bruit, JVD not distended Respiratory: Clear to auscultation bilaterally, Normal air movement Cardiovascular: No edema, Normal pulses, Regular rate/rhythm, Normal S1 S2 Gastrointestinal: Normal bowel sounds, Soft and benign, Non-distended, Other (clean dsg over inguinal and suprapubic lap areas ) Laboratory Data at Discharge: WBC 6.8 K/uL (4.3-10.9) 03/12/22 05:12 Hgb 11.3 g/dL (13.6-17.9) L 03/12/22 05:12 Hct 34.2 % (39.6-49.0) L 03/12/22 05:12 Plt Count 155 K/uL (152-406) 03/12/22 05:12 PT 15.9 SECONDS (9.5-12.5) H 03/10/22 04:27 INR 1.43 03/10/22 04:27 APTT 32.7 SECONDS (24.3-36.9) 03/10/22 04:27 Sodium 140 mmol/L (136-145) 03/12/22 05:12 Potassium 3.8 mmol/L (3.5-5.1) 03/12/22 05:12 BUN 17 mg/dL (7-18) 03/12/22 05:12 Creatinine 0.61 mg/dL (0.55-1.3) 03/12/22 05:12 Glucose 97 mg/dL (74-106) 03/12/22 05:12 Magnesium 1.9 mg/dL (1.8-2.4) 03/12/22 05:12 Total Bilirubin 0.7 mg/dL (0.2-1.0) 03/12/22 05:12 AST 24 U/L (15-37) 03/12/22 05:12 ALT 19 U/L (12-78) 03/12/22 05:12 Alkaline Phosphatase 131 U/L (45-117) H 03/12/22 05:12 Lipase 87 U/L (73-393) 03/09/22 14:08 Home Medications: Atenolol [Tenormin] 100 mg PO DAILY 02/05/21 Azelastine [Astelin 137MCG/Metered [place]*] 137 mcg NS BID 02/05/21 Fluticasone [Flovent Hfa 110*] 2 sprays IH BIDP PRN 02/05/21 Irbesartan 150 mg PO DAILY 02/05/21 Multivitamin/Iron/Folic Acid [Centrum Adults Tablet] 1 each PO DAILY 02/05/21 Rosuvastatin Calcium [Crestor] 20 mg PO BEDTIME 02/05/21 Vit A/Vit C/Vit E/Zinc/Copper [Eye Multivitamin Tablet] 2 each PO BEDTIME 02/05/21 Apixaban [Eliquis] 5 mg PO BID 02/11/22 Furosemide [Lasix] 20 mg PO DAILY 02/11/22 Potassium Chloride 1 tab PO DAILY 02/11/22 Hydrocodone 5/APAP 325 [[place] 5/325*] 1 tab PO Q8H PRN #15 tab 03/12/22 New Medications: Hydrocodone 5/APAP 325 [[place] 5/325*] 1 tab PO Q8H PRN #15 tab PRN Reason: Pain Diet: Low sodium Activity: Ad tri Followup: Ciaran Iraheta MD [ACTIVE - CAN ADMIT] - 1 Week SUMAYA SHELL [Primary Care Provider] - Time spent managing pt's care (in minutes): 35
[2022-03-12 12:59] VITALS: O2SAT 96
[2022-03-12 13:36] VITALS: BP 120/75; TEMP 97
--- NOTE | 2022-03-13 06:22 | PN ---
Date of Progress Note: 03/11/2022 Mr. Rojo was seen for cardiac clearance for incarcerated hernia. He has a history of right-sided congestive heart failure with recent normal echocardiogram. His Eliquis has been held. He has a his tory of atrial fibrillation, hypertension, dyslipidemia, and GI bleed. Did not have any cardiac symp toms. Remains on atenolol, Lasix, and irbesartan. I cleared him for surgery by Dr. Iraheta. He und erwent surgery on 03/10/2022 and so far has done well without any hemodynamic compromise or congestiv e heart failure signs or symptoms. He was in atrial fibrillation, but was rate controlled at 89. Bl ood pressure was 119/63. He was afebrile. O2 saturation was 95% on room air. I would send him home whenever it is okay with Dr. Iraheta. Continue his present regimen at home. I will see him in the office in about a week or two. NB/MODL Voice ID: [id number] Report ID: [id number]
== END 2022-03-12 12:15 | disposition home or self-care (01) | DRG 352 ==
LOC: ER 13:26 → ERHOLD 18:23 → 2ND 19:11
PROVIDERS: ADMIT Hospitalist; ATTEND Hospitalist
PROC: 0YU54JZ Supplement Right Inguinal Region with Synthetic Substitute, Percutaneous Endoscopic Approach (ICD-10-PCS; principal; 2022-03-10 14:00)
DX: K40.31 Unilateral inguinal hernia, with obstruction, without gangrene, recurrent (principal); I10 Essential (primary) hypertension; I48.91 Unspecified atrial fibrillation; E78.5 Hyperlipidemia, unspecified; I11.0 Hypertensive heart disease with heart failure; I50.810 Right heart failure, unspecified; Z95.818 Presence of other cardiac implants and grafts; Z20.822 Contact with and (suspected) exposure to COVID-19
CPT/HCPCS: 36415; 74018; 74177; 80053; 82271; 83690; 83735; 83880; 83986; 84484; 85025; 85610; 85730; 88300; 93005; 99285; C9113; J0330; J0690; J1100; J1170; J2175; J2250; J2405; J2550; J2704; J2710; J3010; J7030; J7050; J7120; Q9967; U0003

== ENCOUNTER 2023-03-25 06:28 | Day surgery (SDC) | payer OTHER ==
[2023-03-25] MEDS ORDERED: Ringers Lactate 1,000 ML IV ONE (06:55)
[2023-03-25] MEDS ORDERED: SUCCINYLCHOLINE 20 MG/ML (10 ML) IV ONE (07:14)
[2023-03-25] MEDS ORDERED: propofoL 200 MG/20 ML VIAL IV ONE (07:15)
[2023-03-25] MEDS ORDERED: LIDOCAINE 2% MPF 5 ML VIAL ONE ×2 (07:18)
[2023-03-25 09:53] VITALS: TEMP 97.7
[2023-03-25 09:57] VITALS: BP 114/65; O2SAT 100
== END 2023-03-25 08:50 | disposition home or self-care (01) ==
LOC: OR 06:28
PROVIDERS: ATTEND Internal Medicine Gastroenterology
PROC: 0DBN8ZX Excision of Sigmoid Colon, Via Natural or Artificial Opening Endoscopic, Diagnostic (ICD-10-PCS; principal; 2023-03-25 07:30)
DX: D50.9 Iron deficiency anemia, unspecified (principal); E78.5 Hyperlipidemia, unspecified; I48.11 Longstanding persistent atrial fibrillation; K57.30 Diverticulosis of large intestine without perforation or abscess without bleeding; K64.8 Other hemorrhoids; D12.5 Benign neoplasm of sigmoid colon; Z86.010 Personal history of colon polyps; Z79.01 Long term (current) use of anticoagulants
CPT/HCPCS: 88305; 45380; J2704; J2001 ×2; J7120

== ENCOUNTER 2023-12-04 14:49 | Observation (INO) | payer OTHER ==
[2023-12-04] MEDS ORDERED: NA CHLORIDE 0.9% 500 ML ONE (15:13)
[2023-12-04 15:20] LABS: Absolute Lymphocytes (CBC) 1.3 K/uL (0.7-4.9); Hematocrit 40.1 % (39.6-49.0); Lymphocytes % 22.4 % (15.3-44.8); MCV 91.4 fL (80-100); MPV 9.1 fL (7.6-11.3); Platelets 153 thou/uL (152-406); RBC Red Blood Cell Count 4.39 M/uL (4.33-5.43)
[2023-12-04 15:34] LABS: SARS-CoV-2 Antigen Rapid Res Negative (Negative)
--- NOTE | 2023-12-04 15:35 | RAD REPORT ---
EXAM DESCRIPTION: RADChest Single View12/04/2023 3:20 pm CLINICAL HISTORY: near syncope COMPARISON: Chest Pa And Lat (2 Views) dated 07/10/2023; Abdomen 1 View (KUB) dated 03/07/2022; Chest Single View dated 02/13/2022; Chest Single View dated 02/10/2022 TECHNIQUE: Portable AP view of the chest. FINDINGS: The lungs are clear. No pneumothorax or effusion. The cardiomediastinal contours are unre markable. IMPRESSION: No acute cardiopulmonary process.
[2023-12-04 15:40] LABS: Albumin 3.7 g/dL (3.4-5.0); Bilirubin Direct 0.3 mg/dL (0-0.2); Bilirubin Indirect, Calculated 0.6 mg/dL (0.2-0.8); Bilirubin Total 0.9 mg/dL (0.2-1.0); Magnesium 2.2 mg/dL (1.6-2.4); Potassium 3.9 mEq/L (3.5-5.1); Protein, Total 6.7 g/dL (6.4-8.2); Troponin High Sensitivity 10.1 pg/mL (<58.9)
[2023-12-04 15:43] LABS: Protime INR 1.14
--- NOTE | 2023-12-04 16:32 | EDPHYS ---
Physician Documentation [facility] Name: Deonte Rojo Age: 73 yrs Sex: Male : 1950 Arrival Date: 12/04/2023 Time: 14:49 Bed 7 Private MD: ED Physician Saman Kilgore HPI: 12/04 14:59 This 73 yrs old Male presents to ER via EMS with complaints of Near Syncope. rn 14:59 The patient has experienced near-syncope. Onset: The symptoms/episode began/occurred rn just prior to arrival. Duration: This was a single episode. Context:. Associated injury: The patient did not suffer any apparent associated injury. Associated signs and symptoms: Pertinent positives: dizziness, Pertinent negatives: abdominal pain, chest pain, headache, seizure, shortness of breath, vomiting. The patient has not experienced similar symptoms in the past. Patient reports shortly after eating lunch felt lightheaded and dizzy when standing, no syncope. No fever. No intestinal bleeding. No recent vomiting or diarrhea but states recent cold. States p.o. intake is good. No chest pain or shortness of breath. No history of DVT or PE. No trauma. Historical: - Allergies: 14:59 Codeine; kc6 - PMHx: 14:59 Atrial Fib; GI Bleed; Hernia; Hyperlipidemia; Hypertension; kc6 - PSHx: 14:59 watchman (Hypertension); kc6 - Immunization history:: Adult Immunizations up to date. - Social history:: Smoking status: Patient denies any tobacco usage or history of. - Family history:: not pertinent. - Hospitalizations: : No recent hospitalization is reported. ROS: 14:59 Constitutional: Negative for fever, chills, and weight loss, Eyes: Negative for injury, rn pain, redness, and discharge, ENT: Negative for injury, pain, and discharge, Neck: Negative for injury, pain, and swelling, Cardiovascular: Negative for chest pain, palpitations, and edema, Respiratory: Negative for shortness of breath, cough, wheezing, and pleuritic chest pain, Abdomen/GI: Negative for abdominal pain, nausea, vomiting, diarrhea, and constipation, Back: Negative for injury and pain, MS/Extremity: Negative for injury and deformity, Skin: Negative for injury, rash, and discoloration, Neuro: Lysed weakness Exam: 14:59 Constitutional: This is a well developed, well nourished patient who is awake, alert, rn and in no acute distress. Head/Face: Normocephalic, atraumatic. Eyes: Pupils equal round and reactive to light, extra-ocular motions intact. ENT: Moist mucous membranes Neck: Trachea midline, no masses palpated, and no cervical lymphadenopathy. Supple, full range of motion without nuchal rigidity, or vertebral point tenderness. No Meningismus. Cardiovascular: Regular rate, irregular rhythm. No pulse deficit Respiratory: Speaking full sentences, unlabored. No increased work of breathing, no retractions or nasal flaring. Abdomen/GI: Soft, nontender MS/ Extremity: Pulses equal, no cyanosis. Neurovascular intact. Full, normal range of motion. Equal circumference. Neuro: Awake and alert, GCS 15, oriented to person, place, time, and situation. Cranial nerves II-XII grossly intact. Motor strength 5/5 in all extremities. Sensory grossly intact. Cerebellar exam normal. 17:34 ECG was reviewed by the Attending Physician. rn Vital Signs: 14:57 BP 135 / 92; Pulse 64; Resp 16 S; Temp 97.6(O); Pulse Ox 99% on R/A; Weight 95.25 kg kc6 (R); Height 6 ft. 1 in. (R); 15:30 BP 105 / 78; Pulse 58; Resp 16; Pulse Ox 98% on R/A; Pain 0/10; hb 16:43 BP 126 / 75; Pulse 56; Resp 14 S; Pulse Ox 100% on R/A; kc6 18:08 BP 111 / 73; Pulse 68; Resp 16 S; Pulse Ox 95% on R/A; kc6 14:57 Body Mass Index 27.71 (95.25 kg, 185.42 cm) kc6 15:30 Pain Scale: Adult hb MDM: 14:56 Patient medically screened. rn 16:30 Differential Diagnosis: cardiac arrhythmia, cerebrovascular accident, emotional rn response, GI bleed, idiopathic syncope, transient ischemic attack, vasovagal episode. Data reviewed: vital signs, nurses notes, lab test result(s), EKG, radiologic studies, plain films, and as a result, I will admit patient. Consideration of Admission/Observation Patient was admitted/placed on observation. Escalation of care including admission/observation considered. Care significantly affected by the following chronic conditions: afib. Counseling: I had a detailed discussion with the patient and/or guardian regarding the historical points, exam findings, and any diagnostic results supporting the discharge/admit diagnosis, lab results, radiology results, the need for further work-up and treatment in the hospital. Response to treatment: the patient's symptoms have mildly improved after treatment, and as a result, I will admit patient. 12/04 14:57 Order name: Basic Metabolic Panel; Complete Time: 15:41 rn 12/04 14:57 Order name: CBC with Diff; Complete Time: 15:41 rn 12/04 14:57 Order name: Hepatic Function; Complete Time: 15:41 rn 12/04 14:57 Order name: Magnesium; Complete Time: 15:41 rn 12/04 14:57 Order name: Protime (+inr); Complete Time: 15:56 rn 12/04 14:57 Order name: Ptt, Activated; Complete Time: 15:56 rn 12/04 14:57 Order name: Troponin High Sensitivity; Complete Time: 15:41 rn 12/04 14:57 Order name: Urinalysis w/ reflexes rn 12/04 14:57 Order name: BNP; Complete Time: 15:41 rn 12/04 14:57 Order name: SARS RAPID; Complete Time: 15:41 rn 12/04 14:57 Order name: Flu; Complete Time: 15:41 rn 12/04 17:06 Order name: Thyroid Stimulating Hormone EDMS 12/04 17:06 Order name: CBC with Automated Diff EDMS 12/04 17:06 Order name: CBC with Automated Diff EDMS 12/04 17:06 Order name: CBC with Automated Diff EDMS 12/04 17:06 Order name: CBC with Automated Diff EDMS 12/04 17:06 Order name: Comprehensive Metabolic Panel EDMS 12/04 17:06 Order name: Comprehensive Metabolic Panel EDMS 12/04 17:06 Order name: Magnesium EDMS 12/04 17:06 Order name: Magnesium EDMS 12/04 17:06 Order name: Troponin High Sensitivity EDMS 12/04 17:06 Order name: Troponin High Sensitivity EDMS 12/04 17:06 Order name: Troponin High Sensitivity EDMS 12/04 17:08 Order name: Comprehensive Metabolic Panel EDMS 12/04 17:08 Order name: Comprehensive Metabolic Panel EDMS 12/04 17:08 Order name: Comprehensive Metabolic Panel EDMS 12/04 17:08 Order name: Magnesium EDMA 12/04 17:08 Order name: Magnesium EDMA 12/04 17:08 Order name: Magnesium [facility] 12/04 14:57 Order name: Chest Single View XRAY; Complete Time: 15:41 rn 12/04 16:29 Order name: CT Head Brain wo Cont rn 12/04 17:26 Order name: CT; Complete Time: 17:34 EDMA 12/04 14:57 Order name: EKG; Complete Time: 14:57 rn 12/04 17:06 Order name: CONS Physician Consult EDMA 12/04 14:57 Order name: Cardiac monitoring; Complete Time: 15:10 rn 12/04 14:57 Order name: EKG - Nurse/Tech; Complete Time: 15:10 rn 12/04 14:57 Order name: IV Saline Lock; Complete Time: 15:10 rn 12/04 14:57 Order name: Labs collected and sent; Complete Time: 15:10 rn 12/04 14:57 Order name: O2 Per Protocol; Complete Time: 15:10 rn 12/04 14:57 Order name: O2 Sat Monitoring; Complete Time: 15:10 rn EC:34 Rate is 62 beats/min. Rhythm is irregular. QRS [place] is Normal. OK interval is normal. rn QRS interval is normal. QT interval is normal. No Q waves. T waves are Normal. No ST changes noted. Clinical impression: Atrial Fibrillation. Interpreted by me. Reviewed by me. Administered Medications: 15:18 Drug: NS 0.9% IV 500 ml IV at bolus once Route: IV; Rate: bolus; Site: right kc6 antecubital; 16:43 Follow up: Response: No adverse reaction; IV Status: Completed infusion; IV Intake: kc6 500ml Disposition Summary: 12/04/23 16:31 Hospitalization Ordered Notes: Hospitalization Status: Observation rn Provider: Kori Ortiz [facility]n [facility] rn Condition: Stable rn Problem: new rn Symptoms: have improved rn Bed/Room Type: Standard rn Room Assignment: 216(12/04/23 17:37) as6 Diagnosis - Near Syncope rn - Unspecified atrial fibrillation rn - Hypotension, unspecified rn Forms: - Medication Reconciliation Form rn - SBAR form rn - Leadership Thank You Letter rn Signatures: Dispatcher [employer] Genevieve Chawla, SYSTEM SUPPORT SPECIALIST-C SYSTEM SUPPORT SPECIALIST-Csnw Saman Kilgore MD MD rn Slawson, Ashby RN RN as6 Aicha Morejon RN RN kc6 Corrections: (The following items were deleted from the chart) 17:37 16:31 rn as6
--- NOTE | 2023-12-04 16:32 | ER ---
Nurse's Notes [facility] Name: Deonte Rojo Age: 73 yrs Sex: Male : 1950 Arrival Date: 12/04/2023 Time: 14:49 Bed 7 Private MD: Diagnosis: Near Syncope;Unspecified atrial fibrillation;Hypotension, unspecified Presentation: 12/04 14:57 Chief complaint: EMS states: they were toned for near syncope. Coronavirus screen: At [facility] this time, the client does not indicate any symptoms associated with coronavirus-19. Ebola Screen: No symptoms or risks identified at this time. Initial Sepsis Screen: Does the patient meet any 2 criteria? No. Patient's initial sepsis screen is negative. Does the patient have a suspected source of infection? No. Patient's initial sepsis screen is negative. Risk Assessment: Do you want to hurt yourself or someone else? Patient reports no desire to harm self or others. Onset of symptoms was December 04, 2023. 14:57 Method Of Arrival: EMS: [place] [id number] 14:57 Acuity: BRODERICK 3 kc6 Triage Assessment: 14:59 General: Appears in no apparent distress. comfortable, well groomed, well developed, kc6 Behavior is calm, cooperative, appropriate for age. Pain: Denies pain. EENT: No signs and/or symptoms were reported regarding the EENT system. Neuro: Level of Consciousness is awake, alert, obeys commands, Oriented to person, place, time, situation, Appropriate for age Reports dizziness. Cardiovascular: Denies chest pain, Heart tones S1 S2 present Capillary refill < 3 seconds Rhythm is atrial fibrillation With PVC's. Respiratory: Airway is patent Trachea midline Respiratory effort is even, unlabored, Respiratory pattern is regular, symmetrical. GI: No signs and/or symptoms were reported involving the gastrointestinal system. : No signs and/or symptoms were reported regarding the genitourinary system. Derm: No signs and/or symptoms reported regarding the dermatologic system. Skin is intact, is healthy with good turgor, Skin is dry, Skin is pale, Skin temperature is warm. Musculoskeletal: No signs and/or symptoms reported regarding the musculoskeletal system. Circulation, motion, and sensation intact. Capillary refill < 3 seconds, Range of motion: intact in all extremities. Historical: - Allergies: 14:59 Codeine; kc6 - PMHx: 14:59 Atrial Fib; GI Bleed; Hernia; Hyperlipidemia; Hypertension; kc6 - PSHx: 14:59 watchman (Hypertension); kc6 - Immunization history:: Adult Immunizations up to date. - Social history:: Smoking status: Patient denies any tobacco usage or history of. - Family history:: not pertinent. - Hospitalizations: : No recent hospitalization is reported. Screenin:01 [facility] ED Fall Risk Assessment (Adult) History of falling in the last 3 months, kc6 including since admission No falls in past 3 months (0 pts) Confusion or Disorientation No (0 pts) Intoxicated or Sedated No (0 pts) Impaired Gait No (0 pts) Mobility Assist Device Used No (0 pt) Altered Elimination No (0 pt) Score/Fall Risk Level 0 - 2 = Low Risk. Abuse screen: Denies threats or abuse. Denies injuries from another. Nutritional screening: No deficits noted. Tuberculosis screening: No symptoms or risk factors identified. Assessment: 15:02 Reassessment: please see triage assesment. kc 16:02 Reassessment: Patient appears in no apparent distress at this time. No changes from 6 previously documented assessment. Patient and/or family updated on plan of care and expected duration. Pain level reassessed. Patient is alert, oriented x 3, equal unlabored respirations, skin warm/dry/pink. 18:08 Reassessment: Patient appears in no apparent distress at this time. No changes from kc6 previously documented assessment. Patient and/or family updated on plan of care and expected duration. Pain level reassessed. Patient is alert, oriented x 3, equal unlabored respirations, skin warm/dry/pink. 18:30 Reassessment: Patient appears in no apparent distress at this time. No changes from kc6 previously documented assessment. Patient and/or family updated on plan of care and expected duration. Pain level reassessed. Patient is alert, oriented x 3, equal unlabored respirations, skin warm/dry/pink. 19:29 General: attempted to call report. nurse not available. lg3 19:39 Reassessment: report given to GERMAINE Jones. ha1 Vital Signs: 14:57 BP 135 / 92; Pulse 64; Resp 16 S; Temp 97.6(O); Pulse Ox 99% on R/A; Weight 95.25 kg kc6 (R); Height 6 ft. 1 in. (R); 15:30 BP 105 / 78; Pulse 58; Resp 16; Pulse Ox 98% on R/A; Pain 0/10; hb 16:43 BP 126 / 75; Pulse 56; Resp 14 S; Pulse Ox 100% on R/A; kc6 18:08 BP 111 / 73; Pulse 68; Resp 16 S; Pulse Ox 95% on R/A; kc6 14:57 Body Mass Index 27.71 (95.25 kg, 185.42 cm) kc6 15:30 Pain Scale: Adult hb ED Course: 14:56 Patient arrived in ED. rn 14:56 Saman Kilgore MD is Attending Physician. rn 14:56 Aicha Morejon RN is Primary Nurse. 6 14:59 Triage completed. kc6 14:59 Arm band placed on. kc6 15:01 Patient has correct armband on for positive identification. Bed in low position. Call [facility] light in reach. Side rails up X2. Adult w/ patient. Client placed on continuous cardiac and pulse oximetry monitoring. NIBP monitoring applied. electronic device monitor on. 15:01 Maintain EMS IV. Dressing intact. Good blood return noted. Site clean \T\ dry. Gauge \T\ freddie 6 site: 18G RAC. Patient maintains SpO2 saturation greater than 95% on room air. 15:22 Chest Single View XRAY In Process Unspecified. EDMS 16:31 Kori Ortiz MD is Hospitalizing Provider. rn 19:29 No provider procedures requiring assistance completed. lg3 19:48 Patient admitted, IV remains in place. lg3 Administered Medications: 15:18 Drug: NS 0.9% IV 500 ml IV at bolus once Route: IV; Rate: bolus; Site: right kc6 antecubital; 16:43 Follow up: Response: No adverse reaction; IV Status: Completed infusion; IV Intake: kc6 500ml Medication: 19:29 VIS not applicable for this client. lg3 Intake: 16:43 IV: 500ml; Total: 500ml. 6 Outcome: 16:31 Decision to Hospitalize by Provider. rn 19:47 Admitted to Med/surg accompanied by tech, via wheelchair, room 216, Report called to [facility] Robert 19:47 Condition: stable 19:47 Instructed on the need for admit, Demonstrated understanding of instructions, 19:48 Patient left the ED. lg3 Signatures: Dispatcher [employer] EDMS Saman Kilgore MD MD rn Baxter, Heather RN RN Deborah Poole RN RN lg3 Shira Rebollar RN RN ha1 Aicha Morejon RN RN kc6
[2023-12-04] MEDS ORDERED: MAGNESIUM HYDROXIDE 8% 30 ML PO PRN (16:56)
--- NOTE | 2023-12-04 16:56 | P.HP ---
Certification for Inpatient Patient admitted to: Inpatient With expected LOS: >2 Midnights Patient will require the following post-hospital care: None Practitioner: I am a practitioner with admitting privileges, knowledge of patient current condition, hospital course, and medical plan of care. Services: Services provided to patient in accordance with Admission requirements found in Title 42 Section 412.3 of the Code of Federal Regulations <Genevieve Kenney - Last Filed: 12/04/23 17:34> Patient History Date of Service: 12/04/23 Reason for admission: near syncope, a. fib with slow ventricular response History of Present Illness: Mr. Tomi Rojo is a 73-year-old male with a with past medical history of hypertension, hyperlipidemia, and atrial fibrillation s/p a Watchman procedure post GI bleed. Currently he takes atenolol 100 mg p.o. daily, aspirin 81 mg p.o. daily, Crestor, and Lasix 20 mg p.o. daily. He is currently a patient of Dr. Kendrick and believes his last echo was around June of last year. He presented to the emergency room and today after an episode of severe sudden dizziness, diaphoresis, and near syncope. On EMS arrival the patient was hypotensive and bradycardic. Current vital signs in the emergency room are 126/5 heart rate of 64, respiratory rate 19. He denies chest pain, shortness of breath, or nausea but feels tired. He will be admitted to the hospital for serial enzymes and observation of his rhythm. - Past Medical/Surgical History Diabetic: No -: Atrial fibrillation on chronic anticoagulation therapy -: Hypertension -: Hyperlipidemia -: GI bleed -: Hernia repair x2 -: gallbladder surgery Psychosocial/ Personal History: Patient lives at home with his - Family History Family History: Reviewed- Non-Contributory - Social History Smoking Status: Never smoker Alcohol use: No CD- Drugs: No Caffeine use: Yes <Genevieve Kenney - Last Filed: 12/04/23 17:34> Date of Service: 12/04/23 <Kori Ortiz - Last Filed: 12/04/23 18:08> Allergies codeine Allergy (Verified 03/25/23 07:09) Itching Home Medications: Atenolol [Tenormin] 100 mg PO NOON 02/05/21 Azelastine [Astelin 137MCG/Metered [employer]*] 137 mcg NS DAILYPRN PRN 02/05/21 Fluticasone [Flovent Hfa 110*] 2 puff IH BIDP PRN 02/05/21 Multivitamin/Iron/Folic Acid [Centrum Adults Tablet] 1 each PO DAILY 02/05/21 Rosuvastatin Calcium [Crestor] 20 mg PO BEDTIME 02/05/21 Potassium Chloride 1 tab PO DAILY 02/11/22 Aspirin [Low Dose Aspirin EC] 81 mg PO DAILY 03/20/23 Vit C/E/Zn/Coppr/Lutein/Zeaxan [Preservision Areds 2 Softgel] 2 each PO DAILY 03/20/23 Zolpidem Tartrate [Ambien] 10 mg PO BEDTIME PRN PRN 03/20/23 Review of Systems 10-point ROS is otherwise unremarkable General: Weakness, Malaise Eyes: Unremarkable ENT: Unremarkable Respiratory: Unremarkable Cardiovascular: Light Headedness, As per HPI Gastrointestinal: Unremarkable Genitourinary: Unremarkable Musculoskeletal: Unremarkable Integumentary: Unremarkable Neurological: As per HPI Lymphatics: Unremarkable <Kenney,Genevieve - Last Filed: 12/04/23 17:34> Physical Examination - Vital Signs Blood Pressure: 126/75 Pulse: 64 Respirations: 19 Pulse Ox (%): 100 - Physical Exam General: Alert, Other (fatigued) HEENT: Atraumatic, Normocephalic, PERRLA Neck: 2+ carotid pulse no bruit Respiratory: Clear to auscultation bilaterally, Normal air movement Cardiovascular: Other (minimal edema, right ankle), Irregular heart rate/rhythm Capillary refill: <2 Seconds Gastrointestinal: Soft and benign Musculoskeletal: No clubbing, No swelling Integumentary: No rashes, No breakdown Neurological: Other (fatigue) Lymphatics: No axilla or inguinal lymphadenopathy External genitalia: Deferred Rectal: Deferred - Studies Laboratory Data (last 24 hrs) 12/04/23 12/04/23 12/04/23 15:05 15:05 15:05 WBC 5.90 Hgb 13.8 Hct 40.1 Plt Count 153 PT 12.5 INR 1.14 APTT 29.3 Sodium 140 Potassium 3.9 BUN 16 Creatinine 1.31 H Glucose 109 H Magnesium 2.2 Total Bilirubin 0.9 AST 22 ALT 32 Alkaline Phosphatase 70 Microbiology Data (last 24 hrs): 12/04/23 15:05 Nasopharnyx Influenza Type A Antigen Screen - Final 12/04/23 15:05 Nasopharnyx Influenza Type B Antigen Screen - Final <PablitoGenevieve - Last Filed: 12/04/23 17:34> - Studies Laboratory Data (last 24 hrs) 12/04/23 12/04/23 12/04/23 15:05 15:05 15:05 WBC 5.90 Hgb 13.8 Hct 40.1 Plt Count 153 PT 12.5 INR 1.14 APTT 29.3 Sodium 140 Potassium 3.9 BUN 16 Creatinine 1.31 H Glucose 109 H Magnesium 2.2 Total Bilirubin 0.9 AST 22 ALT 32 Alkaline Phosphatase 70 Microbiology Data (last 24 hrs): 12/04/23 15:05 Nasopharnyx Influenza Type A Antigen Screen - Final 12/04/23 15:05 Nasopharnyx Influenza Type B Antigen Screen - Final <Kori Ortiz C - Last Filed: 12/04/23 18:08> Assessment and Plan - Plan Atrial fib with SVR: Hold Atenolol for HR < 60, SBP < 100 ASA EC 1mg po daily SCDs Elevated BNP with ALFREDO: Trend creatinine Trend electrolytes and replete continue Lasix 20mg po daily I&O, daily weights Near syncope: CT head negative for acute Neuro checks q4h while awake Trend troponins DVT prophylaxis: SCDs, ASA (pt with hx of Watchman 2nd to GIB) Discharge Plan: Home Plan to discharge in: 48 Hours - Advance Directives Does patient have a Living Will: No Does patient have a Durable POA for Healthcare: No - Code Status/Comfort Care Code Status Assessed: Yes (Full) <Genevieve Kenney - Last Filed: 12/04/23 17:34> - Plan Pt seen and examined. I agree with the note by the DOOR MACHINE OPERATOR. Pt is a73 yo male with past medical history of Atrial Fib, GI Bleed, Hernia, Hyperlipidemia, and Hypertension who presents with near syncope and bradycardia. Pt felt dizzy and lightheaded when he tried to stand up shortly after eating lunch. Pt did not pass out. On admission, he was bradycardic (HR 40). HR improved to 60 while in the ER. Lab studies show WBC 5.9, Hgb 13.8, K 3.9, Cr 1.31, glucose 109. BNP 1029. At bedside, pt is in NAD. A/P: Near syncope: likely due to bradycardia. Will avoid BB. Follow Orthostatic vitals, Carotid ultrasound and Echo. A.fib: Will continue telemetry and aspirin. Hold atenolol 100mg po daily due to bradycardia. Pt has a watchman device in place. HLD: statin Htn: Will likely reduce the dose of the atenolol. DVT ppx: SCD Code: full <Kori Ortiz - Last Filed: 12/04/23 18:08>
--- NOTE | 2023-12-04 17:25 | RAD REPORT ---
EXAM DESCRIPTION: CT - Head Brain Wo Cont - 12/04/2023 5:17 pm CLINICAL HISTORY: DIZZINESS COMPARISON: Head Brain Wo Cont dated 04/12/2021 TECHNIQUE: All CT scans are performed using dose optimization technique as appropriate and may inclu de automated exposure control or mA/KV adjustment according to patient size. FINDINGS: No intracranial hemorrhage, hydrocephalus or extra-axial fluid collection.No areas of brai n edema or evidence of midline shift. Mucous retention cysts in the maxillary sinuses. Several opacified ethmoid air cells. The calvarium i s intact. IMPRESSION: No acute intracranial abnormality.
[2023-12-04] MEDS: ACETAMINOPHEN 325 MG TABLET PO PRN (21:35)
[2023-12-04 21:44] LABS: Thyroid Stimulating Hormone 0.377 uIU/mL (0.358-3.740); Troponin High Sensitivity 9.7 pg/mL (<58.9)
[2023-12-04 23:24] VITALS: BMI 27.2
[2023-12-05 00:39] LABS: Specific Gravity 1.017 (1.005-1.030); Urine Bilirubin NEGATIVE (Negative); Urine Blood Negative (Negative); Urine Clarity Clear (Clear); Urine Color Light-Yellow (Yellow); Urine Glucose NEGATIVE (Negative); Urine Protein NEGATIVE (Negative); Urine Urobilinogen 1+ (Normal); Urine pH 5.5 (5.0-7.0)
[2023-12-05 00:53] VITALS: O2SAT 98
[2023-12-05 04:02] LABS: Absolute Lymphocytes (CBC) 2.1 K/uL (0.7-4.9); Hematocrit 38.4 % (39.6-49.0); Lymphocytes % 28.6 % (15.3-44.8); MCV 92.1 fL (80-100); MPV 9.4 fL (7.6-11.3); Platelets 135 thou/uL (152-406); RBC Red Blood Cell Count 4.17 M/uL (4.33-5.43)
[2023-12-05 04:30] LABS: Albumin 3.6 g/dL (3.4-5.0); Bilirubin Total 0.7 mg/dL (0.2-1.0); Magnesium 2.2 mg/dL (1.6-2.4); Protein, Total 6.5 g/dL (6.4-8.2); Troponin High Sensitivity 11.7 pg/mL (<58.9)
[2023-12-05] MEDS: atenoloL 25 MG TAB PO SCH (05:42)
--- NOTE | 2023-12-05 08:29 | RAD REPORT ---
EXAM DESCRIPTION: - CP - 12/05/2023 8:22 am CLINICAL HISTORY: syncope COMPARISON: No comparisons TECHNIQUE: Real-time sonographic evaluation of both carotid systems was performed. Doppler interroga tion was performed with waveform tracing bilaterally. FINDINGS: Normal high resistance waveforms are noted in both external carotid arteries. The common c arotid arteries and internal carotid arteries show normal low resistance waveforms. Mild soft plaque noted in the left carotid bulb and distal left carotid artery. Peak systolic and end diastolic velocity values and the ICA/CCA ratios are in the non-hemodynamically significant range. Antegrade flow seen in both vertebral arteries. IMPRESSION: No evidence of a hemodynamically significant stenosis. Mild soft plaque in the left dist al common carotid artery and proximal ICA.
--- NOTE | 2023-12-05 09:15 | P.PN ---
Subjective Date of Service: 12/05/23 Chief Complaint: near syncope, a. fib with slow ventricular response Subjective: No new changes Review of Systems General: Unremarkable Eyes: Unremarkable ENT: Unremarkable Respiratory: Unremarkable Cardiovascular: Unremarkable Gastrointestinal: Unremarkable Genitourinary: Unremarkable Musculoskeletal: Unremarkable Integumentary: Unremarkable Neurological: Unremarkable Lymphatics: Unremarkable Physical Examination - Vital Signs Temperature: 97.2 F Blood Pressure: 129/87 Pulse: 68 Respirations: 18 Pulse Ox (%): 99 - Physical Exam General: Alert, In no apparent distress, Oriented x3 HEENT: Atraumatic, Normocephalic, PERRLA Neck: Supple, 2+ carotid pulse no bruit Respiratory: Clear to auscultation bilaterally Cardiovascular: Irregular heart rate/rhythm (afib with Slow RVR, (PVCs - triplet run v. tach per technical developer at 0728)) Capillary refill: <2 Seconds Gastrointestinal: Soft and benign Musculoskeletal: No clubbing, No swelling Integumentary: No rashes Neurological: Normal strength at 5/5 x4 extr, Normal tone Lymphatics: No axilla or inguinal lymphadenopathy External genitalia: Deferred Rectal: Deferred - Studies Laboratory Data (last 24 hrs) 12/04/23 12/04/23 12/04/23 15:05 15:05 15:05 WBC 5.90 Hgb 13.8 Hct 40.1 Plt Count 153 PT 12.5 INR 1.14 APTT 29.3 Sodium 140 Potassium 3.9 BUN 16 Creatinine 1.31 H Glucose 109 H Magnesium 2.2 Total Bilirubin 0.9 AST 22 ALT 32 Alkaline Phosphatase 70 Microbiology Data (last 24 hrs): 12/04/23 15:05 Nasopharnyx Influenza Type A Antigen Screen - Final 12/04/23 15:05 Nasopharnyx Influenza Type B Antigen Screen - Final Assessment And Plan - Plan Atrial fib with SVR: Hold Atenolol for HR < 60, SBP < 100 ASA EC 1mg po daily Consult Cardiology SCDs Elevated BNP with ALFREDO: Trend creatinine Trend electrolytes and replete continue Lasix 20mg po daily ECHO I&O, daily weights Near syncope: CT head negative for acute, Carotid doppler with mild soft plaque: "IMPRESSION: No evidence of a hemodynamically significant stenosis. Mild soft plaque in the left distal common carotid artery and proximal ICA. Dictated By: Mike Delcid MD 12/05/23 3147" Neuro checks q4h while awake Trend troponin Orthostatic VS DVT prophylaxis: SCDs, ASA (pt with hx of Watchman 2nd to GIB)
[2023-12-05] MEDS: ASPIRIN EC 81 MG TAB PO SCH (10:10)
[2023-12-05] MEDS: FUROSEMIDE 20 MG TABLET PO SCH (10:10)
--- NOTE | 2023-12-05 11:36 | P.DS ---
Admission Date: 12/04/23 Discharge Date: 12/05/23 Reason for Admission: near syncope, a. fib with slow ventricular response Brief History of Present Illness: Mr. Tomi Rojo is a 73-year-old male with a with past medical history of hypertension, hyperlipidemia, and atrial fibrillation s/p a Watchman procedure post GI bleed. Currently he takes atenolol 100 mg p.o. daily, aspirin 81 mg p.o. daily, Crestor, and Lasix 20 mg p.o. daily. He is currently a patient of Dr. Kendrick and believes his last echo was around June of last year. He presented to the emergency room and today after an episode of severe sudden dizziness, diaphoresis, and near syncope. On EMS arrival the patient was hypotensive and bradycardic. Current vital signs in the emergency room are 126/5 heart rate of 64, respiratory rate 19. He denies chest pain, shortness of breath, or nausea but feels tired. He will be admitted to the hospital for serial enzymes and observation of his rhythm. Hospital Course: Mr. Tomi Rojo is a 73-year-old male with a with past medical history of hypertension, hyperlipidemia, and atrial fibrillation s/p a Watchman procedure post GI bleed. Currently he takes atenolol 100 mg p.o. daily, aspirin 81 mg p.o. daily, Crestor, and Lasix 20 mg p.o. daily. He denies chest pain, shortness of breath, or nausea but feels tired. He is feeling back to normal this am. BP and HR significantly better with 25mg Atenolol down from 100mg. Will continue on 25mg po and f/u with Dr. Kendrick next week. <Genevieve Kenney - Last Filed: 12/05/23 16:55> Admission Date: 12/04/23 Discharge Date: 12/05/23 Hospital Course: Pt seen and examined. I agree with the note by the PREFORM [employer]ATE MAKER. Ok to discharge pt with atenolol 25mg po daily. Pt needs to follow up with Cardiology within 1 week <Kori Ortiz - Last Filed: 12/05/23 21:21> Disposition: DC HOME/HOME HEALTH CARE Discharge Condition: GOOD Vital Signs/Physical Exam: Temp Pulse Resp BP Pulse Ox 97.2 F 68 18 129/87 99 12/05/23 11:30 12/05/23 11:30 12/05/23 11:30 12/05/23 11:30 12/05/23 11:30 General: Alert, In no apparent distress, Oriented x3 HEENT: Atraumatic, Normocephalic Neck: 2+ carotid pulse no bruit Respiratory: Clear to auscultation bilaterally, Normal air movement Cardiovascular: Irregular heart rate/rhythm, Systolic murmur Capillary refill: <2 Seconds Gastrointestinal: Soft and benign Musculoskeletal: No clubbing Integumentary: No rashes, No breakdown Neurological: Normal speech, Normal strength at 5/5 x4 extr Lymphatics: No axilla or inguinal lymphadenopathy External genitalia: Deferred Rectal: Deferred Laboratory Data at Discharge: WBC 7.30 thou/uL (4.3-10.9) 12/05/23 03:46 Hgb 13.2 g/dL (13.6-17.9) L 12/05/23 03:46 Hct 38.4 % (39.6-49.0) L 12/05/23 03:46 Plt Count 135 thou/uL (152-406) L 12/05/23 03:46 PT 12.5 SECONDS (9.5-12.5) 12/04/23 15:05 INR 1.14 12/04/23 15:05 APTT 29.3 SECONDS (24.3-36.9) 12/04/23 15:05 Sodium 141 mEq/L (136-145) 12/05/23 03:46 Potassium 4.0 mEq/L (3.5-5.1) 12/05/23 03:46 BUN 20 mg/dL (7-18) H 12/05/23 03:46 Creatinine 1.02 mg/dL (0.70-1.30) 12/05/23 03:46 Glucose 102 mg/dL (74-106) 12/05/23 03:46 Magnesium 2.2 mg/dL (1.6-2.4) 12/05/23 03:46 Total Bilirubin 0.7 mg/dL (0.2-1.0) 12/05/23 03:46 AST 21 U/L (15-37) 12/05/23 03:46 ALT 28 U/L (16-61) 12/05/23 03:46 Alkaline Phosphatase 69 U/L (45-117) 12/05/23 03:46 <Kenney,Genevieve - Last Filed: 12/05/23 16:55> Vital Signs/Physical Exam: Temp Pulse Resp BP Pulse Ox 97.2 F 68 18 129/87 99 12/05/23 16:55 12/05/23 16:55 12/05/23 16:55 12/05/23 16:55 12/05/23 16:55 Laboratory Data at Discharge: WBC 7.30 thou/uL (4.3-10.9) 12/05/23 03:46 Hgb 13.2 g/dL (13.6-17.9) L 12/05/23 03:46 Hct 38.4 % (39.6-49.0) L 12/05/23 03:46 Plt Count 135 thou/uL (152-406) L 12/05/23 03:46 PT 12.5 SECONDS (9.5-12.5) 12/04/23 15:05 INR 1.14 12/04/23 15:05 APTT 29.3 SECONDS (24.3-36.9) 12/04/23 15:05 Sodium 141 mEq/L (136-145) 12/05/23 03:46 Potassium 4.0 mEq/L (3.5-5.1) 12/05/23 03:46 BUN 20 mg/dL (7-18) H 12/05/23 03:46 Creatinine 1.02 mg/dL (0.70-1.30) 12/05/23 03:46 Glucose 102 mg/dL (74-106) 12/05/23 03:46 Magnesium 2.2 mg/dL (1.6-2.4) 12/05/23 03:46 Total Bilirubin 0.7 mg/dL (0.2-1.0) 12/05/23 03:46 AST 21 U/L (15-37) 12/05/23 03:46 ALT 28 U/L (16-61) 12/05/23 03:46 Alkaline Phosphatase 69 U/L (45-117) 12/05/23 03:46 <Kori Ortiz - Last Filed: 12/05/23 21:21> <Kenney,Genevieve - Last Filed: 12/05/23 16:55> <Kori Ortiz - Last Filed: 12/05/23 21:21> Home Medications: Azelastine [Astelin 137MCG/Metered [place]*] 1 sprays NS BID PRN 02/05/21 Multivitamin/Iron/Folic Acid [Centrum Adults Tablet] 1 each PO DAILY 02/05/21 Rosuvastatin Calcium [Crestor] 20 mg PO BEDTIME 02/05/21 Potassium Chloride 1 tab PO DAILY 02/11/22 Aspirin [Low Dose Aspirin EC] 81 mg PO DAILY 03/20/23 Zolpidem Tartrate [Ambien*] 10 mg PO BEDTIME PRN PRN 03/20/23 Fluticasone/Vilanterol [Breo Ellipta 100-25 Mcg Inhalr] 1 puff IH DAILY 12/04/23 Furosemide [Lasix] 20 mg PO DAILY 12/04/23 atenoloL [Tenormin*] 25 mg PO [id number] #30 tab 12/05/23 New Medications: atenoloL [Tenormin*] 25 mg PO [id number] #30 tab Physician Discharge Instructions: Continue ad tri activity as tolerated. Take atenolol 25mg po daily. Follow up with Dr. Kendrick within 1 week. Follow up with PCP within 2 weeks Followup: SUMAYA SHELL [Primary Care Provider] - Aubrey Kendrick MD [ACTIVE - CAN ADMIT] -
[2023-12-05 16:59] VITALS: BP 129/87; TEMP 97.2
--- NOTE | 2023-12-07 11:03 | EKG ---
Test Date: 2023-12-04 Test Time: 15:07:18 [employer]: HB MEASUREMENT RESULTS: Intervals: Rate: 62 ME: QRSD: 110 QT: 442 QTc: 448 [place]: P: ME: QRS: 64 T: 47 INTERPRETIVE STATEMENTS: Atrial fibrillation Abnormal ECG Compared to ECG 03/09/2022 16:59:18 Right-axis deviation no longer present Electronically Signed On 12-07-23 10:59:10 [employer] by Shukri Valle
== END 2023-12-05 15:00 | disposition home health service (06) ==
LOC: ER 14:49 → ERHOLD 16:56 → INTOOBSV 17:09 → UNDOADMOB 17:09 → 2ND 19:27 → ERHOLD 19:27
PROVIDERS: ADMIT Hospitalist; ATTEND Hospitalist
DX: R55 Syncope and collapse (principal); I95.9 Hypotension, unspecified; R00.1 Bradycardia, unspecified; I10 Essential (primary) hypertension; R42 Dizziness and giddiness; R61 Generalized hyperhidrosis; N17.9 Acute kidney failure, unspecified; E78.5 Hyperlipidemia, unspecified; I48.11 Longstanding persistent atrial fibrillation; R79.89 Other specified abnormal findings of blood chemistry; Z79.01 Long term (current) use of anticoagulants; Z88.5 Allergy status to narcotic agent; Z11.52 Encounter for screening for COVID-19
CPT/HCPCS: 85025 ×2; 80048; 36415; 83735 ×2; 85610; 80076; 85730; 84443; 81003; 84484 ×3; 80053; 83880; 87804 ×2; 70450; 71045; 93880; 96360; 99285; 87811; J7040; 93005